=== PATIENT | female | born 1995 | race Caucasian/White ===

== ENCOUNTER 2016-03-21 14:48 | Emergency (ER) | payer BC, MEDICAID ==
[~2016-03-21] VITALS: Ht 177.8 cm; Wt 64.4 kg
[~2016-03-21 14:48] MED LIST: BACT800T5 PO; CLIN1CAP6 PO; DOLU1TAB4 PO; EMTR1TAB5 PO; TRAM50TA PO
[2016-03-21 14:56] VITALS: BP 105/64; PULSE 94; RESP 16; TEMP 99.4; O2SAT 100
--- NOTE | 2016-03-21 16:25 | PD ---
HPI Chief Complaint: Skin Problem Time Seen by Provider: 15:48 Travel History International Travel<30 days: No Contact w/Intl Traveler<30days: No Traveled to known affect area: No History of Present Illness HPI 20-year-old female complains of infected lesions on the lower extremity. Patient has history of IV drug abuse and MRSA. Patient also has history of HIV positive. Patient states that she started having infected lesion on the lower extremity and the groin area for the past few days. Patient denies any fever chills. Patient denies any chest pain or shortness of breath. Reviewing medical records, patient had TD booster 3 years ago. Patient was admitted in August 2015 for endocarditis and polysubstance abuse. Patient was discharged on HIV medication. Patient also was Given 6 weeks of IV antibiotic at that time. PFSH Past Medical History ADHD: Yes Arthritis: No Asthma: No Autoimmune Disease: Yes Bipolar Disorder: Yes Anxiety: Yes Depression: Yes Heart Rhythm Problems: No Cancer: No Cardiovascular Problems: No High Cholesterol: No Chemotherapy: No Chest Pain: No Congestive Heart Failure: No COPD: No Cerebrovascular Accident: No Diabetes: No Diminished Hearing: No Endocrine: No Gastrointestinal Disorders: Yes GERD: No Genitourinary: No Headaches: No Hiatal Hernia: No Immune Disorder: Yes (HIV: DIAGNOSED JANUARY 2014) Implanted Vascular Access Dvce: No Kidney Stones: No Musculoskeletal: No Neurologic: Yes Psychiatric: Yes Reproductive: No Respiratory: No Immunizations Current: Yes (ALL UTD ) Migraines: Yes Pneumonia: Yes (HX) Radiation Therapy: No Renal Failure: No Seizures: No Sickle Cell Disease: No Sleep Apnea: No Thyroid Disease: No Ulcer: No ?: Not : 1 : 1 Past Surgical History Abdominal Surgery: Yes (hernia repair as an ) AICD: No Arteriovenous Shunt: No Cardiac Surgery: No Ear Surgery: No Endocrine Surgery: No Eye Surgery: No Genitourinary Surgery: No Gynecologic Surgery: No Insulin Pump: No Joint Replacement: No Oral Surgery: No Pacemaker: No Thoracic Surgery: No Tonsillectomy: Yes Other Surgery: Yes ("shattered face" with stitches, LEFT ARM) Social History Alcohol Use: Yes (OCC) Tobacco Use: Yes (1PPD) Substance Use: Yes (MARIJUANA, DILAUDID IV) Allergies-Medications (Allergen,Severity, Reaction): Coded Allergies: Buspar (Unverified Adverse Reaction, Severe, Irritability/Anxiety, 03/21/16) *MDRO Multi-Drug Resistant Organism (Verified Adverse Reaction, Unknown, ) MRSA (wrist wound) 11/2014; MRSA (blood & arm-08/2015)&(hand-01/21/16) Reported Meds & Prescriptions Reported Meds & Active Scripts Active Tramadol (Tramadol HCl) 50 Mg Tab 50 Mg PO Q8H PRN Bactrim DS (Sulfamethoxazole-Trimethoprim) 800-160 Mg Tab 1 Tab PO BID Clindamycin (Clindamycin HCl) 300 Mg Cap 300 Mg PO Q6H 10 Days Reported Tivicay (Dolutegravir Sodium) 10 Mg Tab 10 Mg PO DAILY Truvada (Emtricitabine-Tenofovir Disoproxil Fumarate) 100-150 Mg Tab 1 Tab PO DAILY Review of Systems General / Constitutional: No: Fever Eyes: No: Visual changes HENT: No: Headaches Cardiovascular: No: Chest Pain or Discomfort Respiratory: No: Shortness of Breath Gastrointestinal: No: Abdominal Pain Genitourinary: No: Dysuria Musculoskeletal: No: Pain Skin: No Rash Neurologic: No: Weakness Psychiatric: No: Depression Endocrine: No: Polydipsia Hematologic/Lymphatic: No: Easy Bruising Physical Exam Narrative GENERAL: Well-nourished, well-developed patient. SKIN: Warm and dry. Patient has multiple areas of infected lesions on the lower extremity associated with redness swelling. No discharge. No induration. HEAD: Normocephalic. EYES: No scleral icterus. No injection or drainage. NECK: Supple, trachea midline. No JVD or lymphadenopathy. CARDIOVASCULAR: Regular rate and rhythm without murmurs, gallops, or rubs. No heart murmur noted. RESPIRATORY: Breath sounds equal bilaterally. No accessory muscle use. GASTROINTESTINAL: Abdomen soft, non-tender, nondistended. MUSCULOSKELETAL: No cyanosis, or edema. BACK: Nontender without obvious deformity. No CVA tenderness. Data Data Last Documented VS Vital Signs Date Time Temp Pulse Resp B/P Pulse Ox O2 Delivery O2 Flow Rate FiO2 03/21/16 14:56 99.4 94 16 105/64 100 MDM Medical Decision Making Medical Screen Exam Complete: Yes Emergency Medical Condition: Yes Differential Diagnosis Differential diagnosis including folliculitis, cellulitis, abscess, bacterial endocarditis. Narrative Course 20-year-old female with multiple infected lesions lower extremity and groin. History IV drug abuse. History of HIV positive. Patient's afebrile, vital signs stable. Patient does not have any tachycardia or tachypnea. Patient does not have any cardiac murmur. Patient was offered clindamycin IM injection and prescription for clindamycin and Bactrim DS. Patient refused treatment and left AMA. Diagnosis Primary Impression: CELLULITIS OF UNSPECIFIED PART OF LIMB Patient Instructions: General Instructions Additional Instructions: Patient left AMA. Disposition: 07 AGAINST MEDICAL ADVICE Condition: Grayson Quintana MD Mar 21, 2016 16:25
[2016-03-22] MEDS ORDERED: CLIN1CAP5 PO (10:24)
[2016-03-22] MEDS ORDERED: BACT800T5 PO (10:24)
== END 2016-03-21 16:12 | disposition left against medical advice (07) ==
LOC: PHED 14:48
DX: L03.119 Cellulitis of unspecified part of limb (principal); F17.200 Nicotine dependence, unspecified, uncomplicated; Z21 Asymptomatic human immunodeficiency virus [HIV] infection status; Z86.14 Personal history of Methicillin resistant Staphylococcus aureus infection; Z87.19 Personal history of other diseases of the digestive system; Z87.01 Personal history of pneumonia (recurrent); Z86.69 Personal history of other diseases of the nervous system and sense organs; Z53.29 Procedure and treatment not carried out because of patient's decision for other reasons
CPT/HCPCS: 99282

== ENCOUNTER 2016-03-22 08:04 | Emergency (ER) | payer BC, MEDICAID ==
[~2016-03-22] VITALS: Ht 177.8 cm; Wt 63.5 kg
[2016-03-22 08:08] VITALS: BP 102/72; PULSE 88; RESP 16; TEMP 97.4; O2SAT 100
--- NOTE | 2016-03-22 08:28 | PD ---
HPI Chief Complaint: Skin Problem Time Seen by Provider: 08:13 Travel History International Travel<30 days: No Contact w/Intl Traveler<30days: No Traveled to known affect area: No History of Present Illness HPI 20-year-old female complains infected lesions on the lower extremity. Patient states that the symptoms started several days ago. Patient has history of HIV positive and IV drug abuse. Patient does not know her recent CD4 count or viral loads. Patient states that she is on HIV medication. Patient does not know the name of her ID specialist. Patient denies any fever chills. Patient denies any chest pain or shortness of breath. Patient was seen in emergency room yesterday and left AMA. Patient returned today requesting blood work and treatment. Patient's up-to-date with TD booster. PFSH Past Medical History ADHD: Yes Arthritis: No Asthma: No Autoimmune Disease: Yes Bipolar Disorder: Yes Anxiety: Yes Depression: Yes Heart Rhythm Problems: No Cancer: No Cardiovascular Problems: No High Cholesterol: No Chemotherapy: No Chest Pain: No Congestive Heart Failure: No COPD: No Cerebrovascular Accident: No Diabetes: No Diminished Hearing: No Endocrine: No Gastrointestinal Disorders: Yes GERD: No Genitourinary: No Headaches: No Hiatal Hernia: No Heparin Induced Thrombocytopen: No Hypertension: No Immune Disorder: Yes (HIV: DIAGNOSED JANUARY 2014) Implanted Vascular Access Dvce: No Kidney Stones: No Musculoskeletal: No Neurologic: Yes Psychiatric: Yes Reproductive: No Respiratory: No Immunizations Current: Yes (ALL UTD ) Migraines: Yes Pneumonia: Yes (HX) Radiation Therapy: No Renal Failure: No Seizures: No Sickle Cell Disease: No Sleep Apnea: No Thyroid Disease: No Ulcer: No Tetanus Vaccination: < 5 Years ?: Not LMP: UNKNOWN : 1 : 1 Past Surgical History Abdominal Surgery: Yes (hernia repair as an ) AICD: No Arteriovenous Shunt: No Cardiac Surgery: No Ear Surgery: No Endocrine Surgery: No Eye Surgery: No Genitourinary Surgery: No Gynecologic Surgery: No Insulin Pump: No Joint Replacement: No Neurologic Surgery: No Oral Surgery: No Pacemaker: No Thoracic Surgery: No Tonsillectomy: Yes Other Surgery: Yes ("shattered face" with stitches, LEFT ARM) Social History Alcohol Use: Yes (OCC) Tobacco Use: Yes (1PPD) Substance Use: Yes (MARIJUANA, DILAUDID IV) Allergies-Medications (Allergen,Severity, Reaction): Coded Allergies: Buspar (Unverified Adverse Reaction, Severe, Irritability/Anxiety, 03/22/16) *MDRO Multi-Drug Resistant Organism (Verified Adverse Reaction, Unknown, ) MRSA (wrist wound) 11/2014; MRSA (blood & arm-08/2015)&(hand-01/21/16) Reported Meds & Prescriptions Reported Meds & Active Scripts Active Reported Tivicay (Dolutegravir Sodium) 10 Mg Tab 10 Mg PO DAILY Review of Systems General / Constitutional: No: Fever Eyes: No: Visual changes HENT: No: Headaches Cardiovascular: No: Chest Pain or Discomfort Respiratory: No: Shortness of Breath Gastrointestinal: No: Abdominal Pain Genitourinary: No: Dysuria Musculoskeletal: No: Pain Skin: No Rash Neurologic: No: Weakness Psychiatric: No: Depression Endocrine: No: Polydipsia Hematologic/Lymphatic: No: Easy Bruising Physical Exam Narrative GENERAL: Well-nourished, well-developed patient. SKIN: Warm and dry. Patient has multiple infected lesions on the lower extremity associated with redness swelling. No induration. HEAD: Normocephalic. EYES: No scleral icterus. No injection or drainage. NECK: Supple, trachea midline. No JVD or lymphadenopathy. CARDIOVASCULAR: Regular rate and rhythm without murmurs, gallops, or rubs. RESPIRATORY: Breath sounds equal bilaterally. No accessory muscle use. GASTROINTESTINAL: Abdomen soft, non-tender, nondistended. MUSCULOSKELETAL: No cyanosis, or edema. BACK: Nontender without obvious deformity. No CVA tenderness. Neurologic exam normal. Data Data Last Documented VS Vital Signs Date Time Temp Pulse Resp B/P Pulse Ox O2 Delivery O2 Flow Rate FiO2 03/22/16 09:32 95 16 119/69 100 Room Air 03/22/16 08:08 97.4 Orders Complete Blood Count With Diff (03/22/16 08:17) Comprehensive Metabolic Panel (03/22/16 08:17) Blood Culture (03/22/16 08:17) Urinalysis - C+S If Indicated (03/22/16 08:17) Drug Screen, Random Urine (03/22/16 08:17) Chest, Single Ap (03/22/16 08:17) Iv Access Insert/Monitor (03/22/16 08:17) Ecg Monitoring (03/22/16 08:17) Oximetry (03/22/16 08:17) Ed Urine Pregnancytest Poc (03/22/16 08:17) Vancomycin Inj (Vancomycin Inj) (03/22/16 08:30) Consult Vascular Access Team (03/22/16 ) Clindamycin Inj (Cleocin Inj) (03/22/16 09:30) Labs Laboratory Tests Test 03/22/16 09:15 White Blood Count 5.4 TH/MM3 Red Blood Count 3.60 MIL/MM3 Hemoglobin 10.2 GM/DL Hematocrit 30.9 % Mean Corpuscular Volume 85.9 FL Mean Corpuscular Hemoglobin 28.4 PG Mean Corpuscular Hemoglobin 33.1 % Concent Red Cell Distribution Width 12.9 % Platelet Count 140 TH/MM3 Mean Platelet Volume 9.3 FL Neutrophils (%) (Auto) 69.6 % Lymphocytes (%) (Auto) 18.3 % Monocytes (%) (Auto) 11.3 % Eosinophils (%) (Auto) 0.6 % Basophils (%) (Auto) 0.2 % Neutrophils # (Auto) 3.8 TH/MM3 Lymphocytes # (Auto) 1.0 TH/MM3 Monocytes # (Auto) 0.6 TH/MM3 Eosinophils # (Auto) 0.0 TH/MM3 Basophils # (Auto) 0.0 TH/MM3 CBC Comment DIFF FINAL Differential Comment Sodium Level 141 MEQ/L Potassium Level 3.5 MEQ/L Chloride Level 108 MEQ/L Carbon Dioxide Level 23.7 MEQ/L Anion Gap 9 MEQ/L Creatinine 0.68 MG/DL Estimat Glomerular Filtration 110 ML/MIN Rate Random Glucose 116 MG/DL Calcium Level 8.3 MG/DL Aspartate Amino Transf 40 U/L (AST/SGOT) Alkaline Phosphatase 181 U/L Total Protein 7.1 GM/DL Albumin 3.1 GM/DL MDM Medical Decision Making Medical Screen Exam Complete: Yes Emergency Medical Condition: Yes Medical Record Reviewed: Yes Interpretation(s) Last Impressions Chest X-Ray 03/22/1617 Signed Impressions: Service Date/Time: Tuesday, March 22, 2016 08:39 - CONCLUSION: No acute disease. No significant change has occurred. Lazarus Burton MD 10:22 AM. CBC hemoglobin 10.2 hematocrit 30.9. WBC 5.4. Normal differential. CMP incomplete results. Patient requests to leave now. Differential Diagnosis Differential diagnosis including folliculitis, cellulitis, abscess. Patient has history of endocarditis in the past. Narrative Course 20-year-old female with history of HIV positive, IV drug abuse, with infected lesions lower extremity. Patient has history of endocarditis in the past. Vancomycin 1 g IV given. Diagnosis Primary Impression: CELLULITIS OF UNSPECIFIED PART OF LIMB Patient Instructions: General Instructions Additional Instructions: Take medications as directed. Follow-up with local physician. Return if worse. Med/Other Pt SpecificInfo: Prescription(s) given Scripts Clindamycin 150 Mg Cap2 Tab PO Q6H #80 CAP Prov:Grayson Verma MD 03/22/16 Sulfamethoxazole-Trimethoprim (Bactrim DS)800-160 Mg Tab1 Tab PO BID #20 TAB Prov:Grayson Verma MD 03/22/16 Disposition: 01 DISCHARGE HOME Condition: Stable Grayson Verma MD Mar 22, 2016 08:28
[2016-03-22] MEDS ORDERED: VANCOMYCIN INJ 1,000 MG in SODIUM CHLOR 0.9% 250 ML INJ 250 ML IV ONE (08:30)
--- NOTE | 2016-03-22 09:07 | RADHPO ---
EXAM DATE/TIME: 03/22/2016 08:39 [facility] COMPARISON: CHEST SINGLE AP, September 01, 2015, 9:08. INDICATIONS : Short of breath. MEDICAL HISTORY : None. SURGICAL HISTORY : None. ENCOUNTER: Initial ACUITY: 1 day PAIN SCORE: 0/10 LOCATION: Bilateral chest FINDINGS: A single view of the chest demonstrates the lungs to be symmetrically aerated without evidence of mas s, infiltrate or effusion. The cardiomediastinal contours are unremarkable. Osseous structures are intact. CONCLUSION: No acute disease. No significant change has occurred. Lazarus Burton MD on March 22, 2016 at 9:03 Board Certified Radiologist. This report was verified electronically.
[2016-03-22] MEDS ORDERED: CLINDAMYCIN PHOS 600 MG/4 ML VIAL IM ONE (09:30)
[2016-03-22 09:31] VITALS: RESP 16; O2SAT 100
[2016-03-22 09:32] VITALS: BP 119/69; PULSE 95; RESP 16; O2SAT 100
[2016-03-22 09:45] LABS: AUTOMATED NEUTROPHIL # 3.8 TH/MM3 (1.8-7.7); BASOPHIL % 0.2 % (0.0-2.0); EOSINOPHIL % 0.6 % (0.0-4.0); HEMATOCRIT 30.9 % (35.0-46.0); HEMO FLAGS DIFF FINAL; LYMPH % 18.3 % (9.0-44.0); MEAN CELL VOLUME 85.9 FL (80.0-100.0); MEAN CORPUSCULAR HEMOGLOBIN 28.4 PG (27.0-34.0); MEAN CORPUSCULAR HGB CONC 33.1 % (32.0-36.0); MONO % 11.3 % (0.0-8.0); NEUT % 69.6 % (16.0-70.0); PLATELET COUNT 140 TH/MM3 (150-450); RED CELL DISTRIBUTION WIDTH 12.9 % (11.6-17.2); WHITE BLOOD COUNT 5.4 TH/MM3 (4.0-11.0)
[2016-03-22 10:13] LABS: BICARBONATE 23.7 MEQ/L (21.0-32.0)
[2016-03-22 10:15] LABS: ANION GAP 9 MEQ/L (5-15); CHLORIDE 108 MEQ/L (98-107); POTASSIUM 3.5 MEQ/L (3.5-5.1); SODIUM (NA) 141 MEQ/L (136-145)
[2016-03-22 10:16] LABS: AST (GOT) 40 U/L (16-38); GLOMERULAR FILTRATION RATE 110 ML/MIN (>89)
[2016-03-22 10:19] LABS: ALKALINE PHOSPHATASE 181 U/L (45-117)
[2016-03-22] MEDS ORDERED: CLIN1CAP5 PO (10:24)
[2016-03-22] MEDS ORDERED: BACT800T5 PO (10:24)
[2016-03-22 10:31] LABS: ALT (GPT) 60 U/L (9-42)
[2016-03-22 10:32] LABS: BLOOD UREA NITROGEN 10 MG/DL (7-18)
[2016-03-22 10:39] LABS: TOTAL BILIRUBIN ADULT 0.3 MG/DL (0.2-1.0)
== END 2016-03-22 10:29 | disposition home or self-care (01) ==
LOC: PHED 08:04
DX: L03.119 Cellulitis of unspecified part of limb (principal); R06.02 Shortness of breath; B20 Human immunodeficiency virus [HIV] disease; F19.20 Other psychoactive substance dependence, uncomplicated; F17.210 Nicotine dependence, cigarettes, uncomplicated; F90.9 Attention-deficit hyperactivity disorder, unspecified type
CPT/HCPCS: 71010; 80053; 85025; 87040; 96372

== ENCOUNTER 2016-05-03 19:58 | Emergency (ER) | payer BC, OTHER ==
[~2016-05-03] VITALS: Ht 175.3 cm; Wt 61.0 kg
[~2016-05-03 19:58] MED LIST changes: +CLIN1CAP5 PO; -CLIN1CAP6 PO; -TRAM50TA PO
[2016-05-03 19:59] VITALS: BP 121/74; PULSE 99; RESP 18; TEMP 98.3; O2SAT 99
[2016-05-04 00:04] VITALS: BP 119/56; PULSE 97; RESP 20; TEMP 97.7; O2SAT 100
[2016-05-04] MEDS ORDERED: KETOROLAC TROMETHAMINE 30 MG/ML (IVP) VIAL IVP ONE (00:45)
[2016-05-04] MEDS ORDERED: CLINDAMYCIN INJ 600 MG in SODIUM CHLORIDE 0.9% INJ 100 ML IV ONE (00:45)
[2016-05-04] MEDS ORDERED: LIDOCAINE HCL 1% 50 ML VIAL INFIL ONE (00:45)
[2016-05-04] MEDS ORDERED: SODIUM CHLOR 0.9% 1000 ML INJ 1,000 ML IV ONE (00:45)
[2016-05-04] MEDS ORDERED: KETOROLAC TROMETHAMINE 60 MG/2 ML (IM) VIAL IM ONE (00:45)
--- NOTE | 2016-05-04 00:45 | PD ---
HPI Chief Complaint: Skin Problem Time Seen by Provider: 00:02 Travel History International Travel<30 days: No Contact w/Intl Traveler<30days: No Traveled to known affect area: No History of Present Illness HPI 21yo F with PMH of HIV not on medication, IVDA uses IV dilaudid presents to the ED with c/o right buttock abscess for 2 days. States it started to drain today. States fever in the morning. Denies chest pain, vomiting, abdominal pain. PFSH Past Medical History ADHD: Yes Arthritis: No Asthma: No Autoimmune Disease: Yes Bipolar Disorder: Yes Anxiety: Yes Depression: Yes Heart Rhythm Problems: No Cancer: No Cardiovascular Problems: No High Cholesterol: No Chemotherapy: No Chest Pain: No Congestive Heart Failure: No COPD: No Cerebrovascular Accident: No Diabetes: No Diminished Hearing: No Endocrine: No Gastrointestinal Disorders: Yes GERD: No Genitourinary: No Headaches: No Hiatal Hernia: No Heparin Induced Thrombocytopen: No Hypertension: No Immune Disorder: Yes (HIV: DIAGNOSED JANUARY 2014) Implanted Vascular Access Dvce: No Kidney Stones: No Musculoskeletal: No Neurologic: Yes Psychiatric: Yes Reproductive: No Respiratory: No Immunizations Current: Yes (ALL UTD ) Migraines: Yes Pneumonia: Yes (HX) Radiation Therapy: No Renal Failure: No Seizures: No Sickle Cell Disease: No Sleep Apnea: No Thyroid Disease: No Ulcer: No ?: Unknown LMP: IRREGULAR : 1 : 1 Past Surgical History Abdominal Surgery: Yes (hernia repair as an ) AICD: No Arteriovenous Shunt: No Cardiac Surgery: No Ear Surgery: No Endocrine Surgery: No Eye Surgery: No Genitourinary Surgery: No Gynecologic Surgery: No Insulin Pump: No Joint Replacement: No Neurologic Surgery: No Oral Surgery: No Pacemaker: No Thoracic Surgery: No Tonsillectomy: Yes Other Surgery: Yes ("shattered face" with stitches, LEFT ARM) Social History Alcohol Use: Yes (OCC) Tobacco Use: Yes (1PPD) Substance Use: Yes (MARIJUANA, DILAUDID IV/METH) Allergies-Medications (Allergen,Severity, Reaction): Coded Allergies: Buspar (Unverified Adverse Reaction, Severe, Irritability/Anxiety, 05/03/16 ) *MDRO Multi-Drug Resistant Organism (Verified Adverse Reaction, Unknown, ) MRSA (wrist wound) 11/2014; MRSA (blood & arm-08/2015)&(hand-01/21/16) Reported Meds & Prescriptions Reported Meds & Active Scripts Active Clindamycin (Clindamycin HCl) 150 Mg Cap 2 Tab PO Q6H Bactrim DS (Sulfamethoxazole-Trimethoprim) 800-160 Mg Tab 1 Tab PO BID Reported Tivicay (Dolutegravir Sodium) 10 Mg Tab 10 Mg PO DAILY Truvada (Emtricitabine-Tenofovir Disoproxil Fumarate) 100-150 Mg Tab 1 Tab PO DAILY Review of Systems Except as stated in HPI: all other systems reviewed are Neg Physical Exam Narrative GENERAL: 21yo F not in distress. SKIN: Warm and dry. HEAD: Atraumatic. Normocephalic. EYES: Pupils equal and round. No scleral icterus. No injection or drainage. ENT: No nasal bleeding or discharge. Mucous membranes pink and moist. NECK: Trachea midline. No JVD. CARDIOVASCULAR: Regular rate and rhythm. No murmur appreciated. RESPIRATORY: No accessory muscle use. Clear to auscultation. Breath sounds equal bilaterally. GASTROINTESTINAL: Abdomen soft, non-tender, nondistended. No rebound tenderness or guarding. BUTTOCKS: +3cm by 3cm erythema with central small 0.5cm fluctuance in right gluteus. Draining sanguinous fluid with expression. MUSCULOSKELETAL: No obvious deformities. No clubbing. No cyanosis. No edema. NEUROLOGICAL: Awake and alert. No obvious cranial nerve deficits. Motor grossly within normal limits. Normal speech. PSYCHIATRIC: Appropriate mood and affect; insight and judgment normal.2 Data Data Last Documented VS Vital Signs Date Time Temp Pulse Resp B/P Pulse Ox O2 Delivery O2 Flow Rate FiO2 05/04/16 00:04 97.7 97 20 119/56 100 Room Air Orders Lidocaine 1% Inj (50 Ml) (Xylocaine 1% I (05/04/16 00:45) Ketorolac Inj (Toradol Inj) (05/04/16 00:45) Basic Metabolic Panel (Bmp) (05/04/16 00:45) Complete Blood Count With Diff (05/04/16 00:45) Blood Culture (05/04/16 00:45) Iv Access Insert/Monitor (05/04/16 00:45) Ketorolac Inj (Toradol Inj) (05/04/16 00:45) Clindamycin Inj (Cleocin Inj) (05/04/16 00:45) Sodium Chlor 0.9% 1000 Ml Inj (Ns 1000 M (05/04/16 00:45) Labs Laboratory Tests Test 05/04/16 01:12 White Blood Count 7.9 TH/MM3 Red Blood Count 4.32 MIL/MM3 Hemoglobin 12.3 GM/DL Hematocrit 35.4 % Mean Corpuscular Volume 82.1 FL Mean Corpuscular Hemoglobin 28.6 PG Mean Corpuscular Hemoglobin 34.8 % Concent Red Cell Distribution Width 13.4 % Platelet Count 251 TH/MM3 Mean Platelet Volume 8.0 FL Neutrophils (%) (Auto) 67.2 % Lymphocytes (%) (Auto) 19.3 % Monocytes (%) (Auto) 10.6 % Eosinophils (%) (Auto) 2.4 % Basophils (%) (Auto) 0.5 % Neutrophils # (Auto) 5.3 TH/MM3 Lymphocytes # (Auto) 1.5 TH/MM3 Monocytes # (Auto) 0.8 TH/MM3 Eosinophils # (Auto) 0.2 TH/MM3 Basophils # (Auto) 0.0 TH/MM3 CBC Comment DIFF FINAL Differential Comment Sodium Level 138 MEQ/L Potassium Level 4.1 MEQ/L Chloride Level 103 MEQ/L Carbon Dioxide Level 26.2 MEQ/L Anion Gap 9 MEQ/L Blood Urea Nitrogen 16 MG/DL Creatinine 0.68 MG/DL Estimat Glomerular Filtration 109 ML/MIN Rate Random Glucose 104 MG/DL Calcium Level 9.1 MG/DL MDM Medical Decision Making Medical Screen Exam Complete: Yes Emergency Medical Condition: Yes Interpretation(s) Laboratory Tests Test 05/04/16 01:12 White Blood Count 7.9 TH/MM3 (4.0-11.0) Red Blood Count 4.32 MIL/MM3 (4.00-5.30) Hemoglobin 12.3 GM/DL (11.6-15.3) Hematocrit 35.4 % (35.0-46.0) Mean Corpuscular Volume 82.1 FL (80.0-100.0) Mean Corpuscular Hemoglobin 28.6 PG (27.0-34.0) Mean Corpuscular Hemoglobin 34.8 % Concent (32.0-36.0) Red Cell Distribution Width 13.4 % (11.6-17.2) Platelet Count 251 TH/MM3 (150-450) Mean Platelet Volume 8.0 FL (7.0-11.0) Neutrophils (%) (Auto) 67.2 % (16.0-70.0) Lymphocytes (%) (Auto) 19.3 % (9.0-44.0) Monocytes (%) (Auto) 10.6 % (0.0-8.0) Eosinophils (%) (Auto) 2.4 % (0.0-4.0) Basophils (%) (Auto) 0.5 % (0.0-2.0) Neutrophils # (Auto) 5.3 TH/MM3 (1.8-7.7) Lymphocytes # (Auto) 1.5 TH/MM3 (1.0-4.8) Monocytes # (Auto) 0.8 TH/MM3 (0-0.9) Eosinophils # (Auto) 0.2 TH/MM3 (0-0.4) Basophils # (Auto) 0.0 TH/MM3 (0-0.2) CBC Comment DIFF FINAL Differential Comment Sodium Level 138 MEQ/L (136-145) Potassium Level 4.1 MEQ/L (3.5-5.1) Chloride Level 103 MEQ/L (98-107) Carbon Dioxide Level 26.2 MEQ/L (21.0-32.0) Anion Gap 9 MEQ/L (5-15) Blood Urea Nitrogen 16 MG/DL (7-18) Creatinine 0.68 MG/DL (0.50-1.00) Estimat Glomerular Filtration 109 ML/MIN Rate (>89) Random Glucose 104 MG/DL (74-106) Calcium Level 9.1 MG/DL (8.5-10.1) Differential Diagnosis Localized abscess Narrative Course 21yo F with localized right gluteus abscess that is already draining on its own. Pt given clindamycin to cover MRSA and toradol for pain. Labs obtained since pt has HIV. No leukocytosis or neutropenia. BMP unremarkable. Pt is not tolerating I&D but it is already draining and we were able to express more pus out. It is very small and will continue to drain. Pt is nontoxic appearing. Return precautions given. VS stable. Diagnosis Primary Impression: Abscess of buttock, right Patient Instructions: General Instructions Departure Forms: Tests/Procedures Additional Instructions: Please follow up with your PMD in 3-7 days. Return to the ED if symptoms worsen. Med/Other Pt SpecificInfo: Prescription(s) given Scripts Ibuprofen 600 Mg [id number] Mg PO Q8HR PRN (PAIN) #20 TAB Ref 0 Prov:Donna Perez DO 05/04/16 Clindamycin 300 Mg [id number] Mg PO Q6H 7 Days Ref 0 Prov:Donna Perez DO 05/04/16 Disposition: 01 DISCHARGE HOME Condition: Stable Donna Perez DO May 04, 2016 00:44
[2016-05-04 01:28] LABS: AUTOMATED NEUTROPHIL # 5.3 TH/MM3 (1.8-7.7); BASOPHIL % 0.5 % (0.0-2.0); EOSINOPHIL # 0.2 TH/MM3 (0-0.4); EOSINOPHIL % 2.4 % (0.0-4.0); HEMATOCRIT 35.4 % (35.0-46.0); HEMO FLAGS DIFF FINAL; LYMPH % 19.3 % (9.0-44.0); LYMPHOCYTE # 1.5 TH/MM3 (1.0-4.8); MEAN CELL VOLUME 82.1 FL (80.0-100.0); MEAN CORPUSCULAR HEMOGLOBIN 28.6 PG (27.0-34.0); MEAN CORPUSCULAR HGB CONC 34.8 % (32.0-36.0); MONO % 10.6 % (0.0-8.0); NEUT % 67.2 % (16.0-70.0); PLATELET COUNT 251 TH/MM3 (150-450); RED BLOOD COUNT 4.32 MIL/MM3 (4.00-5.30); RED CELL DISTRIBUTION WIDTH 13.4 % (11.6-17.2); WHITE BLOOD COUNT 7.9 TH/MM3 (4.0-11.0)
[2016-05-04 01:37] LABS: BICARBONATE 26.2 MEQ/L (21.0-32.0); POTASSIUM 4.1 MEQ/L (3.5-5.1)
[2016-05-04] MEDS ORDERED: IBUP-232 PO (03:11)
[2016-05-04] MEDS ORDERED: CLIN1CAP6 PO (03:11)
== END 2016-05-04 03:38 | disposition home or self-care (01) ==
LOC: NEPC 19:58
DX: L02.31 Cutaneous abscess of buttock (principal); F17.210 Nicotine dependence, cigarettes, uncomplicated; F12.90 Cannabis use, unspecified, uncomplicated; F11.90 Opioid use, unspecified, uncomplicated
CPT/HCPCS: 80048; 85025; 87040; 96374; 96375; 99283; J1885; J7030

== ENCOUNTER 2016-06-02 17:03 | Emergency (ER) | payer BC, OTHER ==
[~2016-06-02] VITALS: Ht 167.6 cm; Wt 60.0 kg
[~2016-06-02 17:03] MED LIST changes: +CLIN1CAP6 PO; +IBUP-232 PO
[2016-06-02 17:07] VITALS: BP 121/71; PULSE 112; RESP 15; TEMP 98.6; O2SAT 97
[2016-06-02] MEDS ORDERED: SODIUM CHLORIDE 0.9% FLUSH 5 ML FLUSH IVF PRN (17:15)
[2016-06-02 17:18] VITALS: O2SAT 96
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
[2016-06-02] MEDS ORDERED: EMTR1TAB5 PO (18:04)
[2016-06-02] MEDS ORDERED: KLON2TAB PO (18:04)
[2016-06-02 18:12] LABS: ALKALINE PHOSPHATASE 220 U/L (45-117); TOTAL BILIRUBIN ADULT 0.7 MG/DL (0.2-1.0)
[2016-06-02 18:15] LABS: ALT (GPT) 180 U/L (10-53); ANION GAP 9 MEQ/L (5-15); AST (GOT) 79 U/L (15-37); BICARBONATE 27.1 MEQ/L (21.0-32.0); BLOOD UREA NITROGEN 14 MG/DL (7-18); CHLORIDE 103 MEQ/L (98-107); GLOMERULAR FILTRATION RATE 93 ML/MIN (>89); POTASSIUM 5.2 MEQ/L (3.5-5.1); SODIUM (NA) 139 MEQ/L (136-145)
--- NOTE | 2016-06-02 18:25 | RADRPT ---
EXAM DATE/TIME: 06/02/2016 17:47 [facility] COMPARISON: FOREARM LEFT (2VWS), August 20, 2015, 17:45. INDICATIONS : Left forearm pain from fall. MEDICAL HISTORY : None. SURGICAL HISTORY : None. ENCOUNTER: Initial ACUITY: 1 day PAIN SCORE: Non-responsive. LOCATION: distal forearm. FINDINGS: Two view examination of the left forearm demonstrates no evidence of fracture or dislocation. Bony m ineralization is normal. There is soft tissue swelling over the radius. CONCLUSION: Soft tissue swelling with no acute fracture or malalignment. Yang Calderon MD on June 02, 2016 at 18:23 Board Certified Radiologist. This report was verified electronically.
--- NOTE | 2016-06-02 18:26 | RADRPT ---
EXAM DATE/TIME: 06/02/2016 17:50 [facility] COMPARISON: No previous studies available for comparison. INDICATIONS : Left humerus pain from fall. MEDICAL HISTORY : None. SURGICAL HISTORY : None. ENCOUNTER: Initial ACUITY: 1 day PAIN SCORE: Non-responsive. LOCATION: distal homers. FINDINGS: Two view examination of the left humerus demonstrates no evidence of fracture or dislocation. Bony m ineralization is normal. The soft tissue structures are intact. CONCLUSION: Negative trauma study. Yang Calderon MD on June 02, 2016 at 18:24 Board Certified Radiologist. This report was verified electronically.
[2016-06-02 18:36] LABS: AMPHETAMINE, URINE POS (NEG); BARBITURATES, URINE NEG (NEG); COCAINE, URINE NEG (NEG)
[2016-06-02 18:50] LABS: AUTOMATED NEUTROPHIL # 2.5 TH/MM3 (1.8-7.7); BASOPHIL % 0.4 % (0.0-2.0); EOSINOPHIL # 0.1 TH/MM3 (0-0.4); EOSINOPHIL % 1.3 % (0.0-4.0); HEMATOCRIT 35.3 % (35.0-46.0); HEMO FLAGS DIFF FINAL; LYMPH % 32.7 % (9.0-44.0); LYMPHOCYTE # 1.5 TH/MM3 (1.0-4.8); MEAN CELL VOLUME 84.6 FL (80.0-100.0); MEAN CORPUSCULAR HEMOGLOBIN 28.9 PG (27.0-34.0); MEAN CORPUSCULAR HGB CONC 34.1 % (32.0-36.0); MONO % 10.7 % (0.0-8.0); NEUT % 54.9 % (16.0-70.0); PLATELET COUNT 152 TH/MM3 (150-450); RED BLOOD COUNT 4.17 MIL/MM3 (4.00-5.30); RED CELL DISTRIBUTION WIDTH 15.1 % (11.6-17.2); WHITE BLOOD COUNT 4.6 TH/MM3 (4.0-11.0)
[2016-06-02] MEDS ORDERED: NAPR500T PO (18:53)
== END 2016-06-02 19:47 | disposition home or self-care (01) ==
LOC: NEPC 17:03
DX: S50.12XA Contusion of left forearm, initial encounter (principal); F19.10 Other psychoactive substance abuse, uncomplicated; F17.210 Nicotine dependence, cigarettes, uncomplicated; F11.90 Opioid use, unspecified, uncomplicated; F12.90 Cannabis use, unspecified, uncomplicated; F15.90 Other stimulant use, unspecified, uncomplicated; Y29.XXXA Contact with blunt object, undetermined intent, initial encounter; Y92.009 Unspecified place in unspecified non-institutional (private) residence as the place of occurrence of the external cause; Y09 Assault by unspecified means
CPT/HCPCS: 73060; 73090; 80053; 80307; 84703; 85025; 99284

== ENCOUNTER 2016-06-02 21:07 | Emergency (ER) | payer BC ==
[~2016-06-02 21:07] MED LIST changes: +KLON2TAB PO; +NAPR500T PO
[2016-06-02 21:10] VITALS: BP 121/75; PULSE 95; RESP 14; TEMP 97.5; O2SAT 98
[2016-06-02 21:54] VITALS: BP 112/69; PULSE 83; RESP 14; O2SAT 98
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
== END 2016-06-03 07:40 | disposition home or self-care (01) ==
LOC: NEPC 21:07 → NEPA 06-03 07:40
DX: F11.23 Opioid dependence with withdrawal (principal); Y09 Assault by unspecified means; F17.210 Nicotine dependence, cigarettes, uncomplicated; F12.90 Cannabis use, unspecified, uncomplicated; F15.90 Other stimulant use, unspecified, uncomplicated
CPT/HCPCS: 99281

== ENCOUNTER 2016-08-04 07:17 | Inpatient (IN) | payer BC ==
[2016-08-04] VITALS (12 sets, daily range): BP systolic 74–113; BP diastolic 39–56; PULSE 17–132; RESP 16–23; TEMP 98.6–99.2; O2SAT 99–100
[~2016-08-04] VITALS: Ht 177.8 cm; Wt 63.6 kg
[~2016-08-04 07:17] MED LIST changes: -BACT800T5 PO; -CLIN1CAP5 PO; -CLIN1CAP6 PO; -DOLU1TAB4 PO; -IBUP-232 PO
[2016-08-04] MEDS ORDERED: SODIUM CHLOR 0.9% 1000 ML INJ 1,000 ML IV ONE ×4 (07:49→10:00)
[2016-08-04] MEDS ORDERED: SODIUM CHLOR 0.9% 1000 ML INJ 800 ML IV ONE (07:49)
--- NOTE | 2016-08-04 07:57 | PD ---
HPI Chief Complaint: Abdominal Pain Time Seen by Provider: 07:49 Travel History International Travel<30 days: No Contact w/Intl Traveler<30days: No Traveled to known affect area: No History of Present Illness HPI This is a 21-year-old female with history of HIV disease, hepatitis C, who presents today with complaints of generalized "whole body" pain. The patient states that she has been progressively feeling worse over the last 3 days. She denies any fevers. She does report abdominal cramps and diarrhea. She also reports dysuria. She also reports a cough with productive yellow phlegm. The patient is an extremely poor historian. She states she's been off her HIV meds for 5 days. She also reports that she's recently had a viral load that was undetectable as well as a high CD4 count. I told that she could give at this point. PFSH Past Medical History ADHD: Yes Arthritis: No Asthma: No Autoimmune Disease: Yes Bipolar Disorder: Yes Anxiety: Yes Depression: Yes Heart Rhythm Problems: No Cancer: No Cardiovascular Problems: No High Cholesterol: No Chemotherapy: No Chest Pain: No Congestive Heart Failure: No COPD: No Cerebrovascular Accident: No Diabetes: No Diminished Hearing: No Endocrine: No Gastrointestinal Disorders: Yes GERD: No Genitourinary: No Headaches: No Hiatal Hernia: No Heparin Induced Thrombocytopen: No Hypertension: No Immune Disorder: Yes (HIV: DIAGNOSED JANUARY 2014) Implanted Vascular Access Dvce: No Kidney Stones: No Musculoskeletal: No Neurologic: Yes Psychiatric: Yes Reproductive: No Respiratory: No Immunizations Current: Yes (ALL UTD ) Migraines: Yes Pneumonia: Yes (HX) Radiation Therapy: No Renal Failure: No Seizures: No Sickle Cell Disease: No Sleep Apnea: No Thyroid Disease: No Ulcer: No Influenza Vaccination: No ?: Unknown LMP: DENIES HAVING ANYMORE : 1 : 1 Past Surgical History Abdominal Surgery: Yes (hernia repair as an infant) AICD: No Arteriovenous Shunt: No Cardiac Surgery: No Ear Surgery: No Endocrine Surgery: No Eye Surgery: No Genitourinary Surgery: No Gynecologic Surgery: No Insulin Pump: No Joint Replacement: No Neurologic Surgery: No Oral Surgery: No Pacemaker: No Thoracic Surgery: No Tonsillectomy: Yes Other Surgery: Yes ("shattered face" with stitches, LEFT ARM) Social History Alcohol Use: Yes (OCC) Tobacco Use: Yes (1PPD) Substance Use: Yes (MARIJUANA, DILAUDID IV/METH) Allergies-Medications (Allergen,Severity, Reaction): Coded Allergies: Buspar (Verified Adverse Reaction, Severe, Irritability/Anxiety, 08/04/16) *MDRO Multi-Drug Resistant Organism (Verified Adverse Reaction, Unknown, ) MRSA (wrist wound) 11/2014; MRSA (blood & arm-08/2015)&(hand-01/21/16) MRSA PCR screen POSITIVE-08/04/16 Reported Meds & Prescriptions Reported Meds & Active Scripts Active Reported Truvada (Emtricitabine-Tenofovir Disoproxil Fumarate) 100-150 Mg Tab 1 Tab PO DAILY Klonopin (Clonazepam) 2 Mg Tab 2 Mg PO BID Review of Systems ROS Limitations: Uncooperative (somewhat uncooperative), Poor Historian Except as stated in HPI: all other systems reviewed are Neg General / Constitutional: No: Fever, Chills HENT: Positive: Headaches, Lightheadedness, No: Neck Stiffness, Neck Pain Cardiovascular: No: Chest Pain or Discomfort, Palpitations Respiratory: Positive: Cough (productive yellow phlegm), Shortness of Breath Gastrointestinal: Positive: Nausea, Diarrhea, Abdominal Pain (crampy), No: Vomiting Genitourinary: Positive: Dysuria, No: Frequency Skin: No Rash Neurologic: Positive: Weakness, Dizziness, Headache, No: Change in Mentation Physical Exam Narrative GENERAL: Well-developed well-nourished female in no acute respiratory distress. The patient is a poor historian and difficult to get questions answered. SKIN: Focused skin assessment warm/dry. HEAD: Atraumatic. Normocephalic. EYES: No scleral icterus. No injection or drainage. ENT: No nasal bleeding or discharge. Mucous membranes pink and moist. NECK: Trachea midline. Supple. No meningeal signs.. CARDIOVASCULAR: Regular rate and rhythm. No murmur appreciated. RESPIRATORY: No accessory muscle use. Clear to auscultation. Breath sounds equal bilaterally. Decreased respiratory effort GASTROINTESTINAL: Abdomen soft, non-tender, nondistended. The patient complains of crampy abdominal discomfort. MUSCULOSKELETAL: No obvious deformities. No clubbing. No cyanosis. No edema. NEUROLOGICAL: Awake and sleepy but arousable. No obvious cranial nerve deficits. Motor grossly within normal limits. Normal speech. Data Data Last Documented VS Orders Complete Blood Count With Diff (08/04/16 07:49) Comprehensive Metabolic Panel (08/04/16 07:49) Lactic Acid Sepsis Protocol (08/04/16 07:49) Lipase (08/04/16 07:49) Urinalysis - C+S If Indicated (08/04/16 07:49) Blood Culture (08/04/16 07:49) Chest, Single Ap (08/04/16 07:49) Blood Glucose (08/04/16 07:49) Ecg Monitoring (08/04/16 07:49) Iv Access Insert/Monitor (08/04/16 07:49) Oximetry (08/04/16 07:49) Oxygen Administration (08/04/16 07:49) Sodium Chlor 0.9% 1000 Ml Inj (Ns 1000 M (08/04/16 07:49) Sodium Chlor 0.9% 1000 Ml Inj (Ns 1000 M (08/04/16 07:49) Ed Urine Pregnancytest Poc (08/04/16 07:49) Drug Screen, Random Urine (08/04/16 07:49) Naloxone Inj (Narcan Inj) (08/04/16 08:00) Vascular Access Team Consult/P PRN (08/04/16 07:58) Vascular Poc Ultrasound (08/04/16 ) Electrocardiogram (08/04/16 08:22) Norepinephrine-Dextrose Drip (Levophed-D (08/04/16 08:30) Piperacil-Tazo 4.5 Gm Premix (Zosyn 4.5 (08/04/16 08:32) Admit To Inpatient (08/04/16 ) Code Status (08/04/16 08:33) Vital Signs (Adult) LUI.Q1H (08/04/16 08:33) Activity Bed Rest (08/04/16 08:33) ^ Elevate Head Of Bed (08/04/16 08:33) Sodium Chlor 0.9% 1000 Ml Inj (Ns 1000 M (08/04/16 08:33) Sodium Chloride 0.9% Flush (Ns Flush) (08/04/16 08:45) Sodium Chloride 0.9% Flush (Ns Flush) (08/04/16 09:00) Pantoprazole Inj (Protonix Inj) (08/04/16 09:00) Albuterol-Ipratropium Neb (Duoneb Neb) (08/04/16 10:00) Albuterol-Ipratropium Neb (Duoneb Neb) (08/04/16 08:45) Complete Blood Count With Diff (08/05/16 04:00) Comprehensive Metabolic Panel (08/05/16 04:00) Magnesium (Mg) (08/05/16 04:00) Chest, Single Ap (08/05/16 ) Consult Infectious Disease (08/04/16 ) Inside [employer] / Telemetry LUI.Q8H (08/04/16 08:33) Enoxaparin Inj (Lovenox Inj) (08/04/16 08:45) Scd Bilateral/Knee High LUI.BID (08/04/16 08:33) Gary Bilateral/Knee High ULI.QSHIFT (08/04/16 08:33) ^ Initiate Protocol (08/04/16 08:33) ^ Instruction (08/04/16 08:33) [facility] (08/04/16 08:45) Chlorhexidine 2% Cloth (Chlorhexidine 2% (08/05/16 04:00) Chlorhexidine 2% Cloth (Chlorhexidine 2% (08/04/16 08:45) Mrsa Pcr Surveillance (08/04/16 08:33) Inpatient Certification (08/04/16 ) Echo 2d Comp With Doppler (08/04/16 ) Piperacil-Tazo 2.25 Gm Premix (Zosyn 2.2 (08/04/16 14:00) Vancomycin Consult Pharmacy (Vancomycin (08/04/16 08:45) Admit Order (Ed Use Only) (08/04/16 08:52) Labs Laboratory Tests Test 08/04/16 08:00 White Blood Count 31.2 TH/MM3 Red Blood Count 4.13 MIL/MM3 Hemoglobin 12.5 GM/DL Hematocrit 35.1 % Mean Corpuscular Volume 85.0 FL Mean Corpuscular Hemoglobin 30.2 PG Mean Corpuscular Hemoglobin 35.5 % Concent Red Cell Distribution Width 12.9 % Platelet Count 87 TH/MM3 Mean Platelet Volume 10.5 FL Neutrophils (%) (Auto) 83.3 % Lymphocytes (%) (Auto) 8.3 % Monocytes (%) (Auto) 8.2 % Eosinophils (%) (Auto) 0.1 % Basophils (%) (Auto) 0.1 % Neutrophils # (Auto) 26.0 TH/MM3 Lymphocytes # (Auto) 2.6 TH/MM3 Monocytes # (Auto) 2.6 TH/MM3 Eosinophils # (Auto) 0.0 TH/MM3 Basophils # (Auto) 0.0 TH/MM3 CBC Comment AUTO DIFF Differential Total Cells 100 Counted Neutrophils % (Manual) 45 % Band Neutrophils % 36 % Lymphocytes % 10 % Monocytes % 6 % Neutrophils # (Manual) 26.2 TH/MM3 Metamyelocytes 3 % Differential Comment FINAL DIFF MANUAL Toxic Vacuolation PRESENT Dohle Bodies PRESENT Platelet Estimate LOW Platelet Morphology Comment ENLARGED MDM Medical Decision Making Medical Screen Exam Complete: Yes Emergency Medical Condition: Yes Differential Diagnosis Sepsis versus dehydration versus electrolyte abnormalities versus pneumonia versus gastroenteritis Narrative Course 21-year-old female with unfortunate history of HIV, hepatitis C, who presents today with hypotension and pleuritic chest pain. The patient appears lethargic and obtunded. The patient has a white blood cell count of 31,000. Sepsis protocol was initiated on this patient. She does have a history of IVD drug use and could likely have endocarditis. The patient did not respond to IVs fluids for her low blood pressure, and was started on vasopressors. Case is discussed with Dr. Valle, who is gracious enough to admit to his service. Critical Care Narrative Aggregate critical care time was 45 minutes. Time to perform other separately billable procedures was not included in the critical care time. My time did not include minutes spent treating any other patients simultaneously or on activities that did not directly contribute to the patient's treatment. The services I provided to this patient were to treat and/or prevent clinically significant deterioration that could result in: I provided critical care services requiring my management, as noted below: Chart data review, documentation time, medication orders and management, vital sign assessments/reviewing monitor data, ordering and reviewing lab tests, ordering and interpreting/reviewing x-rays and diagnostic studies, care of the patient and discussion of the patient with the admitting physicians. Diagnosis Primary Impression: Sepsis Additional Impressions: Sepsis associated hypotension probable endocarditis history of IVD drug abuse Jhonny Contreras MD August 04, 2016 07:57
[2016-08-04] MEDS ORDERED: NALOXONE HCL 0.4 MG/ML AMP IV PUSH ONE (08:00)
[2016-08-04 08:10] LABS: BASOPHIL % 0.1 % (0.0-2.0); EOSINOPHIL % 0.1 % (0.0-4.0); HEMATOCRIT 35.1 % (35.0-46.0); LYMPH % 8.3 % (9.0-44.0); LYMPHOCYTE # 2.6 TH/MM3 (1.0-4.8); MEAN CORPUSCULAR HEMOGLOBIN 30.2 PG (27.0-34.0); MEAN CORPUSCULAR HGB CONC 35.5 % (32.0-36.0); MONO % 8.2 % (0.0-8.0); NEUT % 83.3 % (16.0-70.0); PLATELET COUNT 87 TH/MM3 (150-450); RED BLOOD COUNT 4.13 MIL/MM3 (4.00-5.30); RED CELL DISTRIBUTION WIDTH 12.9 % (11.6-17.2); WHITE BLOOD COUNT 31.2 TH/MM3 (4.0-11.0)
[2016-08-04 08:13] LABS: HEMO FLAGS AUTO DIFF
--- NOTE | 2016-08-04 08:20 | RADRPT ---
EXAM DATE/TIME: 08/04/2016 07:52 [facility] COMPARISON: CHEST SINGLE AP, March 22, 2016, 8:39. INDICATIONS : Abdomen pain. MEDICAL HISTORY : None. SURGICAL HISTORY : None. ENCOUNTER: Initial ACUITY: 1 day PAIN SCORE: 0/10 LOCATION: Bilateral chest FINDINGS: A single view of the chest demonstrates the lungs to be symmetrically aerated without evidence of mas s, infiltrate or effusion. The cardiomediastinal contours are unremarkable. Osseous structures are intact. CONCLUSION: No acute disease. Truong Holly MD FACR on August 04, 2016 at 8:18 Board Certified Radiologist. This report was verified electronically.
[2016-08-04] MEDS ORDERED: NOREPINEPHRINE-DEXTROSE DRIP 250 ML IV SCH ×2 (08:30→10:00)
[2016-08-04] MEDS ORDERED: VANCOMYCIN INJ 1,000 MG in SODIUM CHLOR 0.9% 250 ML INJ 250 ML IV STA (08:32)
[2016-08-04] MEDS ORDERED: PIPERACIL-TAZO 4.5 GM PREMIX 100 ML IV STA (08:32)
[2016-08-04] MEDS ORDERED: ENOXAPARIN SODIUM 40 MG/0.4 ML SYRINGE SQ SCH (08:45)
[2016-08-04] MEDS ORDERED: Vancomycin Consult Pharmacy 1 EA OTHER SCH (08:45)
[2016-08-04] MEDS ORDERED: SODIUM CHLORIDE 0.9% FLUSH 10 ML FLUSH IV FLUSH PRN (08:45)
[2016-08-04] MEDS ORDERED: CHLORHEXIDINE GLUCONATE 2 % 1 PACK (2 CLOTHS) TOP PRN (08:45)
[2016-08-04] MEDS ORDERED: MISCELLANEOUS NURSING INFORMATION XX SCH (08:45)
[2016-08-04] MEDS ORDERED: RESP: ALBUTEROL 2.5 MG/IPRATROPIUM 0.5 MG NEB (PRN) INH (08:45)
[2016-08-04 08:55] LABS: BICARBONATE 20.7 MEQ/L (21.0-32.0); POTASSIUM 3.6 MEQ/L (3.5-5.1); TOTAL BILIRUBIN ADULT 4.4 MG/DL (0.2-1.0)
[2016-08-04 09:00] LABS: CALCIUM-PROTEIN CORRECTED 7.3 MG/DL (8.5-10.1)
[2016-08-04 09:10] LABS: BANDS 36 % (0-6); METAMYELOCYTES 3 % (0-1); NEUTROPHIL # MANUAL DIFF 26.2 TH/MM3 (1.8-7.7); POLYS (SEG NEUTROPHILS) 45 % (16-70); WBC DIFF SAMPLE 100
[2016-08-04 09:14] LABS: PLATELET ESTIMATE SMEAR LOW (NORMAL); PLATELET MORPHOLOGY ENLARGED (NORMAL); TOXIC VACUOLATION PRESENT (NONE SEEN)
[2016-08-04 09:17] LABS: DOHLE BODIES PRESENT (NONE SEEN); SCAN/DIFF FINAL DIFF MANUAL
[2016-08-04] MEDS ORDERED: HYDROmorphone HCL PF 2 MG/ML VIAL IV PUSH ONE (10:00)
[2016-08-04] MEDS: RESP: ALBUTEROL 2.5 MG/IPRATROPIUM 0.5 MG NEB (SCH) INH ×3 (10:00→21:46)
[2016-08-04] MEDS ORDERED: TERBUTALINE INJ 1 MG/ML AMP SQ PRN (10:00)
--- NOTE | 2016-08-04 10:02 | HHI.HP ---
HPI Service Critical Care Medicine Primary Care Physician No Primary Care Physician Admission Diagnosis Sepsis, hypotension, HIV, Hep C Diagnosis: (1) Septic shock Diagnosis: Principal (2) Acute kidney failure Diagnosis: Principal (3) Acute encephalopathy Diagnosis: Principal (4) Possible endocarditis Diagnosis: Principal (5) Hyponatremia Diagnosis: Principal (6) Thrombocytopenia Diagnosis: Principal (7) Elevated liver enzymes Diagnosis: Principal (8) IVDU (intravenous drug user) Diagnosis: Secondary (9) Polysubstance dependence Diagnosis: Secondary (10) HIV (human immunodeficiency virus infection) Diagnosis: Secondary (11) Hepatitis C Diagnosis: Secondary Chief Complaint: Generalized body ache Chest and abdominal pain Septic shock Travel History International Travel<30 Days: No Contact w/Intl Traveler <30 Da: No Traveled to Known Affected Are: No Sepsis Criteria SIRS Criteria (2 or more): Heart rate over 90, WBC > 40127, < 4000 or > 10% bands Severe Sepsis (+one): Organ Dysfunction, Hypotension, Acute Oliguria/Renal Failure Septic Shock Criteria: Unresponsive to 30ml/kg fluid bolus Criteria Outcome: Meets septic shock criteria History of Present Illness Patient is a 21-year-old female with past medical history significant for 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 She denies any fevers. She also complains about severe left-sided pleuritic chest pain and abdominal pain, and also cough with yellow sputum. Apparently had been off her HIV meds for 5 days. Patient states that recently viral load was undetectable and CD4 count was high even though she does not know how much. Review of records indicate that patient had MRSA endocarditis in the past. I evaluated the patient in the emergency department. Patient is hypotensive tachycardic in moderate to severe distress due to pain. Patient received 2 L normal saline bolus but remained hypotensive, Levophed had been started and now at 5 mcg/m. Patient was emergently moved to the ICU and I placed a right IJ central line. Additional 3 L normal saline bolus been ordered. WBC 31.2 with 36 % bands. Platelet count is 87, sodium is 128 BUN 37 with creatinine 4 (prev creat normal). Bilirubin is 4.4. Renal failure is acute due to severe sepsis and dehydration. She admits to injecting crystal meth IV to the left wrist, patient has tender swelling to the left wrist region. Otherwise she is a very poor historian and difficult to get history. Review of Systems ROS Limitations: Other (as per HPI) Constitutional: COMPLAINS OF: Fatigue Respiratory: COMPLAINS OF: Cough, Shortness of breath Cardiovascular: COMPLAINS OF: Chest pain Gastrointestinal: COMPLAINS OF: Abdominal pain Musculoskeletal: COMPLAINS OF: Joint pain, Muscle aches Integumentary: COMPLAINS OF: Pruritus Neurologic: COMPLAINS OF: Headache Psychiatric: COMPLAINS OF: Anxiety, Mood changes Past Family Social History Allergies: Coded Allergies: Buspar (Verified Adverse Reaction, Severe, Irritability/Anxiety, 08/04/16) *MDRO Multi-Drug Resistant Organism (Verified Adverse Reaction, Unknown, ) MRSA (wrist wound) 11/2014; MRSA (blood & arm-08/2015)&(hand-01/21/16) MRSA PCR screen POSITIVE-08/04/16 Past Medical History ADHD Anxiety and depression Polysubstance abuse History of previous medication overdose HIV Hep C Hx of Pulmonary septic emboli 2016 Left arm abscess s/p I&D on 08/20/2015. Infective endocarditis MRSA (Clinical diagnosis, TTE negative) Past Surgical History Tonsillectomy Umbilical vein repair secondary to hemorrhage as an infant Reported Medications Truvada (Emtricitabine-Tenofovir Disoproxil Fumarate) 100-150 Mg Tab 1 Tab PO DAILY Klonopin (Clonazepam) 2 Mg Tab 2 Mg PO BID Active Ordered Medications Reviewed Family History Unable to obtaine Social History Polysubstance abuse, tobacco use 1PPD, occasional alcohol use, IV amphetamine use, Xanax abuse. (Denies opiate use, but previous H&P notes opiate abuse) Physical Exam Vital Signs Vital Signs Date Time Temp Pulse Resp B/P Pulse Ox O2 Delivery O2 Flow Rate FiO2 08/04/16 09:12 101 19 77/39 100 Nasal Cannula 2 08/04/16 08:40 96 23 85/48 100 Nasal Cannula 2 08/04/16 08:04 98 21 74/39 100 Room Air 08/04/16 07:28 111 16 98/50 99 Room Air 08/04/16 07:20 98.6 128 18 101/56 100 Physical Exam GENERAL: Well-developed well-nourished female in severe distress due to pain. The patient is a poor historian and difficult to get questions answered. SKIN: Warm/dry. HEAD: Atraumatic. Normocephalic. EYES: No scleral icterus. No injection or drainage. ENT: Mucous membranes dry. NECK: Trachea midline. Supple. No meningeal signs.. CARDIOVASCULAR: Regular rate and rhythm. Grade 2 systolic murmur LSB. Tenderness to palpation L upper chest and shoulder, left lateral chest RESPIRATORY: No accessory muscle use. Clear to auscultation. Breath sounds equal bilaterally. GASTROINTESTINAL: Abdomen soft,epigastric and bilateral LQ tenderness. Well healed horizontal surgical scar below umbilicus MUSCULOSKELETAL:No clubbing. No cyanosis. No edema. Tender swelling L wrist anteriorly. Few purple nodule L posterior thigh NEUROLOGICAL: Awake and sleepy but arousable. No obvious cranial nerve deficits. Motor grossly within normal limits. Normal speech. Laboratory Laboratory Tests Test 08/04/16 08/04/16 08:00 08:12 White Blood Count 31.2 Red Blood Count 4.13 Hemoglobin 12.5 Hematocrit 35.1 Mean Corpuscular Volume 85.0 Mean Corpuscular Hemoglobin 30.2 Mean Corpuscular Hemoglobin 35.5 Concent Red Cell Distribution Width 12.9 Platelet Count 87 Mean Platelet Volume 10.5 Neutrophils (%) (Auto) 83.3 Lymphocytes (%) (Auto) 8.3 Monocytes (%) (Auto) 8.2 Eosinophils (%) (Auto) 0.1 Basophils (%) (Auto) 0.1 Neutrophils # (Auto) 26.0 Lymphocytes # (Auto) 2.6 Monocytes # (Auto) 2.6 Eosinophils # (Auto) 0.0 Basophils # (Auto) 0.0 CBC Comment AUTO DIFF Differential Total Cells 100 Counted Neutrophils % (Manual) 45 Band Neutrophils % 36 Lymphocytes % 10 Monocytes % 6 Neutrophils # (Manual) 26.2 Metamyelocytes 3 Differential Comment FINAL DIFF MANUAL Toxic Vacuolation PRESENT Dohle Bodies PRESENT Platelet Estimate LOW Platelet Morphology Comment ENLARGED Sodium Level 128 Potassium Level 3.6 Chloride Level 93 Carbon Dioxide Level 20.7 Anion Gap 14 Blood Urea Nitrogen 37 Creatinine 4.03 Estimat Glomerular Filtration 14 Rate Random Glucose 61 Calcium Level 7.4 Protein Corrected Calcium 7.3 Total Bilirubin 4.4 Aspartate Amino Transf 69 (AST/SGOT) Alanine Aminotransferase 45 (ALT/SGPT) Alkaline Phosphatase 134 Total Protein 7.5 Albumin 3.5 Lipase 141 Lactic Acid Level 1.2 Date/Time Procedure Status Source Growth 08/04/16 08:12 Aerobic Blood Culture Received Blood Peripheral Pending 08/04/16 08:12 Anaerobic Blood Culture Received Blood Peripheral Pending Result Diagram: 08/04/16 0800 08/04/16 0800 Imaging CXR No acute infiltrate Septic Shock Reassessment Heart: Other (tachycardic) Lungs: Clear Skin: Dry Peripheral Pulses: Weak Right Radial Weak Left Radial Assessment and Plan Assessment and Plan NEURO: Acute encephalopathy IV drug use (history of using methamphetamine, Dilaudid) History of drug withdrawal -Ativan 1-2 mg every 4 hours when necessary for anxiety, and withdrawal -Treat acute pain with Dilaudid gradually wean off opiates -Encephalopathy seems to be secondary to severe sepsis -UDS positive for cocaine, opiates, benzos (opiates and benzos could be given in hospital) RESP: History of septic pulmonary emboli in the past -Nasal cannula oxygen -DuoNeb every 4 hours when necessary, aggressive pulmonary toilet -CT chest to evaluate for lung abscess septic emboli CV: Septic shock Probable infective endocarditis -Normal saline IV fluids 5 L bolus and 150 ml per hour -2d echo did not show any vegetation -Levophed to keep map above 65 GI: Elevated bilirubin Hepatitis C -CT abdomen pelvis shows no evidence of infection -Check gallbladder ultrasound due to elevated bilirubin : Acute kidney failure Severe dehydration -Monitor renal function closely. Tyson catheter. -IV fluid is as above ID: Septic shock Probable infective endocarditis Leukocytosis bandemia History of HIV Hep C -Renally dosed IV vancomycin and Zosyn. Consult infectious diseases -Follow-up on, blood urine and sputum cultures -Continue Truvada -Checking CD4, viral load-defer to ID HEME: Mild thrombocytopenia due to sepsis -Monitor CBC, CMP, coags ENDO: -Electrolyte replacement per protocol PROPH: -Bilateral lower extremity SCDs. Avoid chemical DVT prophylaxis due to thrombocytopenia. IV protonix LINES: -RIJ central line CC time 83 min Code Status Full Discussed Condition With Dr. Contreras, patient and bedside RN Saad Valle MD August 04, 2016 10:02
[2016-08-04 10:23] LABS: BACTERIA, URINE MOD /hpf; BLOOD, URINE MOD (NEG); COMMENT (UR) CULTURE INDICATED; CULTURE IF INDICATED CULTURE INDICATED; GLUCOSE,URINE NEG (NEG); KETONE, URINE NEG (NEG); MUCUS URINE FEW /lpf (OCC); SQUAMOUS EPITHELIAL CELL URINE 3 /hpf (0-5); URINE COLOR YELLOW (YELLW/STRAW)
--- NOTE | 2016-08-04 10:25 | EC ---
Study Study Date:08/04/2016 STUDY CONCLUSIONS SUMMARY - Left ventricle: The cavity size was normal. Wall thickness was normal. Systolic function was normal. The estimated ejection fraction was in the range of 55% to 60%. Wall motion was normal; there were no regional wall motion abnormalities. - Aortic valve: Valve area: 1.17cm^2 (Vmax). - Tricuspid valve: Mild regurgitation. - Pulmonary arteries: PA peak pressure: 35mm Hg (S). Impressions: No evidence of endocarditis. If LV function is below 40, please consider prescribing an ACEI or ARB or document rationale for non-use. PROCEDURE DATA STUDY STATUS: Elective. Procedure: Transthoracic echocardiography. Image quality was good. Scanning was performed from the parasternal, apical, and subcostal acoustic windows. Study completion: The patient tolerated the procedure well. Transthoracic echocardiography. M-mode, complete 2D, complete spectral Doppler, and color Doppler. Patient status: Inpatient. CARDIAC ANATOMY LEFT VENTRICLE: The cavity size was normal. Wall thickness was normal. Systolic function was normal. The estimated ejection fraction was in the range of 55% to 60%. Wall motion was normal; there were no regional wall motion abnormalities. AORTIC VALVE: Trileaflet; normal thickness leaflets. Doppler: Transvalvular velocity was within the normal range. There was no stenosis. No regurgitation. Valve area: 1.17cm^2 (Vmax). AORTA: Aortic root: The aortic root was normal in size. MITRAL VALVE: Structurally normal valve. Doppler: Transvalvular velocity was within the normal range. There was no evidence for stenosis. No regurgitation. Peak gradient: 7mm Hg (D). LEFT ATRIUM: The atrium was normal in size. RIGHT VENTRICLE: The cavity size was normal. Wall thickness was normal. PULMONIC VALVE: Doppler: Transvalvular velocity was within the normal range. There was no evidence for stenosis. No regurgitation. TRICUSPID VALVE: Structurally normal valve. Doppler: Transvalvular velocity was within the normal range. Mild regurgitation. PULMONARY ARTERY: The main pulmonary artery was normal-sized. Systolic pressure was within the normal range. RIGHT ATRIUM: The atrium was normal in size. PERICARDIUM: There was no pericardial effusion. SYSTEMIC VEINS: Inferior vena cava: The vessel was normal in size. BASIC MEASUREMENTS ADULT NORMAL Left ventricle LV internal dimension, ED, chordal level, *38.4 mm 43-52 PLAX LV internal dimension, ES, chordal level, 26.6 mm 23-38 PLAX Fractional shortening, chordal level, PLAX 31 % >29 LV posterior wall thickness, ED 8.53 mm IVS/LVPW ratio, ED 1 <1.3 Ventricular septum Septal thickness, ED 8.53 mm Aortic valve Leaflet separation 16 mm 15-26 BASIC MEASUREMENTS ADULT NORMAL Aortic valve Leaflet separation 16 mm 15-26 Aorta Root diameter, ED 25 mm 20-37 Left atrium Anterior-posterior dimension, ES 32 mm 19-40 LA/aortic root ratio 1.28 DOPPLER MEASUREMENTS ADULT NORMAL Main pulmonary artery Pressure, S *35 mm Hg =30 Aortic valve Peak velocity, S 145 cm/s Valve area, Vmax 1.17 cm^2 Mitral valve Peak E-wave velocity 128 cm/s Peak A-wave velocity 112 cm/s Deceleration time *146 ms 150-230 Peak gradient, D 7 mm Hg Peak E/A ratio 1.1 Tricuspid valve Regurgitant peak velocity 209 cm/s Peak RV-RA gradient, S 17 mm Hg Maximal regurgitant velocity 209 cm/s Systemic veins Estimated CVP 10 mm Hg Right ventricle RV pressure, S *39 mm Hg <30 Pulmonic valve Peak velocity, S 105 cm/s LEGEND: Mean values are shown as u=mean value. Asterisk (*) schrader values outside specified normal range. Prepared and signed by Tray Davidson [id number]
[2016-08-04 10:29] LABS: NITRITE,URINE POS (NEG)
[2016-08-04] MEDS: PANTOPRAZOLE SODIUM 40 MG VIAL IV SCH (10:34)
[2016-08-04 10:42] LABS: AMPHETAMINE, URINE NEG (NEG); BARBITURATES, URINE NEG (NEG); COCAINE, URINE POS (NEG)
[2016-08-04] MEDS ORDERED: VANCOMYCIN INJ 1,250 MG in SODIUM CHLOR 0.9% 250 ML INJ 250 ML IV ONE (11:00)
[2016-08-04] MEDS: LORazepam 2 MG/ML VIAL IV PUSH PRN ×4 (11:10→22:12)
--- NOTE | 2016-08-04 11:38 | PD.PROCEDR ---
Central Line Procedure REASON FOR PROCEDURE Central venous access PROCEDURE PERFORMED Central line placement: RIJ US guided central line CONSENT Informed consent for procedure was obtained and time out performed. The risks and benefits of the procedure were discussed to include but limited to bleeding , clot formation, infection, and even . ANESTHESIA Local injection of 1% Lidocaine DESCRIPTION OF THE PROCEDURE The patient was placed in supine, mild Trendelenburg position. The area was exposed and cleansed with ChloraPrep, times two. Large sterile drape was used to cover the patient, with the site exposed, under sterile conditions including cap, face mask, sterile gown, and sterile gloves. On single attempt, the introducer needle was inserted with negative pressure in syringe and venous flash was obtained. The guide wire was then advanced without any restriction and the needle was removed. The dilator was used without any complications. Using Seldinger technique the 20 CM catheter was advanced over the guide wire to a depth of 16 centimeters. The guide wire was removed. All ports were aspirated with dark venous blood return and flushed easily with sterile saline. All ports were capped. Antibiotic disc was placed around central line at puncture site. The central line was secured to the skin with two interrupted 2.0 silk sutures. The area was bandaged with sterile see-through central line bandage. RADIOLOGICAL DATA Ultrasound guidance was used to locate RIJ. Doppler/color flow was used to confirm venous flow. COMPLICATIONS: No apparent complications ESTIMATED BLOOD LOSS: Less than 1 cc. Saad Valle MD August 04, 2016 11:38
[2016-08-04] MEDS: HYDROmorphone HCL PF 2 MG/ML VIAL IV PUSH PRN ×3 (11:39→22:12)
[2016-08-04] MEDS: SODIUM CHLOR 0.9% 1000 ML INJ 1,000 ML IV SCH ×3 (12:09→21:53)
--- NOTE | 2016-08-04 12:48 | RADRPT ---
EXAM DATE/TIME: 08/04/2016 11:43 [facility] COMPARISON: CHEST SINGLE AP, August 04, 2016, 7:52. INDICATIONS : Central line placement MEDICAL HISTORY : None. SURGICAL HISTORY : None. ENCOUNTER: Subsequent ACUITY: 1 day PAIN SCORE: Non-responsive. LOCATION: Bilateral chest FINDINGS: A single view of the chest demonstrates the lungs to be symmetrically aerated without evidence of mas s, infiltrate or effusion. The cardiomediastinal contours are unremarkable. Osseous structures are intact. Interval placement of a right IJ central venous catheter with the tip projecting over the low tral venous system. No pneumothorax. CONCLUSION: 1. Interval placement of a right IJ central venous catheter with tip projecting over the central veno us system. No pneumothorax. 2. Lungs remain clear. Augie Angel MD on August 04, 2016 at 12:45 Board Certified Radiologist. This report was verified electronically.
[2016-08-04] MEDS ORDERED: diphenhydrAMINE HCL 50 MG/ML VIAL ONE (13:24)
[2016-08-04] MEDS ORDERED: diphenhydrAMINE HCL 50 MG/ML VIAL IV PUSH PRN (13:30)
--- NOTE | 2016-08-04 13:32 | RADRPT ---
EXAM DATE/TIME: 08/04/2016 13:01 [facility] COMPARISON: No previous studies available for comparison. INDICATIONS : Productive cough, abdominal pain with diarrhea RADIATION DOSE: 9.99 CTDIvol (mGy) ; Combined studies - Thorax/Abdomen/Pelvis MEDICAL HISTORY : HIV. Hepatitis C. Hernia repair SURGICAL HISTORY : None. ENCOUNTER: Initial ACUITY: 3 days PAIN SCALE: 5/10 LOCATION: Chest TECHNIQUE: Volumetric scanning of the chest was performed. Using automated exposure control and adjustment of t he mA and/or kV according to patient size, radiation dose was kept as low as reasonably achievable to obtain optimal diagnostic quality images. FINDINGS: Minimal bibasilar parenchymal changes are noted worse on the right than the left without significant consolidation. There is no significant pleural effusion. Very minimal nonspecific mediastinal adeno jose is present. Portion of liver and spleen identified are free of focal defects. CONCLUSION: Minimal bibasilar parenchymal changes, predominantly peribronchial thickening without pleural effusio n, pneumothorax or alveolar consolidation. Truong Holly MD FACR on August 04, 2016 at 13:27 Board Certified Radiologist. This report was verified electronically.
--- NOTE | 2016-08-04 13:39 | RADRPT ---
EXAM DATE/TIME: 08/04/2016 13:01 [facility] COMPARISON: No previous studies available for comparison. INDICATIONS : Productive cough with abdoninal pain and diarrhea ORAL CONTRAST: No oral contrast ingested. RADIATION DOSE: 9.99 CTDIvol (mGy) ; Combined studies - Thorax/Abdomen/Pelvis MEDICAL HISTORY : HIV. Hepatitis C. Hernia repair SURGICAL HISTORY : None. ENCOUNTER: Initial ACUITY: 3 days PAIN SCALE: 5/10 LOCATION: Abdominal pain TECHNIQUE: Volumetric scanning of the abdomen and pelvis was performed. Using automated exposure control and ad justment of the mA and/or kV according to patient size, radiation dose was kept as low as reasonably achievable to obtain optimal diagnostic quality images. FINDINGS: Lung bases are clear. The liver is free of focal defects. Spleen is mildly prominent. Pancreas, ad renals and kidneys are unremarkable. There is no free fluid or free air. I did get a reasonable look at the colon. I do not see evidence for colitis. There is scattered air fluid levels in the colon which is mostly decompressed. Bladder is decompressed by a Tyson. Review of bone windows reveals scoliosis otherwise negative. CONCLUSION: I do not see colitis or other etiology for patient's abdominal pain. Truong Holly MD FACR on August 04, 2016 at 13:28 Board Certified Radiologist. This report was verified electronically.
[2016-08-04] MEDS: PIPERACIL-TAZO 2.25 GM PREMIX 50 ML IV SCH ×2 (14:33→22:12)
--- NOTE | 2016-08-04 17:03 | RADRPT ---
EXAM DATE/TIME: 08/04/2016 16:18 [facility] COMPARISON: No previous studies available for comparison. INDICATIONS : Left wrist pain. MEDICAL HISTORY : Smoker. SURGICAL HISTORY : None. ENCOUNTER: Initial ACUITY: 1 day PAIN SCORE: Non-responsive. LOCATION: Left wrist. FINDINGS: Two view examination of the left wrist demonstrates no soft tissue swelling, dislocation, or fracture . The joint spaces are maintained. Bony mineralization is normal. CONCLUSION: 1. Negative examination of the wrist. Jw Alvarez MD on August 04, 2016 at 17:01 Board Certified Radiologist. This report was verified electronically.
--- NOTE | 2016-08-04 18:12 | RADRPT ---
EXAM DATE/TIME: 08/04/2016 15:29 [facility] COMPARISON: CT ABDOMEN & PELVIS W/O CONTRAST, August 04, 2016, 13:01. INDICATIONS : Right upper quadrant pain. MEDICAL HISTORY : Migraines. Pneumonia. UTI. Liver disease. ADHD. PTSD. Bipolar disorder. Substance use. MRSA. SURGICAL HISTORY : Tonsillectomy. Hernia repair. Bilateral knee surgery. Left great toe fracture and repair. Left ar m. ENCOUNTER: Initial ACUITY: 1 day PAIN SCORE: 3/10 LOCATION: Right upper quadrant MEASUREMENTS: LIVER: 18.5 cm length COMMON DUCT: 5 mm RIGHT KIDNEY: 13.3 x 5.7 x 4.5 cm FINDINGS: LIVER: Normal echotexture without focal lesion or ductal dilatation. There is normal flow velocity and direc tion in the main portal vein. COMMON DUCT: No intraluminal mass or stone visualized. GALLBLADDER: Mild wall thickness, measuring about 4 lm are seen. No sludge or stones demonstrated. No pericholecys tic fluid. PANCREAS: The visualized portions are within normal limits. RIGHT KIDNEY: No evidence of hydronephrosis, stone, or mass. CONCLUSION: Mild, nonspecific wall thickening of the gallbladder. Negative sonographic Mullins's sign. Mildly enla rged liver. The rest of the right upper quadrant ultrasound is normal. Leonard Colvin MD on August 04, 2016 at 18:09 Board Certified Radiologist. This report was verified electronically.
--- NOTE | 2016-08-04 20:56 | EKG ---
Date Performed: 08/04/2016 Time Performed: 08:29:03 PTAGE: 21 years EKG: SINUS TACHYCARDIA WITH SHORT MO INTERVAL POSSIBLE RIGHT VENTRICULAR CONDUCTION DELAY NONSPE CIFIC T-WAVE ABNORMALITY ABNORMAL RHYTHM ECG PREVIOUS TRACING : 09/01/2015 09.44 Compared to prior tracing no significant change DOCTOR: Trevor Simmons Interpretating Date/Time 08/04/2016 20:54:31
[2016-08-04] MEDS: SODIUM CHLORIDE 0.9% FLUSH 10 ML FLUSH IV FLUSH SCH (22:13)
--- NOTE | 2016-08-04 22:24 | PD.ID.CON ---
History of Present Illness Service ID Consult Requested By Dr Valle Reason for Consult sepsis Primary Care Physician No Primary Care Physician Diagnoses: History of Present Illness Patient is a 21-year-old female with past medical history significant for previous MRSA endocarditis in 2015 (clinical diagnosis, TTE negative), active IV drug use, HIV disease (apparently not very compliant but is on Truvada/ Tivicay Rx), hepatitis C,presented yday to the emergency department with complaints of generalized pain all over the body, \ over the last 3 days. She is very poor historian, moaning and asking for pain medx and crying . History was obtained from the chart She has no fevers. She presented with leukocytosis of 31 K and bandemia of 36% She co neck pain and t severe left-sided pleuritic chest pain and abdominal pain , and also cough with yellow sputum. Apparently had been off her HIV meds for a weeks. It was mentioned that her most recent viral load was undetectable and CD4 count was high (no details). Pt had MRSA endocarditis in the past. Her howe showed negative CXR, negative CT abd/pel and Minimal bibasilar parenchymal changes on chest CT Blood and urine clx P , UA abnormal with pyuria Review of Systems ROS Limitations: Uncooperative, Poor Historian Past Family Social History Allergies: Coded Allergies: Buspar (Verified Adverse Reaction, Severe, Irritability/Anxiety, 08/04/16) *MDRO Multi-Drug Resistant Organism (Verified Adverse Reaction, Unknown, ) MRSA (wrist wound) 11/2014; MRSA (blood & arm-08/2015)&(hand-01/21/16) MRSA PCR screen POSITIVE-08/04/16 Past Medical History ADHD Anxiety and depression Polysubstance abuse History of previous medication overdose HIV Hep C Hx of Pulmonary septic emboli 2016 Left arm abscess s/p I&D on 08/20/2015. Infective endocarditis MRSA (Clinical diagnosis, TTE negative) Past Surgical History Tonsillectomy Umbilical vein repair secondary to hemorrhage as an Active Ordered Medications Medications where reviewed in EMR Antibiotics Include: zosyn vancomycin Family History unknown Social History Polysubstance abuse, tobacco use 1PPD, occasional alcohol use, IV amphetamine use, Xanax abuse. (Denies opiate use, but previous H&P notes opiate abuse) Physical Exam Vital Signs Vital Signs Date Time Temp Pulse Resp B/P Pulse Ox O2 Delivery O2 Flow Rate FiO2 5/19/17 16:00 99.0 76 21 113/56 99 08/04/16 15:45 20 08/04/16 15:00 104 08/04/16 12:00 99.2 97 18 91/52 99 08/04/16 11:00 102 08/04/16 09:45 99.1 91 20 83/40 99 08/04/16 09:12 101 19 77/39 100 Nasal Cannula 2 08/04/16 08:40 96 23 85/48 100 Nasal Cannula 2 08/04/16 08:04 98 21 74/39 100 Room Air 08/04/16 07:28 111 16 98/50 99 Room Air 08/04/16 07:20 98.6 128 18 101/56 100 Physical Exam CONSTITUTIONAL/GENERAL: This is an adequately nourished patient, in apparent distress. TUBES/LINES/DRAINS: SKIN: No jaundice, rashes, or lesions. \ Skin temperature appropriate. Not diaphoretic. HEAD: Atraumatic. Normocephalic. EYES: Pupils equal and round and reactive. Extraocular motions intact. No scleral icterus. No injection or drainage. Fundi not examined. ENT: Hearing grossly normal. Nose without bleeding or purulent drainage. Throat without visible erythema, exudates, masses, or lesions. NECK: Trachea midline. Supple, nontender. No palpable thyroid enlargement or nodularity. CARDIOVASCULAR: Regular tachycardia without murmurs, gallops, or rubs. No JVD. Peripheral pulses symmetric. RESPIRATORY/CHEST: Symmetric, unlabored respirations. Clear to auscultation. Breath sounds equal bilaterally. No wheezes, rales, or rhonchi. GASTROINTESTINAL: Abdomen soft, non-tender, nondistended. No hepato-splenomegaly , or palpable masses. No guarding. Bowel sounds present. GENITOURINARY: Without palpable bladder distension. Tyson catheter in place with clear yellow urine MUSCULOSKELETAL: Extremities without clubbing, cyanosis, or edema. No joint tenderness or effusion noted. No calf tenderness. No mottling or clubbing. LYMPHATICS: No palpable cervical or supraclavicular adenopathy. NEUROLOGICAL: Awake and alert. Motor and sensory grossly within normal limits. Follows commands. Speech normal. Moves all extremities. PSYCHIATRIC: Tearful, non coopeative yeling for pain medx Laboratory Laboratory Tests Test 08/04/16 08/04/16 08/04/16 08:00 08:12 09:30 White Blood Count 31.2 Red Blood Count 4.13 Hemoglobin 12.5 Hematocrit 35.1 Mean Corpuscular Volume 85.0 Mean Corpuscular Hemoglobin 30.2 Mean Corpuscular Hemoglobin 35.5 Concent Red Cell Distribution Width 12.9 Platelet Count 87 Mean Platelet Volume 10.5 Neutrophils (%) (Auto) 83.3 Lymphocytes (%) (Auto) 8.3 Monocytes (%) (Auto) 8.2 Eosinophils (%) (Auto) 0.1 Basophils (%) (Auto) 0.1 Neutrophils # (Auto) 26.0 Lymphocytes # (Auto) 2.6 Monocytes # (Auto) 2.6 Eosinophils # (Auto) 0.0 Basophils # (Auto) 0.0 CBC Comment AUTO DIFF Differential Total Cells 100 Counted Neutrophils % (Manual) 45 Band Neutrophils % 36 Lymphocytes % 10 Monocytes % 6 Neutrophils # (Manual) 26.2 Metamyelocytes 3 Differential Comment FINAL DIFF MANUAL Toxic Vacuolation PRESENT Dohle Bodies PRESENT Platelet Estimate LOW Platelet Morphology Comment ENLARGED Sodium Level 128 Potassium Level 3.6 Chloride Level 93 Carbon Dioxide Level 20.7 Anion Gap 14 Blood Urea Nitrogen 37 Creatinine 4.03 Estimat Glomerular Filtration 14 Rate Random Glucose 61 Calcium Level 7.4 Protein Corrected Calcium 7.3 Total Bilirubin 4.4 Aspartate Amino Transf 69 (AST/SGOT) Alanine Aminotransferase 45 (ALT/SGPT) Alkaline Phosphatase 134 Total Protein 7.5 Albumin 3.5 Lipase 141 Lactic Acid Level 1.2 Urine Color YELLOW Urine Turbidity HAZY Urine pH 6.0 Urine Specific [place] 1.008 Urine Protein 30 Urine Glucose (UA) NEG Urine Ketones NEG Urine Occult Blood MOD Urine Nitrite POS Urine Bilirubin NEG Urine Urobilinogen LESS THAN 2.0 Urine Leukocyte Esterase MOD Urine RBC 3 Urine WBC 44 Urine Squamous Epithelial 3 Cells Urine Amorphous Sediment FEW Urine Bacteria MOD Urine Mucus FEW Microscopic Urinalysis Comment CULTURE INDICATED Nasal Screen MRSA (PCR) MRSA DETECTED Urine Opiates Screen POS Urine Barbiturates Screen NEG Urine Amphetamines Screen NEG Urine Benzodiazepines Screen POS Urine Cocaine Screen POS Urine Cannabinoids Screen NEG Date/Time Procedure Status Source Growth 08/04/16 09:30 Urine Culture Received Urine Clean Catch Pending 08/04/16 08:12 Aerobic Blood Culture Received Blood Peripheral Pending 08/04/16 08:12 Anaerobic Blood Culture Received Blood Peripheral Pending Result Diagram: 08/04/16 0800 08/04/16 0800 Imaging Last Impressions Chest X-Ray 08/04/16 0749 Signed Impressions: Service Date/Time: Thursday, August 04, 2016 07:52 - CONCLUSION: No acute disease. Truong Holly MD FACR Wrist X-Ray 08/04/16 0000 Signed Impressions: Service Date/Time: Thursday, August 04, 2016 16:18 - CONCLUSION: 1. Negative examination of the wrist. Jw Alvarez MD Gall Bladder Ultrasound 08/04/16 0000 Signed Impressions: Service Date/Time: Thursday, August 04, 2016 15:29 - CONCLUSION: Mild, nonspecific wall thickening of the gallbladder. Negative sonographic Mullins's sign. Mildly enlarged liver. The rest of the right upper quadrant ultrasound is normal. Leonard Colvin MD Chest CT 08/04/16 0000 Signed Impressions: Service Date/Time: Thursday, August 04, 2016 13:01 - CONCLUSION: Minimal bibasilar parenchymal changes, predominantly peribronchial thickening without pleural effusion, pneumothorax or alveolar consolidation. Truong Holly MD FACR Abdomen/Pelvis CT 08/04/16 0000 Signed Impressions: Service Date/Time: Thursday, August 04, 2016 13:01 - CONCLUSION: I do not see colitis or other etiology for patient's abdominal pain. Truong Holly MD FACR Assessment and Plan Assessment and Plan sepsis (leukocytis, hypotesiotn \ IVDU, ro endocarditis - 2 D echo ngative Neck pain x few days - r/o C spine infx ARF - cont current abx - fu bl clx - MRI Cspine non contrasted 2/2 ARF Discussed Condition With RN Cynthia Zuñiga MD August 04, 2016 22:24
[2016-08-05] VITALS (24 sets, daily range): BP systolic 91–118; BP diastolic 45–73; PULSE 103–133; RESP 18–33; TEMP 98.7–99.1; O2SAT 96–100
[2016-08-05] MEDS: PIPERACIL-TAZO 2.25 GM PREMIX 50 ML IV SCH ×3 (02:00→14:21)
[2016-08-05] MEDS: SODIUM CHLOR 0.9% 1000 ML INJ 1,000 ML IV SCH ×4 (02:16→22:57)
[2016-08-05] MEDS: RESP: ALBUTEROL 2.5 MG/IPRATROPIUM 0.5 MG NEB (SCH) INH ×4 (04:00→21:38)
[2016-08-05] MEDS: CHLORHEXIDINE GLUCONATE 2 % 1 PACK (2 CLOTHS) TOP SCH (04:00)
--- NOTE | 2016-08-05 05:54 | RADRPT ---
EXAM DATE/TIME: 08/05/2016 03:57 [facility] COMPARISON: CHEST SINGLE AP, August 04, 2016, 11:43. INDICATIONS : Shortness of breath, possible pulmonary disease. MEDICAL HISTORY : None. SURGICAL HISTORY : None. ENCOUNTER: Subsequent ACUITY: 2 days PAIN SCORE: 0/10 LOCATION: Bilateral chest FINDINGS: A single view of the chest demonstrates right central line in superior vena cava. Minimal basilar ate lectasis. No effusion. CONCLUSION: 1. Right central line in superior vena cava. Minimal basilar atelectasis. Lazarus Burton MD on August 05, 2016 at 5:49 Board Certified Radiologist. This report was verified electronically.
[2016-08-05 05:56] LABS: AUTOMATED NEUTROPHIL # 11.4 TH/MM3 (1.8-7.7); BASOPHIL % 0.2 % (0.0-2.0); EOSINOPHIL % 0.1 % (0.0-4.0); HEMATOCRIT 30.8 % (35.0-46.0); LYMPH % 8.5 % (9.0-44.0); LYMPHOCYTE # 1.2 TH/MM3 (1.0-4.8); MEAN CELL VOLUME 85.5 FL (80.0-100.0); MEAN CORPUSCULAR HEMOGLOBIN 29.9 PG (27.0-34.0); MONO % 8.1 % (0.0-8.0); NEUT % 83.1 % (16.0-70.0); PLATELET COUNT 92 TH/MM3 (150-450); WHITE BLOOD COUNT 13.7 TH/MM3 (4.0-11.0)
[2016-08-05 06:01] LABS: HEMO FLAGS AUTO DIFF
[2016-08-05 06:34] LABS: ALKALINE PHOSPHATASE 173 U/L (45-117); ALT (GPT) 42 U/L (10-53); ANION GAP 11 MEQ/L (5-15); AST (GOT) 71 U/L (15-37); BICARBONATE 21.8 MEQ/L (21.0-32.0); BLOOD UREA NITROGEN 28 MG/DL (7-18); CHLORIDE 104 MEQ/L (98-107); GLOMERULAR FILTRATION RATE 29 ML/MIN (>89); MAGNESIUM 2.1 MG/DL (1.5-2.5); POTASSIUM 3.2 MEQ/L (3.5-5.1); SODIUM (NA) 137 MEQ/L (136-145); TOTAL BILIRUBIN ADULT 3.4 MG/DL (0.2-1.0)
[2016-08-05] MEDS ORDERED: SODIUM CHLOR 0.9% 1000 ML INJ 1,000 ML IV SCH (07:15)
[2016-08-05] MEDS: EMTRICITABINE/TENOFOVIR 200 MG/300 MG TAB PO SCH (07:38)
[2016-08-05] MEDS: HYDROmorphone HCL PF 2 MG/ML VIAL IV PUSH PRN ×4 (07:38→22:49)
[2016-08-05] MEDS: SODIUM CHLORIDE 0.9% FLUSH 10 ML FLUSH IV FLUSH SCH ×2 (07:39→19:49)
[2016-08-05] MEDS: PANTOPRAZOLE SODIUM 40 MG VIAL IV SCH (07:39)
--- NOTE | 2016-08-05 07:47 | HHI.CCPN ---
Subjective Remarks/Hospital Course Patient is a 21-year-old female with past medical history significant for 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 She denies any fevers. She also complains about severe left-sided pleuritic chest pain and abdominal pain, and also cough with yellow sputum. Apparently had been off her HIV meds for 5 days. Patient states that recently viral load was undetectable and CD4 count was high even though she does not know how much. Review of records indicate that patient had MRSA endocarditis in the past. I evaluated the patient in the emergency department. Patient is hypotensive tachycardic in moderate to severe distress due to pain. Patient received 2 L normal saline bolus but remained hypotensive, Levophed had been started and now at 5 mcg/m. Patient was emergently moved to the ICU and I placed a right IJ central line. Additional 3 L normal saline bolus been ordered. WBC 31.2 with 36 % bands. Platelet count is 87, sodium is 128 BUN 37 with creatinine 4 (prev creat normal). Bilirubin is 4.4. Renal failure is acute due to severe sepsis and dehydration. She admits to injecting crystal meth IV to the left wrist, patient has tender swelling to the left wrist region. Otherwise she is a very poor historian and difficult to get history. 08/05: Remains critically ill but improving. Currently on 4 mics per minute of Levophed. Urine output more than 8 L since admission. White count improved to 13.7, creatinine 2.15 Objective Vital Signs Date Time Temp Pulse Resp B/P Pulse Ox O2 Delivery O2 Flow Rate FiO2 08/05/16 04:00 117 23 118/62 08/04/16 20:00 99 08/04/16 16:00 99.0 08/04/16 09:12 Nasal Cannula 2 Intake and Output 08/04/16 08/04/16 08/04/16 07:59 15:59 23:59 Intake Total 5250 ml 1288 ml Output Total 2850 ml 3000 ml Balance 2400 ml -1712 ml Result Diagram: 08/05/16 0430 08/05/16 0430 Imaging CXR No acute infiltrate Objective Remarks GENERAL: Well-developed well-nourished female in moderate distress due to pain. Poor historian SKIN: Warm/dry. HEAD: Atraumatic. Normocephalic. EYES: No scleral icterus. No injection or drainage. ENT: Mucous membranes dry. NECK: Trachea midline. Supple. No meningeal signs.. CARDIOVASCULAR: Tachycardic hypotensive. Grade 2 systolic murmur LSB. Tenderness to palpation L upper chest and shoulder, L neck RESPIRATORY: No accessory muscle use. Clear to auscultation. Breath sounds equal bilaterally. GASTROINTESTINAL: Abdomen soft,epigastric and bilateral LQ tenderness. Well healed horizontal surgical scar below umbilicus MUSCULOSKELETAL:No clubbing. No cyanosis. No edema. Tender swelling L wrist anteriorly. Few purple nodule L posterior thigh NEUROLOGICAL: Awake and sleepy but arousable. No obvious cranial nerve deficits. Motor grossly within normal limits. Normal speech. A/P Assessment and Plan NEURO: Acute encephalopathy IV drug use (history of using methamphetamine, Dilaudid) History of drug withdrawal -Ativan 2 mg every 4 hours when necessary for anxiety, and withdrawal -Treat acute breakthrough pain with Dilaudid gradually wean off opiates. Add [place] -UDS positive for cocaine, opiates, benzos (opiates and benzos could be given in hospital) -Encephalopathy seems to be secondary to severe sepsis RESP: History of septic pulmonary emboli in the past -Nasal cannula oxygen -DuoNeb every 4 hours when necessary, aggressive pulmonary toilet -CT chest no evidence of lung abscess septic emboli CV: Septic shock Probable infective endocarditis -Normal saline IV fluids 5 L bolus on admission and 150 ml per hour. Additional 1L bolus today -2d echo did not show any vegetation -Levophed to keep map above 65, wean to DC GI: Elevated bilirubin Hepatitis C -CT abdomen pelvis shows no evidence of infection-negative -Gallbladder ultrasound due to elevated bilirubin-enlarged liver, negative Mullins sign : Acute kidney failure Severe dehydration -Monitor renal function closely. Tyson catheter. -IV fluid is as above -Creatinine has improved from 4 to 2.15 -UO >8L in 24 hours ID: Septic shock Probable infective endocarditis Leukocytosis bandemia History of HIV Hep C -Renally dosed IV vancomycin and Zosyn. Consulted infectious diseases-Dr. Morfin -Follow-up on, blood urine and sputum cultures -Continue Truvada -Checking CD4, viral load-defer to ID -Check MRI of the C-spine and MRI of the left wrist MSK: L wrist swelling -MRI L wrist and C spine to rule out infection, abscess HEME: Mild thrombocytopenia due to sepsis -Monitor CBC, CMP, coags ENDO: -Electrolyte replacement per protocol PROPH: -Bilateral lower extremity SCDs. Avoid chemical DVT prophylaxis due to thrombocytopenia. IV protonix LINES: -RIJ central line CC time 37 min Patient remains critically ill with severe sepsis probable endocarditis and septic shock. Renal failure improving Saad Valle MD August 05, 2016 07:47
[2016-08-05] MEDS ORDERED: NON-FORMULARY DRUG (Emtricitabine-Tenofovir Disoproxil Fumarate (Truvada) 1 TAB) PO SCH (09:00)
[2016-08-05 09:22] LABS: BANDS 11 % (0-6); NEUTROPHIL # MANUAL DIFF 10.8 TH/MM3 (1.8-7.7); PLATELET ESTIMATE SMEAR LOW (NORMAL); PLATELET MORPHOLOGY NORMAL (NORMAL); POLYS (SEG NEUTROPHILS) 68 % (16-70); SCAN/DIFF FINAL DIFF MANUAL; WBC DIFF SAMPLE 100
[2016-08-05] MEDS: LORazepam 2 MG/ML VIAL IV PUSH PRN (10:39)
--- NOTE | 2016-08-05 12:27 | RADRPT ---
EXAM DATE/TIME: 08/05/2016 10:59 [facility] COMPARISON: No previous studies available for comparison. INDICATIONS : Abscess. MEDICAL HISTORY : Hepatitis C. HIV. Endocartitis. SURGICAL HISTORY : Tonsillectomy. ENCOUNTER: Initial ACUITY: 1 day PAIN SCORE: 6/10 LOCATION: Paraspinal TECHNIQUE: Multiplanar, multisequence MRI examination of the cervical spine was performed. FINDINGS: VERTEBRAE: Central hyperintensity in the C7 vertebral body on the T2-weighted images demonstrates mild hyperinte nsity on T1-weighted images and likely represents an incidental hemangioma. Bone marrow signal otherw ise within normal limits. ALIGNMENT: No evidence of subluxation. CORD: Normal configuration and signal. POST FOSSA: The cerebellar tonsils are normal in position. C2-C3: The thecal sac has a normal configuration. There is no evidence of disc herniation or spinal canal s tenosis. The neural foramina are patent bilaterally. C3-C4: The thecal sac has a normal configuration. There is no evidence of disc herniation or spinal canal s tenosis. The neural foramina are patent bilaterally. C4-C5: The thecal sac has a normal configuration. There is no evidence of disc herniation or spinal canal s tenosis. The neural foramina are patent bilaterally. C5-C6: The thecal sac has a normal configuration. There is no evidence of disc herniation or spinal canal s tenosis. The neural foramina are patent bilaterally. C6-C7: The thecal sac has a normal configuration. There is no evidence of disc herniation or spinal canal s tenosis. The neural foramina are patent bilaterally. C7-T1: The thecal sac has a normal configuration. There is no evidence of disc herniation or spinal canal s tenosis. The neural foramina are patent bilaterally. CONCLUSION: Cervical MRI within normal limits. Sidney Campuzano MD on August 05, 2016 at 12:24 Board Certified Radiologist. This report was verified electronically.
--- NOTE | 2016-08-05 13:31 | RADRPT ---
EXAM DATE/TIME: 08/05/2016 11:25 [place] COMPARISON: No previous studies available for comparison. INDICATIONS : Abscess. MEDICAL HISTORY : HIV. Hepatitis C. Endocarditis. SURGICAL HISTORY : Tonsillectomy. ENCOUNTER: Initial ACUITY: 1 day PAIN SCORE: 6/10 LOCATION: Left wrist TECHNIQUE: Multiplanar multisequence MRI examination of the wrist was performed without contrast. FINDINGS: MRI examination was performed for evaluation of possible abscess. There is moderate superficial soft tissue edema at the dorsal and volar aspects of the wrist. No rounded organized fluid collections guy ntified. No evidence of osteomyelitis. Minimal extensor tenosynovitis. All of the visualized tendons are intact. Triangular fibrocartilage complex and intrinsic ligaments are not rigorously evaluated on this study. Small osteophytes are seen at the scaphoid trapezium trapezoid joint. Median nerve and ulnar nerve u nremarkable. CONCLUSION: Superficial soft tissue edema and minimal extensor tenosynovitis. No evidence of abscess or osteomyel itis. Sidney Campuzano MD on August 05, 2016 at 13:26 Board Certified Radiologist. This report was verified electronically.
[2016-08-05] MEDS ORDERED: VANCOMYCIN 1,000 MG/NS 250 ML IV ONE ×2 (14:00)
--- NOTE | 2016-08-05 15:40 | MB ---
cc: BRUNO TONY MD DATE OF CONSULTATION 08/05/16 REASON FOR CONSULTATION Evaluation for SIENA. HISTORY OF PRESENT ILLNESS Ms. 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 She does continue with active drug use, HIV, Hep C and presented with generalized body pain. The patient subsequently was found to be septic. Her transthoracic echo was negative for endocarditis and cardiology was requested to evaluate her for a SIENA. The patient is essentially a poor historian and is fairly lethargic at this point. The history is per the records. ALLERGIES BUSPAR. PAST MEDICAL HISTORY Significant for anxiety, depression, polysubstance abuse, HIV, Hep C, septic pulmonary emboli, left arm abscess and infective endocarditis. CURRENT MEDICATIONS Per the record. FAMILY HISTORY Unknown. SOCIAL HISTORY Positive for polysubstance abuse. REVIEW OF SYSTEMS The review of systems unable. PHYSICAL EXAMINATION VITAL SIGNS: On physical examination vital signs are 113, 18, 111/60. GENERAL: In general she is a well-appearing female who is lethargic. NECK: Her neck is free from JVD. LUNGS: The lungs are bilaterally clear to auscultation. CARDIOVASCULAR: On examination she has a normal S1-S2. I did not appreciate any murmurs, rubs or gallops. ABDOMEN: The abdomen is soft. EXTREMITIES: The extremities are free from edema. CARDIOLOGY STUDIES Echocardiogram from 08/04/16 does show EF of 55%. It was unremarkable for any endocarditis. EVALUATION FOR SIENA The patient does carry a clinical diagnosed endocarditis from last year. She has had recurrent IV drug use and is now again septic. The patient does seem like an appropriate candidate. I not able to assess her oropharynx at this time secondary to noncompliance. She is also at this point too lethargic to give any consent. On further review of her labs shows that her platelet count is at 92 which would increase her chances of any bleeding complications. Additionally, she is fairly anemic and her electrolytes are off in addition to her renal insufficiency. Once the patient gets medically stabilized and assuming she is alert enough to give consent I would consider SIENA. At this time it is relatively contraindicated given the comorbid conditions. Thai Boykin/GARTH /1:46 PM /3:27 PM
[2016-08-05] MEDS ORDERED: POTASSIUM CHLORIDE 20 MEQ CONTROLLED RELEASE TAB PO ONE (16:30)
[2016-08-05] MEDS: ACETAMINOPHEN/HYDROcodone 325 MG/7.5 MG TAB PO PRN (17:05)
[2016-08-05] MEDS: OXACILLIN INJ 2 GM in SODIUM CHLORIDE 0.9% INJ 100 ML IV SCH ×2 (18:11→19:48)
--- NOTE | 2016-08-05 18:35 | HHI.IDPN ---
Subjective Subjective Remarks still co pain better clinically off pressors afebrile growing MSSA in blood and urine clx Antibiotics vanco zosyn Allergies: Coded Allergies: Buspar (Verified Adverse Reaction, Severe, Irritability/Anxiety, 08/04/16) *MDRO Multi-Drug Resistant Organism (Verified Adverse Reaction, Unknown, ) MRSA (wrist wound) 11/2014; MRSA (blood & arm-08/2015)&(hand-01/21/16) MRSA PCR screen POSITIVE-08/04/16 Objective . Vital Signs Date Time Temp Pulse Resp B/P Pulse Ox O2 Delivery O2 Flow Rate FiO2 08/05/16 17:00 114 25 99/52 100 08/05/16 16:00 98.7 110 29 91/45 98 08/05/16 15:00 112 28 104/52 98 08/05/16 14:00 109 30 114/73 99 08/05/16 13:11 106 27 109/56 100 08/05/16 13:00 117 24 97 08/05/16 12:00 98.8 110 33 100 08/05/16 10:45 111 18 111/60 08/05/16 10:44 112 26 108/59 08/05/16 10:30 117 23 112/65 08/05/16 10:15 115 23 100/51 08/05/16 10:00 109 28 111/58 08/05/16 09:45 111 28 112/58 08/05/16 09:30 109 28 107/56 96 08/05/16 09:15 112 25 104/61 98 08/05/16 09:00 105 24 100/55 100 08/05/16 08:45 103 25 94/53 98 08/05/16 08:30 107 22 95/50 98 08/05/16 08:15 106 28 97/53 97 08/05/16 08:00 99.1 109 25 104/61 08/05/16 04:00 117 23 118/62 08/05/16 00:00 133 28 107/51 08/04/16 23:00 132 08/04/16 20:00 17 17 93/48 99 08/04/16 08/04/16 08/05/16 15:00 23:00 07:00 Intake Total 5250 ml 1288 ml 905 ml Output Total 2850 ml 3000 ml 2500 ml Balance 2400 ml -1712 ml -1595 ml Intake Oral 120 ml IV Total 5130 ml 1288 ml 905 ml Output Urine Total 2850 ml 3000 ml 2500 ml # Bowel Movements 0 0 . Laboratory Tests Test 08/04/16 08/05/16 08:00 04:30 White Blood Count 31.2 TH/MM3 13.7 TH/MM3 Red Blood Count 4.13 MIL/MM3 3.60 MIL/MM3 Hemoglobin 12.5 GM/DL 10.8 GM/DL Hematocrit 35.1 % 30.8 % Mean Corpuscular Volume 85.0 FL 85.5 FL Mean Corpuscular Hemoglobin 30.2 PG 29.9 PG Mean Corpuscular Hemoglobin 35.5 % 35.0 % Concent Red Cell Distribution Width 12.9 % 13.0 % Platelet Count 87 TH/MM3 92 TH/MM3 Mean Platelet Volume 10.5 FL 10.1 FL Neutrophils (%) (Auto) 83.3 % 83.1 % Lymphocytes (%) (Auto) 8.3 % 8.5 % Monocytes (%) (Auto) 8.2 % 8.1 % Eosinophils (%) (Auto) 0.1 % 0.1 % Basophils (%) (Auto) 0.1 % 0.2 % Neutrophils # (Auto) 26.0 TH/MM3 11.4 TH/MM3 Lymphocytes # (Auto) 2.6 TH/MM3 1.2 TH/MM3 Monocytes # (Auto) 2.6 TH/MM3 1.1 TH/MM3 Eosinophils # (Auto) 0.0 TH/MM3 0.0 TH/MM3 Basophils # (Auto) 0.0 TH/MM3 0.0 TH/MM3 CBC Comment AUTO DIFF AUTO DIFF Differential Total Cells 100 100 Counted Neutrophils % (Manual) 45 % 68 % Band Neutrophils % 36 % 11 % Lymphocytes % 10 % 10 % Monocytes % 6 % 11 % Neutrophils # (Manual) 26.2 TH/MM3 10.8 TH/MM3 Metamyelocytes 3 % Differential Comment FINAL DIFF FINAL DIFF MANUAL MANUAL Toxic Vacuolation PRESENT Dohle Bodies PRESENT Platelet Estimate LOW LOW Platelet Morphology Comment ENLARGED NORMAL Laboratory Tests Test 08/04/16 08/04/16 08/05/16 08:00 08:12 04:30 Sodium Level 128 MEQ/L 137 MEQ/L Potassium Level 3.6 MEQ/L 3.2 MEQ/L Chloride Level 93 MEQ/L 104 MEQ/L Carbon Dioxide Level 20.7 MEQ/L 21.8 MEQ/L Anion Gap 14 MEQ/L 11 MEQ/L Blood Urea Nitrogen 37 MG/DL 28 MG/DL Creatinine 4.03 MG/DL 2.15 MG/DL Estimat Glomerular Filtration 14 ML/MIN 29 ML/MIN Rate Random Glucose 61 MG/DL 65 MG/DL Calcium Level 7.4 MG/DL 8.3 MG/DL Protein Corrected Calcium 7.3 MG/DL Total Bilirubin 4.4 MG/DL 3.4 MG/DL Aspartate Amino Transf 69 U/L 71 U/L (AST/SGOT) Alanine Aminotransferase 45 U/L 42 U/L (ALT/SGPT) Alkaline Phosphatase 134 U/L 173 U/L Total Protein 7.5 GM/DL 6.7 GM/DL Albumin 3.5 GM/DL 3.2 GM/DL Lipase 141 U/L Lactic Acid Level 1.2 mmol/L Magnesium Level 2.1 MG/DL Microbiology Date/Time Procedure Status Source Growth 08/04/16 07:58 Aerobic Blood Culture - Preliminary Resulted Blood Peripheral Staphylococcus Aureus 08/04/16 07:58 Anaerobic Blood Culture - Preliminary Resulted Gram Positive Cocci 08/04/16 08:12 Aerobic Blood Culture - Preliminary Resulted Blood Peripheral Gram Positive Cocci 08/04/16 08:12 Anaerobic Blood Culture - Preliminary Resulted Gram Positive Cocci 08/04/16 09:30 Urine Culture - Preliminary Resulted Urine Clean Catch Staphylococcus Aureus 08/05/16 14:17 Aerobic Blood Culture Received Blood Peripheral Pending 08/05/16 14:17 Anaerobic Blood Culture Received Blood Peripheral Pending 08/05/16 14:21 Aerobic Blood Culture Received Blood Peripheral Pending 08/05/16 14:21 Anaerobic Blood Culture Received Blood Peripheral Pending Imaging Last Impressions Wrist MRI 08/05/16 0000 Signed Impressions: Service Date/Time: Friday, August 05, 2016 11:25 - CONCLUSION: Superficial soft tissue edema and minimal extensor tenosynovitis. No evidence of abscess or osteomyelitis. Sidney Campuzano MD Chest X-Ray 08/05/16 0000 Signed Impressions: Service Date/Time: Friday, August 05, 2016 03:57 - CONCLUSION: 1. Right central line in superior vena cava. Minimal basilar atelectasis. Lazarus Burton MD Cervical Spine MRI 08/05/16 0000 Signed Impressions: Service Date/Time: Friday, August 05, 2016 10:59 - CONCLUSION: Cervical MRI within normal limits. Sidney Campuzano MD Wrist X-Ray 08/04/16 0000 Signed Impressions: Service Date/Time: Thursday, August 04, 2016 16:18 - CONCLUSION: 1. Negative examination of the wrist. Jw Alvarez MD Gall Bladder Ultrasound 08/04/16 0000 Signed Impressions: Service Date/Time: Thursday, August 04, 2016 15:29 - CONCLUSION: Mild, nonspecific wall thickening of the gallbladder. Negative sonographic Mullins's sign. Mildly enlarged liver. The rest of the right upper quadrant ultrasound is normal. Leonard Colvin MD Chest CT 08/04/16 0000 Signed Impressions: Service Date/Time: Thursday, August 04, 2016 13:01 - CONCLUSION: Minimal bibasilar parenchymal changes, predominantly peribronchial thickening without pleural effusion, pneumothorax or alveolar consolidation. Truong Holly MD FACR Abdomen/Pelvis CT 08/04/16 0000 Signed Impressions: Service Date/Time: Thursday, August 04, 2016 13:01 - CONCLUSION: I do not see colitis or other etiology for patient's abdominal pain. Truong Holly MD FACR Physical Exam CONSTITUTIONAL/GENERAL: This is an adequately nourished patient, in apparent distress. TUBES/LINES/DRAINS: SKIN: No jaundice, rashes, hemorragic lesions b/l between toes . \ Skin temperature appropriate. Not diaphoretic. HEAD: Atraumatic. Normocephalic. EYES: Pupils equal and round and reactive. Extraocular motions intact. No scleral icterus. No injection or drainage. Fundi not examined. ENT: Hearing grossly normal. Nose without bleeding or purulent drainage. Throat without visible erythema, exudates, masses, or lesions. NECK: Trachea midline. Supple, nontender CARDIOVASCULAR: Regular tachycardia without murmurs, gallops, or rubs. No JVD. Peripheral pulses symmetric. RESPIRATORY/CHEST: Symmetric, unlabored respirations. Clear to auscultation. Breath sounds equal bilaterally. No wheezes, rales, or rhonchi. GASTROINTESTINAL: Abdomen soft, non-tender, nondistended. No hepato-splenomegaly , or palpable masses. No guarding. Bowel sounds present. GENITOURINARY: Without palpable bladder distension. Tyson catheter in place with clear yellow urine MUSCULOSKELETAL: Extremities without clubbing, cyanosis, or edema. No joint tenderness or effusion noted. No calf tenderness. No mottling or clubbing. LYMPHATICS: No palpable cervical or supraclavicular adenopathy. NEUROLOGICAL: Awake and alert. Motor and sensory grossly within normal limits. Follows commands. Speech normal. Moves all extremities. PSYCHIATRIC: calmer, cooperative Assessment & Plan Remarks sepsis (leukocytis, hypotesiotn \ IVDU, ro endocarditis - 2 D echo ngative SIENA planned Neck pain x few days - - non contrasted MRI wo e/o osteo/diskitis ARF, improving GFR - dc fredis viramontes - start oxacillin - Cynthia Jordan RN, MD August 05, 2016 18:35
[2016-08-06] VITALS (11 sets, daily range): BP systolic 108–136; BP diastolic 51–92; PULSE 66–112; RESP 17–20; TEMP 97–99.2; O2SAT 95–100
[2016-08-06] MEDS: ACETAMINOPHEN/HYDROcodone 325 MG/7.5 MG TAB PO PRN ×3 (00:28→21:38)
[2016-08-06] MEDS: OXACILLIN INJ 2 GM in SODIUM CHLORIDE 0.9% INJ 100 ML IV SCH ×6 (02:46→21:39)
[2016-08-06] MEDS: HYDROmorphone HCL PF 2 MG/ML VIAL IV PUSH PRN ×3 (02:46→12:08)
[2016-08-06] MEDS: CHLORHEXIDINE GLUCONATE 2 % 1 PACK (2 CLOTHS) TOP SCH (02:49)
[2016-08-06] MEDS: SODIUM CHLOR 0.9% 1000 ML INJ 1,000 ML IV SCH ×2 (06:41→13:48)
--- NOTE | 2016-08-06 08:05 | HHI.CCPN ---
Subjective Remarks/Hospital Course DUPLICATE NOTE Objective Vital Signs Date Time Temp Pulse Resp B/P Pulse Ox O2 Delivery O2 Flow Rate FiO2 08/06/16 07:12 18 08/06/16 06:00 101 08/06/16 04:00 99.2 110/54 96 08/04/16 09:12 Nasal Cannula 2 Intake and Output 08/05/16 08/05/16 08/06/16 08:00 16:00 00:00 Intake Total 905 ml 2125 ml 886 ml Output Total 2500 ml 1300 ml 1550 ml Balance -1595 ml 825 ml -664 ml Result Diagram: 08/05/16 0430 08/05/16 0430 Imaging CXR No acute infiltrate Saad Valle MD August 06, 2016 08:05 08/04/16 09:12 Nasal Cannula 2 Intake and Output 08/05/16 08/05/16 08/06/16 08:00 16:00 00:00 Intake Total 905 ml 2125 ml 886 ml Output Total 2500 ml 1300 ml 1550 ml Balance -1595 ml 825 ml -664 ml Result Diagram: 08/05/16 0430 08/05/16 0430 Imaging CXR No acute infiltrate Objective Remarks GENERAL: Well-developed well-nourished female in moderate distress due to pain. Poor historian SKIN: Warm/dry. HEAD: Atraumatic. Normocephalic. EYES: No scleral icterus. No injection or drainage. ENT: Mucous membranes dry. NECK: Trachea midline. Supple. No meningeal signs. Mild posterior neck tenderness CARDIOVASCULAR: Tachycardic. Grade 2 systolic murmur LSB. Tenderness to palpation L upper chest and shoulder, L neck RESPIRATORY: No accessory muscle use. Clear to auscultation. Breath sounds equal bilaterally. GASTROINTESTINAL: Abdomen soft,epigastric and bilateral LQ tenderness. Well healed horizontal surgical scar below umbilicus MUSCULOSKELETAL:No clubbing. No cyanosis. No edema. Tender swelling L wrist anteriorly. Few purple nodule L posterior thigh NEUROLOGICAL: Awake and sleepy but arousable. No cranial nerve deficits. Motor grossly within normal limits. Normal speech. Urinary Catheter: Yes Assessment to: Continue Vascular Central Line Catheter: Yes Assessment to: Continue A/P Assessment and Plan NEURO: Acute encephalopathy IV drug use (history of using methamphetamine, Dilaudid) History of drug withdrawal -Ativan 2 mg every 4 hours when necessary for anxiety, and withdrawal, reduce to 1 mg -Treat acute breakthrough pain with Dilaudid gradually wean off opiates. Added [place] 08/06/16 -UDS positive for cocaine, opiates, benzos (opiates and benzos could be given in hospital) -Encephalopathy seems to be secondary to severe sepsis RESP: History of septic pulmonary emboli in the past -Nasal cannula oxygen -DuoNeb every 4 hours when necessary, aggressive pulmonary toilet -CT chest no evidence of lung abscess septic emboli CV: Septic shock Probable infective endocarditis -Normal saline 150 ml per hour. -2d echo did not show any vegetation. SIENA possibly tomorrow -Off Levophed. GI: Elevated bilirubin Hepatitis C -CT abdomen pelvis shows no evidence of infection-negative -Gallbladder ultrasound due to elevated bilirubin-enlarged liver, negative Mullins sign : Acute kidney failure Severe dehydration -Monitor renal function closely. Tyson catheter. -IV fluid is as above -Creatinine has improved from 4 to 2.15. Today labs pending -UO >4L in 24 hours ID: Septic shock Probable infective endocarditis/MSSA Leukocytosis bandemia History of HIV Hep C -IV vancomycin and Zosyn DC d by Dr. Morfin. Oxacillin started 08/05/16 -Follow-up on, blood urine and sputum cultures -Continue Truvada -CD4, viral load testing-defer to ID -MRI of the C-spine and MRI of the left wrist negative for abscess, osteo MSK: L wrist swelling -MRI L wrist neg infection, abscess HEME: Mild thrombocytopenia due to sepsis -Monitor CBC, CMP, coags ENDO: -Electrolyte replacement per protocol PROPH: -Bilateral lower extremity SCDs. Avoid chemical DVT prophylaxis due to thrombocytopenia, until plt count >90. IV protonix LINES: -RIJ central line Level 3 Patient remains critically ill but improving. [facility] consult to assume care in am. Transfer to Med surg with Tele if remains stable Saad Valle MD August 06, 2016 08:05
[2016-08-06 08:08] LABS: AUTOMATED NEUTROPHIL # 3.8 TH/MM3 (1.8-7.7); BASOPHIL % 0.1 % (0.0-2.0); EOSINOPHIL # 0.1 TH/MM3 (0-0.4); EOSINOPHIL % 2.4 % (0.0-4.0); HEMATOCRIT 26.6 % (35.0-46.0); HEMO FLAGS AUTO DIFF; LYMPH % 18.4 % (9.0-44.0); MEAN CELL VOLUME 85.9 FL (80.0-100.0); MEAN CORPUSCULAR HEMOGLOBIN 30.2 PG (27.0-34.0); MEAN CORPUSCULAR HGB CONC 35.2 % (32.0-36.0); MONO % 7.3 % (0.0-8.0); NEUT % 71.8 % (16.0-70.0); PLATELET COUNT 85 TH/MM3 (150-450); RED CELL DISTRIBUTION WIDTH 12.9 % (11.6-17.2); WHITE BLOOD COUNT 5.3 TH/MM3 (4.0-11.0)
[2016-08-06 08:31] LABS: ALKALINE PHOSPHATASE 250 U/L (45-117); ALT (GPT) 41 U/L (10-53); ANION GAP 7 MEQ/L (5-15); AST (GOT) 57 U/L (15-37); BICARBONATE 25.9 MEQ/L (21.0-32.0); BLOOD UREA NITROGEN 14 MG/DL (7-18); CHLORIDE 110 MEQ/L (98-107); GLOMERULAR FILTRATION RATE 58 ML/MIN (>89); MAGNESIUM 1.8 MG/DL (1.5-2.5); POTASSIUM 3.4 MEQ/L (3.5-5.1); SODIUM (NA) 143 MEQ/L (136-145); TOTAL BILIRUBIN ADULT 1.4 MG/DL (0.2-1.0)
[2016-08-06 08:50] LABS: PLATELET ESTIMATE SMEAR LOW (NORMAL); PLATELET MORPHOLOGY NORMAL (NORMAL); SCAN/DIFF AUTO DIFF CONFIRMED
[2016-08-06] MEDS: SODIUM CHLORIDE 0.9% FLUSH 10 ML FLUSH IV FLUSH SCH ×2 (09:00→21:00)
[2016-08-06] MEDS: RESP: ALBUTEROL 2.5 MG/IPRATROPIUM 0.5 MG NEB (SCH) INH (09:43)
[2016-08-06] MEDS: LORazepam 2 MG/ML VIAL IV PUSH PRN (10:06)
[2016-08-06] MEDS: PANTOPRAZOLE SODIUM 40 MG VIAL IV SCH (10:06)
[2016-08-06] MEDS: EMTRICITABINE/TENOFOVIR 200 MG/300 MG TAB PO SCH (10:07)
--- NOTE | 2016-08-06 11:00 | PD.TRANSFR ---
Transfer Summary Admission Date August 04, 2016 at 08:54 Admitting Diagnosis Sepsis, hypotension, HIV, Hep C Diagnoses: (1) Septic shock Diagnosis: Principal (2) Acute kidney failure Diagnosis: Principal (3) Acute encephalopathy Diagnosis: Principal (4) Probable infective endocarditis Diagnosis: Principal (5) Hyponatremia Diagnosis: Principal (6) MSSA bacteremia Diagnosis: Principal (7) Thrombocytopenia Diagnosis: Principal (8) Elevated liver enzymes Diagnosis: Principal (9) Hepatitis C Diagnosis: Secondary (10) HIV (human immunodeficiency virus infection) Diagnosis: Secondary (11) Polysubstance dependence Diagnosis: Secondary (12) IVDU (intravenous drug user) Diagnosis: Secondary Transfer Summary/Subjective Patient is a 21-year-old female with past medical history significant for 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 She denies any fevers. She also complains about severe left-sided pleuritic chest pain and abdominal pain, and also cough with yellow sputum. Apparently had been off her HIV meds for 5 days. Patient states that recently viral load was undetectable and CD4 count was high even though she does not know how much. Review of records indicate that patient had MRSA endocarditis in the past. I evaluated the patient in the emergency department. Patient is hypotensive tachycardic in moderate to severe distress due to pain. Patient received 2 L normal saline bolus but remained hypotensive, Levophed had been started and now at 5 mcg/m. Patient was emergently moved to the ICU and I placed a right IJ central line. Additional 3 L normal saline bolus been ordered. WBC 31.2 with 36 % bands. Platelet count is 87, sodium is 128 BUN 37 with creatinine 4 (prev creat normal). Bilirubin is 4.4. Renal failure is acute due to severe sepsis and dehydration. She admits to injecting crystal meth IV to the left wrist, patient has tender swelling to the left wrist region. Otherwise she is a very poor historian and difficult to get history. 08/05: Remains critically ill but improving. Currently on 4 mics per minute of Levophed. Urine output more than 8 L since admission. White count improved to 13.7, creatinine 2.15 08/06: Clinically improving, UO >4 L. labs pending. ABX narrowed to Oxacillin by ID due to MSSA in blood. SIENA possible tomorrow Objective Vital Signs Date Time Temp Pulse Resp B/P Pulse Ox O2 Delivery O2 Flow Rate FiO2 08/06/16 07:12 18 08/06/16 06:00 101 08/06/16 04:00 99.2 110/54 96 08/04/16 09:12 Nasal Cannula 2 Intake and Output 08/05/16 08/05/16 08/06/16 08:00 16:00 00:00 Intake Total 905 ml 2125 ml 886 ml Output Total 2500 ml 1300 ml 1550 ml Balance -1595 ml 825 ml -664 ml Result Diagram: 08/06/16 0756 08/06/16 0756 Imaging CXR No acute infiltrate Objective Remarks GENERAL: Well-developed well-nourished female in moderate distress due to pain. Poor historian SKIN: Warm/dry. HEAD: Atraumatic. Normocephalic. EYES: No scleral icterus. No injection or drainage. ENT: Mucous membranes dry. NECK: Trachea midline. Supple. No meningeal signs. Mild posterior neck tenderness CARDIOVASCULAR: Tachycardic. Grade 2 systolic murmur LSB. Tenderness to palpation L upper chest and shoulder, L neck RESPIRATORY: No accessory muscle use. Clear to auscultation. Breath sounds equal bilaterally. GASTROINTESTINAL: Abdomen soft,epigastric and bilateral LQ tenderness. Well healed horizontal surgical scar below umbilicus MUSCULOSKELETAL:No clubbing. No cyanosis. No edema. Tender swelling L wrist anteriorly. Few purple nodule L posterior thigh NEUROLOGICAL: Awake and sleepy but arousable. No cranial nerve deficits. Motor grossly within normal limits. Normal speech. A/P Assessment and Plan NEURO: Acute encephalopathy IV drug use (history of using methamphetamine, Dilaudid) History of drug withdrawal -Ativan 2 mg every 4 hours when necessary for anxiety, and withdrawal, DC today -Treat acute breakthrough pain with Dilaudid gradually wean off opiates. Added [place] 08/06/16 -UDS positive for cocaine, opiates, benzos (opiates and benzos could be given in hospital) -Encephalopathy seems to be secondary to severe sepsis RESP: History of septic pulmonary emboli in the past -Nasal cannula oxygen -DuoNeb every 4 hours when necessary, aggressive pulmonary toilet -CT chest no evidence of lung abscess septic emboli CV: Septic shock Probable infective endocarditis -Normal saline 150 ml per hour. -2d echo did not show any vegetation. SIENA possibly tomorrow -Off Levophed. GI: Elevated bilirubin Hepatitis C -CT abdomen pelvis shows no evidence of infection-negative -Gallbladder ultrasound due to elevated bilirubin-enlarged liver, negative Mullins sign : Acute kidney failure Severe dehydration -Monitor renal function closely. Tyson catheter. -IV fluid is as above -Creatinine has improved from 4 to 2.15. Today labs pending -UO >4L in 24 hours ID: Septic shock Probable infective endocarditis/MSSA Leukocytosis bandemia History of HIV Hep C -IV vancomycin and Zosyn DC d by Dr. Morfin. Oxacillin started 08/05/16 -Follow-up on, blood urine and sputum cultures -Continue Truvada -CD4, viral load testing-defer to ID -MRI of the C-spine and MRI of the left wrist negative for abscess, osteo MSK: L wrist swelling -MRI L wrist neg for infection, abscess HEME: Mild thrombocytopenia due to sepsis -Monitor CBC, CMP, coags ENDO: -Electrolyte replacement per protocol PROPH: -Bilateral lower extremity SCDs. Avoid chemical DVT prophylaxis due to thrombocytopenia, until plt count >90. IV protonix LINES: -RIJ central line Level 3 Patient remains critically ill but improving. [facility] consult to assume care in am. Transfer to Med surg with Tele if remains stable Saad Valle MD August 06, 2016 11:00 Saad Valle MD August 06, 2016 11:00
[2016-08-06] MEDS ORDERED: POTASSIUM CHLORIDE 25 MEQ EFFERVESCENT TAB PO ONE (13:00)
[2016-08-07] VITALS (9 sets, daily range): BP systolic 112–153; BP diastolic 69–101; PULSE 81–110; RESP 16–20; TEMP 96.5–98.9; O2SAT 97–100
[2016-08-07] MEDS: OXACILLIN INJ 2 GM in SODIUM CHLORIDE 0.9% INJ 100 ML IV SCH ×6 (03:15→23:25)
[2016-08-07] MEDS: ACETAMINOPHEN/HYDROcodone 325 MG/7.5 MG TAB PO PRN ×4 (03:16→16:12)
[2016-08-07] MEDS: CHLORHEXIDINE GLUCONATE 2 % 1 PACK (2 CLOTHS) TOP SCH (03:39)
[2016-08-07] MEDS: SODIUM CHLOR 0.9% 1000 ML INJ 1,000 ML IV SCH ×2 (04:48→19:06)
--- NOTE | 2016-08-07 08:16 | HHI.PR ---
Subjective Remarks in no acute distress. complaining of left sided pleuritic chest pain. no fever. Objective Vitals Vital Signs Date Time Temp Pulse Resp B/P Pulse Ox O2 Delivery O2 Flow Rate FiO2 08/07/16 06:11 82 08/07/16 05:08 98.2 81 18 131/78 99 08/07/16 04:22 19 08/07/16 00:58 98.4 101 20 115/78 97 08/06/16 21:29 97.0 102 20 136/91 100 08/06/16 18:40 97.9 97 18 130/92 100 08/06/16 16:00 99.0 112 17 110/78 97 08/06/16 16:00 85 08/06/16 14:00 66 08/06/16 12:00 100 08/06/16 12:00 98.9 104 17 109/83 99 08/06/16 10:00 94 I/O 08/06/16 08/06/16 08/06/16 08/07/16 08/07/16 08/07/16 07:00 15:00 23:00 07:00 15:00 23:00 Intake Total 2026 ml 1148 ml Output Total 1280 ml 3500 ml 1250 ml 1000 ml Balance 746 ml -2352 ml -1250 ml -1000 ml Intake Oral 750 ml IV Total 1276 ml 1148 ml Output Urine Total 1280 ml 3500 ml 1250 ml 1000 ml # Voids 1 # Bowel Movements 0 Result Diagram: 08/06/16 0756 08/06/16 0756 Imaging Last Impressions Wrist MRI 08/05/16 0000 Signed Impressions: Service Date/Time: Friday, August 05, 2016 11:25 - CONCLUSION: Superficial soft tissue edema and minimal extensor tenosynovitis. No evidence of abscess or osteomyelitis. Sidney Campuzano MD Chest X-Ray 08/05/16 0000 Signed Impressions: Service Date/Time: Friday, August 05, 2016 03:57 - CONCLUSION: 1. Right central line in superior vena cava. Minimal basilar atelectasis. Lazarus Burton MD Cervical Spine MRI 08/05/16 0000 Signed Impressions: Service Date/Time: Friday, August 05, 2016 10:59 - CONCLUSION: Cervical MRI within normal limits. Sidney Campuzano MD Wrist X-Ray 08/04/16 0000 Signed Impressions: Service Date/Time: Thursday, August 04, 2016 16:18 - CONCLUSION: 1. Negative examination of the wrist. Jw Alvarez MD Gall Bladder Ultrasound 08/04/16 0000 Signed Impressions: Service Date/Time: Thursday, August 04, 2016 15:29 - CONCLUSION: Mild, nonspecific wall thickening of the gallbladder. Negative sonographic Mullins's sign. Mildly enlarged liver. The rest of the right upper quadrant ultrasound is normal. Leonard Colvin MD Chest CT 08/04/16 Signed Impressions: Service Date/Time: Thursday, August 04, 2016 13:01 - CONCLUSION: Minimal bibasilar parenchymal changes, predominantly peribronchial thickening without pleural effusion, pneumothorax or alveolar consolidation. Truong Holly MD FACR Abdomen/Pelvis CT 08/04/16 0000 Signed Impressions: Service Date/Time: Thursday, August 04, 2016 13:01 - CONCLUSION: I do not see colitis or other etiology for patient's abdominal pain. Truong Holly MD FACR Objective Remarks GENERAL: This is a well-nourished, well-developed patient, in no apparent distress. CARDIOVASCULAR: Regular rate and regular rhythm without murmurs, gallops, or rubs. RESPIRATORY: Clear to auscultation. Breath sounds equal bilaterally. No wheezes , rales, or rhonchi. GASTROINTESTINAL: Abdomen soft, non-tender, nondistended. Normal, active bowel sounds MUSCULOSKELETAL: Extremities without clubbing, cyanosis, or edema. NEURO: Alert & Oriented x4 to person, place, time, situation. Moves all ext x4 Procedures central line placement Medications and IVs Current Medications Sodium Chloride 1,000 ml @ 1,000 mls/hr Q1H ONCE IV Last administered on 08:15; Start 08/04/16 at 07:49; Stop 08/04/16 at 08:48; Status DC Sodium Chloride (NS 1000 ml Inj) 800 ml @ 1,000 mls/hr Q48M ONCE IV Last administered on 08/04/16 08:15; Start 08/04/16 at 07:49; Stop 08/04/16 at 08:36 ; Status DC Naloxone HCl 0.4 mg 0.4 mg ONCE ONCE IV PUSH Last administered on 08/04/16 08 :16; Start 08/04/16 at 08:00; Stop 08/04/16 at 08:01; Status DC Norepinephrine Bitartrate 250 ml @ 0 mls/hr TITRATE IV Last administered on 08:56; Start 08/04/16 at 08:30; Stop 08/04/16 at 09:55; Status DC Vancomycin HCl 1000 mg/Sodium Chloride 250 ml @ 250 mls/hr ONCE STAT IV ; Start 08/04/16 at 08:32; Stop 08/04/16 at 09:31; Status Cancel Piperacillin Sod/ Tazobactam Sod 100 ml @ 200 mls/hr ONCE STAT IV Last administered on 08/04/16 08:39; Start 08/04/16 at 08:32; Stop 08/04/16 at 09:01 ; Status DC Sodium Chloride (NS 1000 ml Inj) 1,000 ml @ 70 mls/hr [id number] IV Last administered on 08/06/16 13:48; Start 08/04/16 at 08:33 Sodium Chloride (NS Flush) 2 ml UNSCH PRN IV FLUSH FLUSH AFTER USING IV ACCESS Last administered on 08/04/16 15:07; Start 08/04/16 at 08:45 Sodium Chloride (NS Flush) 2 ml BID IV FLUSH Last administered on 08/06/16 21: 00; Start 08/04/16 at 09:00 Pantoprazole Sodium (Protonix Inj) 40 mg DAILY IV Last administered on 10:06; Start 08/04/16 at 09:00; Stop 08/06/16 at 11:02; Status DC Albuterol/ Ipratropium (Duoneb Neb) 1 ampule Q6HR NEB INH Last administered on 08/06/16 09:43; Start 08/04/16 at 10:00; Stop 08/06/16 at 11:02; Status DC Albuterol/ Ipratropium (Duoneb Neb) 1 ampule Q2HR NEB PRN INH WHEEZING; Start 08/04/16 at 08:45 Enoxaparin Sodium (Lovenox Inj) 40 mg Q24H SQ ; Start 08/04/16 at 08:45; Stop at 08:45; Status DC Miscellaneous Information 1 Q361D XX ; Start 08/04/16 at 08:45 Chlorhexidine Gluconate (Chlorhexidine 2% Cloth) 3 pack Taper DAILY@04 TOP Last administered on 08/06/16 02:49; Start 08/05/16 at 04:00; Stop 08/01/17 at 03:59 Chlorhexidine Gluconate 3 pack 3 pack UNSCH PRN TOP HYGIENIC CARE; Start at 08:45 Piperacillin Sod/ Tazobactam Sod 50 ml @ 100 mls/hr Q6H IV Last administered on 08/05/16 14:21; Start 08/04/16 at 14:00; Stop 08/05/16 at 17:53; Status DC Pharmacy Profile Note (Vancomycin Consult Pharmacy) 0 ml @ 0 mls/hr UNSCH OTHER ; Start 08/04/16 at 08:45; Stop 08/05/16 at 17:53; Status DC Hydromorphone HCl (Dilaudid Pf Inj) 2 mg ONCE ONCE IV PUSH Last administered on 08/04/16 10:05; Start 08/04/16 at 10:00; Stop 08/04/16 at 10:01; Status DC Hydromorphone HCl 2 mg 2 mg Q3H PRN IV PUSH pain 6-10 Last administered on 08/05 07:38; Start 08/04/16 at 10:00; Stop 08/05/16 at 07:42; Status DC Norepinephrine Bitartrate (Levophed-Dextrose Drip) 250 ml @ 0 mls/hr TITRATE IV Last administered on 08/04/16 16:52; Start 08/04/16 at 10:00; Stop 08/06/16 at 11:02; Status DC Terbutaline Sulfate 1 mg 1 mg UNSCH PRN SQ For Extravasation; Start 08/04/16 at 10:00 Sodium Chloride 1,000 ml @ 999 mls/hr BOLUS ONCE IV Last administered on 08/04 10:34; Start 08/04/16 at 10:00; Stop 08/04/16 at 11:00; Status DC Sodium Chloride 1,000 ml @ 999 mls/hr BOLUS ONCE IV Last administered on 08/04 10:00; Start 08/04/16 at 10:00; Stop 08/04/16 at 11:00; Status DC Sodium Chloride 1,000 ml @ 999 mls/hr BOLUS ONCE IV Last administered on 08/04 12:08; Start 08/04/16 at 10:00; Stop 08/04/16 at 11:00; Status DC Vancomycin HCl/ Sodium Chloride (Vancomycin Inj/ NS 250 ml Inj) 262.5 ml @ 250 mls/hr ONCE ONCE IV Last administered on 08/04/16 12:02; Start 08/04/16 at 11 :00; Stop 08/04/16 at 12:02; Status DC Lorazepam (Ativan Inj) 2 mg Q4H PRN IV PUSH for anxiety Last administered on 10:06; Start 08/04/16 at 11:00; Stop 08/06/16 at 11:02; Status DC Diphenhydramine HCl (Benadryl Inj) 50 mg STK-MED ONCE .ROUTE ; Start 08/04/16 at 13:24; Stop 08/04/16 at 13:25; Status DC Diphenhydramine HCl (Benadryl Inj) 50 mg Q6H PRN IV PUSH itching Last administered on 08/04/16 14:33; Start 08/04/16 at 13:30; Stop 08/07/16 at 13:29 Non-Formulary Medication 1 tab DAILY PO ; Start 08/05/16 at 09:00; Stop at 09:00; Status DC Emtricitabine/ Tenofovir 1 tab 1 tab DAILY PO Last administered on 08/06/16 10 :07; Start 08/05/16 at 09:00 Sodium Chloride (NS 1000 ml Inj) 1,000 ml @ 0 mls/hr BOLUS IV ; Start 08/05/16 at 07:15 Hydromorphone HCl (Dilaudid Pf Inj) 2 mg Q4H PRN IV PUSH pain 6-10 Last administered on 08/06/16 12:08; Start 08/05/16 at 11:00; Stop 08/06/16 at 13:03 ; Status DC Acetaminophen/ Hydrocodone Bitart 1 tab 1 tab Q4H PRN PO pain3-5 Last administered on 08/07/16 03:16; Start 08/05/16 at 08:00 Vancomycin HCl/ Sodium Chloride (Vancomycin Inj/ NS 250 ml Inj) 250 ml @ 250 mls/hr ONCE ONCE IV Last administered on 08/05/16 14:21; Start 08/05/16 at 14 :00; Stop 08/05/16 at 17:53; Status DC Potassium Chloride 40 meq 40 meq ONCE ONCE PO Last administered on 08/05/16 17:02; Start 08/05/16 at 16:30; Stop 08/05/16 at 16:31; Status DC Oxacillin Sodium/ Sodium Chloride (Prostaphlin Inj/ NS Inj) 100 ml @ 200 mls/ hr Q4H IV Last administered on 08/07/16 06:26; Start 08/05/16 at 18:00 Potassium Bicarb/ Potassium Chloride (K-Lyte Cl Eff) 50 meq ONCE ONCE PO Last administered on 08/06/16 13:48; Start 08/06/16 at 13:00; Stop 08/06/16 at 13:01; Status DC Hydromorphone HCl (Dilaudid Pf Inj) 1 mg Q4H PRN IV PUSH pain 6-10; Start 08/06 at 15:00; Stop 08/08/16 at 10:59 A/P Assessment and Plan A/P Acute encephalopathy- improved IV drug use (history of using methamphetamine, Dilaudid) History of drug withdrawal -Treat acute breakthrough pain with Dilaudid gradually wean off opiates. Added Bronte 08/06/16 -UDS positive for cocaine, opiates, benzos (opiates and benzos could be given in hospital) -Encephalopathy seems to be secondary to severe sepsis History of septic pulmonary emboli in the past -Nasal cannula oxygen -DuoNeb every 4 hours when necessary, aggressive pulmonary toilet -CT chest no evidence of lung abscess septic emboli Septic shock -resolved Probable infective endocarditis MSSA bacteremia -2d echo did not show any vegetation. SIENA planned for today. -continue Oxacillin -ID following Elevated bilirubin Hepatitis C -CT abdomen pelvis shows no evidence of infection-negative -Gallbladder ultrasound due to elevated bilirubin-enlarged liver, negative Mullins sign Acute kidney failure Severe dehydration -Monitor renal function closely. Dias catheter. -continue IV fluid -will dc dias cath soon. Septic shock Probable infective endocarditis/MSSA Leukocytosis bandemia History of HIV Hep C - Oxacillin started 08/05/16 -Continue Truvada -CD4, viral load testing-defer to ID -MRI of the C-spine and MRI of the left wrist negative for abscess, osteo L wrist swelling -MRI L wrist neg for infection, abscess Mild thrombocytopenia due to sepsis -Monitor CBC, CMP, coags periodically PROPH: -Bilateral lower extremity SCDs. Avoid chemical DVT prophylaxis due to thrombocytopenia. LINES: -RIJ central line Mert Mejía MD August 07, 2016 08:16
[2016-08-07] MEDS: SODIUM CHLORIDE 0.9% FLUSH 10 ML FLUSH IV FLUSH SCH ×2 (09:00→21:00)
--- NOTE | 2016-08-07 09:17 | PD.CARD.PN ---
Subjective Subjective Remarks Pt wants SIENA, crying for pain meds Objective Medications Current Medications Medications (Trade) Dose Ordered Sig/Brianne Route Start Time Stop Time Status Last Admin (NS 1000 ml Inj) 1,000 ml @ 70 mls/hr [id number] IV 08/04/16 08:33 08/06/16 13:48 (NS Flush) 2 ml UNSCH PRN IV FLUSH 08/04/16 08:45 08/04/16 15:07 (NS Flush) 2 ml BID IV FLUSH 08/04/16 09:00 08/06/16 21:00 Miscellaneous Information 1 Q361D XX 08/04/16 08:45 (Chlorhexidine 2% Cloth) 3 pack Taper DAILY@04 TOP 08/05/16 04:00 08/01/17 03:59 08/06/16 02:49 (Chlorhexidine 2% Cloth) 3 pack UNSCH PRN TOP 08/04/16 08:45 (Brethine Inj) 1 mg UNSCH PRN SQ 08/04/16 10:00 (Benadryl Inj) 50 mg Q6H PRN IV PUSH 08/04/16 13:30 08/07/16 13:29 08/04/16 14:33 Emtricitabine/ Tenofovir 1 tab 1 tab DAILY PO 08/05/16 09:00 08/06/16 10:07 (NS 1000 ml Inj) 1,000 ml @ 0 mls/hr BOLUS IV 08/05/16 07:15 Acetaminophen/ Hydrocodone Bitart 1 tab 1 tab Q4H PRN PO 08/05/16 08:00 08/07/16 03:16 (Prostaphlin Inj/ NS Inj) 100 ml @ 200 mls/hr Q4H IV 08/05/16 18:00 08/07/16 06:26 (Dilaudid Pf Inj) 1 mg Q4H PRN IV PUSH 08/06/16 15:00 08/08/16 10:59 Vital Signs / I&O Vital Signs Date Time Temp Pulse Resp B/P Pulse Ox O2 Delivery O2 Flow Rate FiO2 08/07/16 08:32 96.5 110 17 112/69 97 08/07/16 06:11 82 08/07/16 05:08 98.2 81 18 131/78 99 08/07/16 04:22 19 08/07/16 00:58 98.4 101 20 115/78 97 08/06/16 21:29 97.0 102 20 136/91 100 08/06/16 18:40 97.9 97 18 130/92 100 08/06/16 16:00 99.0 112 17 110/78 97 08/06/16 16:00 85 08/06/16 14:00 66 08/06/16 12:00 100 08/06/16 12:00 98.9 104 17 109/83 99 08/06/16 10:00 94 I/O 08/06/16 08/06/16 08/06/16 08/07/16 08/07/16 08/07/16 07:00 15:00 23:00 07:00 15:00 23:00 Intake Total 2026 ml 1148 ml Output Total 1280 ml 3500 ml 1250 ml 1000 ml Balance 746 ml -2352 ml -1250 ml -1000 ml Intake Oral 750 ml IV Total 1276 ml 1148 ml Output Urine Total 1280 ml 3500 ml 1250 ml 1000 ml # Voids 1 # Bowel Movements 0 Physical Exam GENERAL: Well developed, well nourished. No acute distress. HEENT: Jugular venous pressure is normal. CHEST: Lungs clear to auscultation bilaterally. Unlabored respiratory effort. CARDIAC: Regular rate and rhythm without S3, S4, or murmur. ABDOMEN: Soft, nontender, no hepatosplenomegaly. Bowel sounds present. EXTREMITIES: No clubbing, cyanosis, or edema. Assessment and Plan Assessment and Plan hx MRSA endocarditis- risk/ bene for SIENA discussed -pt hamzahable Aaliyah Samuel MD August 07, 2016 09:17
[2016-08-07] MEDS: EMTRICITABINE/TENOFOVIR 200 MG/300 MG TAB PO SCH (11:33)
--- NOTE | 2016-08-07 13:03 | HHI.IDPN ---
Subjective Subjective Remarks no feveer On e of blood clx bottle is positive Antibiotics oxacillin Allergies: Coded Allergies: Buspar (Verified Adverse Reaction, Severe, Irritability/Anxiety, 08/04/16) *MDRO Multi-Drug Resistant Organism (Verified Adverse Reaction, Unknown, ) MRSA (wrist wound) 11/2014; MRSA (blood & arm-08/2015)&(hand-01/21/16) MRSA PCR screen POSITIVE-08/04/16 Objective . Vital Signs Date Time Temp Pulse Resp B/P Pulse Ox O2 Delivery O2 Flow Rate FiO2 08/07/16 12:22 98.9 88 16 153/101 99 08/07/16 08:32 96.5 110 17 112/69 97 08/07/16 06:11 82 08/07/16 05:08 98.2 81 18 131/78 99 08/07/16 04:22 19 08/07/16 00:58 98.4 101 20 115/78 97 08/06/16 21:29 97.0 102 20 136/91 100 08/06/16 18:40 97.9 97 18 130/92 100 08/06/16 16:00 99.0 112 17 110/78 97 08/06/16 16:00 85 08/06/16 14:00 66 08/06/16 08/06/16 08/07/16 15:00 23:00 07:00 Intake Total 1148 ml Output Total 3500 ml 1250 ml 1000 ml Balance -2352 ml -1250 ml -1000 ml IV Total 1148 ml Output Urine Total 3500 ml 1250 ml 1000 ml # Voids 1 # Bowel Movements 0 . Laboratory Tests Test 08/06/16 07:56 White Blood Count 5.3 TH/MM3 Red Blood Count 3.10 MIL/MM3 Hemoglobin 9.4 GM/DL Hematocrit 26.6 % Mean Corpuscular Volume 85.9 FL Mean Corpuscular Hemoglobin 30.2 PG Mean Corpuscular Hemoglobin 35.2 % Concent Red Cell Distribution Width 12.9 % Platelet Count 85 TH/MM3 Mean Platelet Volume 8.7 FL Neutrophils (%) (Auto) 71.8 % Lymphocytes (%) (Auto) 18.4 % Monocytes (%) (Auto) 7.3 % Eosinophils (%) (Auto) 2.4 % Basophils (%) (Auto) 0.1 % Neutrophils # (Auto) 3.8 TH/MM3 Lymphocytes # (Auto) 1.0 TH/MM3 Monocytes # (Auto) 0.4 TH/MM3 Eosinophils # (Auto) 0.1 TH/MM3 Basophils # (Auto) 0.0 TH/MM3 CBC Comment AUTO DIFF Differential Comment AUTO DIFF CONFIRMED Platelet Estimate LOW Platelet Morphology Comment NORMAL Laboratory Tests Test 08/06/16 07:56 Sodium Level 143 MEQ/L Potassium Level 3.4 MEQ/L Chloride Level 110 MEQ/L Carbon Dioxide Level 25.9 MEQ/L Anion Gap 7 MEQ/L Blood Urea Nitrogen 14 MG/DL Creatinine 1.17 MG/DL Estimat Glomerular Filtration 58 ML/MIN Rate Random Glucose 90 MG/DL Calcium Level 8.4 MG/DL Magnesium Level 1.8 MG/DL Total Bilirubin 1.4 MG/DL Aspartate Amino Transf 57 U/L (AST/SGOT) Alanine Aminotransferase 41 U/L (ALT/SGPT) Alkaline Phosphatase 250 U/L Total Protein 6.2 GM/DL Albumin 2.7 GM/DL Microbiology Date/Time Procedure Status Source Growth 08/05/16 14:17 Aerobic Blood Culture - Preliminary Resulted Blood Peripheral Gram Positive Cocci 08/05/16 14:17 Anaerobic Blood Culture - Preliminary Resulted Blood Peripheral NO GROWTH IN 2 DAYS 08/05/16 14:21 Aerobic Blood Culture - Preliminary Resulted Blood Peripheral NO GROWTH IN 2 DAYS 08/05/16 14:21 Anaerobic Blood Culture - Preliminary Resulted Blood Peripheral NO GROWTH IN 2 DAYS Physical Exam CONSTITUTIONAL/GENERAL: This is an adequately nourished patient, in apparent distress. TUBES/LINES/DRAINS: SKIN: No jaundice, rashes, hemorragic lesions b/l between toes . \ Skin temperature appropriate. Not diaphoretic. EYES: Pupils equal and round and reactive. Extraocular motions intact. No scleral icterus. No injection or drainage. Fundi not examined. ENT: Hearing grossly normal. Nose without bleeding or purulent drainage. Throat without visible erythema, exudates, masses, or lesions. CARDIOVASCULAR: Regular tachycardia without murmurs, gallops, or rubs. No JVD. Peripheral pulses symmetric. RESPIRATORY/CHEST: Symmetric, unlabored respirations. Clear to auscultation. Breath sounds equal bilaterally. No wheezes, rales, or rhonchi. GASTROINTESTINAL: Abdomen soft, non-tender, nondistended. No hepato-splenomegaly , or palpable masses. No guarding. Bowel sounds present. GENITOURINARY: Without palpable bladder distension. Tyson catheter in place with clear yellow urine MUSCULOSKELETAL: Extremities without clubbing, cyanosis, or edema. No joint tenderness or effusion noted. No calf tenderness. No mottling or clubbing. NEUROLOGICAL: Awake and alert. Motor and sensory grossly within normal limits. Follows commands. Speech normal. Moves all extremities. PSYCHIATRIC: tearful, demands pain medx Assessment & Plan Remarks sepsis (leukocytis, hypotesiotn \ IVDU, ro endocarditis - 2 D echo ngative SIENA planned - persistent bacteremia Neck pain x few days - - non contrasted MRI wo e/o osteo/diskitis ARF, resolving - cont oxacillin - if GPC in the most recent blood confirmed as MSSA will add gent for 3-5 days Cynthia Jordan RN, MD August 07, 2016 13:03
[2016-08-07] MEDS: HYDROmorphone HCL PF 2 MG/ML VIAL IV PUSH PRN ×2 (18:37→23:25)
[2016-08-08] VITALS (8 sets, daily range): BP systolic 111–137; BP diastolic 62–90; PULSE 68–97; RESP 17–22; TEMP 96–98.7; O2SAT 96–100
[2016-08-08] MEDS: OXACILLIN INJ 2 GM in SODIUM CHLORIDE 0.9% INJ 100 ML IV SCH ×6 (03:29→22:58)
[2016-08-08] MEDS: CHLORHEXIDINE GLUCONATE 2 % 1 PACK (2 CLOTHS) TOP SCH (04:00)
[2016-08-08] MEDS: HYDROmorphone HCL PF 2 MG/ML VIAL IV PUSH PRN ×2 (06:15→10:24)
[2016-08-08] MEDS: SODIUM CHLORIDE 0.9% FLUSH 10 ML FLUSH IV FLUSH SCH ×2 (09:00→21:00)
[2016-08-08] MEDS: SODIUM CHLOR 0.9% 1000 ML INJ 1,000 ML IV SCH ×2 (09:24→23:06)
[2016-08-08] MEDS: EMTRICITABINE/TENOFOVIR 200 MG/300 MG TAB PO SCH (09:29)
--- NOTE | 2016-08-08 13:32 | HHI.PR ---
Subjective Remarks Patient seen for follow up encephalopathy/sepsis. 08/08/16-patient seen this afternoon. No acute events overnight. Vitals essentially WNL. Continues to c/o pleuritic CP, present since before this admission. Responds well to [place]. No other complaints today. Denies any SOB or F/C. Objective Vitals Vital Signs Date Time Temp Pulse Resp B/P Pulse Ox O2 Delivery O2 Flow Rate FiO2 08/08/16 12:30 96.7 75 20 136/90 100 08/08/16 08:44 97 08/08/16 08:35 97.5 81 17 123/72 96 08/08/16 06:55 18 08/08/16 06:00 96.0 88 20 120/74 98 08/08/16 00:38 97.8 79 20 131/77 100 08/07/16 21:59 97.7 103 20 125/90 100 08/07/16 21:00 84 08/07/16 16:05 97.0 82 16 122/77 100 I/O 08/07/16 08/07/16 08/07/16 08/08/16 08/08/16 08/08/16 06:59 14:59 22:59 06:59 14:59 22:59 Intake Total 600 ml 1220 ml Output Total 1000 ml 1800 ml Balance -1000 ml 600 ml -580 ml Intake Oral 600 ml 720 ml IV Total 500 ml Output Urine Total 1000 ml 1800 ml # Bowel Movements 0 0 Result Diagram: 08/06/16 0756 08/06/16 0756 Objective Remarks GENERAL: This is a well-nourished, well-developed patient, in no apparent distress. CARDIOVASCULAR: Regular rate and regular rhythm without murmurs, gallops, or rubs. RESPIRATORY: Clear to auscultation. Breath sounds equal bilaterally. No wheezes , rales, or rhonchi. GASTROINTESTINAL: Abdomen soft, non-tender, nondistended. Normal, active bowel sounds MUSCULOSKELETAL: Extremities without clubbing, cyanosis, or edema. NEURO: Alert & Oriented x4 to person, place, time, situation. Moves all ext x4 Procedures central line placement A/P Problem List: (1) Septic shock ICD Code: A41.9 Status: Acute (2) Acute kidney failure ICD Code: N17.9 Status: Acute (3) Acute encephalopathy ICD Code: G93.40 Status: Acute (4) Probable infective endocarditis Status: Acute (5) Hyponatremia ICD Code: E87.1 Status: Resolved (6) MSSA bacteremia Status: Acute (7) Thrombocytopenia ICD Code: D69.6 Status: Chronic (8) Elevated liver enzymes ICD Code: R74.8 Status: Acute (9) Hepatitis C ICD Code: B19.20 Status: Acute (10) HIV (human immunodeficiency virus infection) ICD Code: Z21 Status: Chronic (11) Polysubstance dependence ICD Code: F19.20 Status: Acute (12) IVDU (intravenous drug user) ICD Code: F19.90 Status: Acute Assessment and Plan Acute encephalopathy- improved IV drug use (history of using methamphetamine, Dilaudid) History of drug withdrawal -Breakthrough dilaudid DCed. Cont PRN norco. Cont to wean opiates. -UDS positive for cocaine, opiates, benzos (opiates and benzos could be given in hospital) -Encephalopathy seems to be secondary to severe sepsis History of septic pulmonary emboli in the past -Nasal cannula oxygen, as needed -DuoNeb every 4 hours when necessary, aggressive pulmonary toilet -CT chest no evidence of lung abscess or septic emboli Septic shock -resolved Probable infective endocarditis MSSA bacteremia -2d echo did not show any vegetation. SIENA planned. -MRI of the C-spine and MRI of the left wrist negative for abscess, osteo -continue Oxacillin -ID following Elevated bilirubin Hepatitis C -CT abdomen pelvis shows no evidence of infection-negative -Gallbladder ultrasound due to elevated bilirubin-enlarged liver, negative Mullins sign Acute kidney failure Severe dehydration -Monitor renal function closely. Dias catheter. -continue IV fluid -will dc dias cath soon. History of HIV - Oxacillin started 08/05/16 -Continue Truvada -CD4, viral load testing-defer to ID Mild thrombocytopenia -due to sepsis -Monitor CBC, CMP, coags periodically PPX -Bilateral lower extremity SCDs. Avoid chemical DVT prophylaxis due to thrombocytopenia. LINES -RIJ central line Domingo Perez MD R3 August 08, 2016 13:32
[2016-08-08] MEDS ORDERED: ACETAMINOPHEN/HYDROcodone 325 MG/5 MG TAB PO PRN (14:00)
--- NOTE | 2016-08-08 14:19 | HHI.PR ---
Addendum to Inpatient Note Additional Information repeat BC 03/22 MSSA - will hold off geent 2/2 recent ARF and low level recurrent bacteremia, will rechk another set of BC; if those + will add gent ; ow anticipate IV abx 4-6 wks P SIENA results Cynthia Morfin MD August 08, 2016 14:19
[2016-08-08] MEDS: ACETAMINOPHEN/HYDROcodone 325 MG/5 MG TAB PO PRN ×3 (14:27→22:57)
--- NOTE | 2016-08-08 16:44 | CF ---
cc: BRUNO TONY MD INDICATIONS FOR PROCEDURE: Endocarditis. DETAILS OF PROCEDURE: The patient gave informed consent. She was kept NPO prior to the procedure. Anesthesia was utilized to assist with sedation. The patient was sedated by anesthesia and the transesophageal echocardiogram probe passed easily into the esophagus. Images were obtained. An agitated saline contrast injection was utilized. The patient tolerated the procedure well and the probe was removed. FINDINGS: LEFT VENTRICLE: There is normal structure and function of the left ventricle. PERICARDIUM: No effusion is present. CHAMBERS: All four cardiac chambers are within normal limits. VALVULAR EVALUATION: The aortic valve appears structurally and functionally normal. Some images did appear to show what I believe is a shadow as in the long axis view of the aorta/aortic valve. The short axis view did not reveal any vegetations. The mitral valve appeared to structurally have some thickened leaflets but was otherwise normal with trace amount of regurgitation. The tricuspid valve also appeared structurally and functionally normal. No evidence for endocarditis was appreciated. CONCLUSIONS: 1. Normal valvular evaluation. 2. Normal left ventricular function. 3. Normal bubble study. Thai Boykin/aura /10:04 AM /4:40 PM
[2016-08-08 17:30] LABS: BASOPHIL % 0.3 % (0.0-2.0); EOSINOPHIL # 0.4 TH/MM3 (0-0.4); EOSINOPHIL % 6.9 % (0.0-4.0); HEMATOCRIT 31.8 % (35.0-46.0); HEMO FLAGS DIFF FINAL; LYMPH % 26.2 % (9.0-44.0); LYMPHOCYTE # 1.5 TH/MM3 (1.0-4.8); MEAN CORPUSCULAR HEMOGLOBIN 28.9 PG (27.0-34.0); MONO % 12.1 % (0.0-8.0); NEUT % 54.5 % (16.0-70.0); PLATELET COUNT 166 TH/MM3 (150-450); RED BLOOD COUNT 3.74 MIL/MM3 (4.00-5.30); RED CELL DISTRIBUTION WIDTH 12.8 % (11.6-17.2); WHITE BLOOD COUNT 5.6 TH/MM3 (4.0-11.0)
[2016-08-08 17:45] LABS: BICARBONATE 28.1 MEQ/L (21.0-32.0)
[2016-08-09] VITALS (7 sets, daily range): BP systolic 110–139; BP diastolic 71–89; PULSE 67–81; RESP 16–20; TEMP 96.6–98.3; O2SAT 97–100
[2016-08-09] MEDS: OXACILLIN INJ 2 GM in SODIUM CHLORIDE 0.9% INJ 100 ML IV SCH ×6 (01:50→21:00)
[2016-08-09] MEDS: ACETAMINOPHEN/HYDROcodone 325 MG/5 MG TAB PO PRN ×4 (03:26→22:57)
[2016-08-09] MEDS: CHLORHEXIDINE GLUCONATE 2 % 1 PACK (2 CLOTHS) TOP SCH (03:27)
[2016-08-09] MEDS: EMTRICITABINE/TENOFOVIR 200 MG/300 MG TAB PO SCH (10:01)
[2016-08-09] MEDS: SODIUM CHLORIDE 0.9% FLUSH 10 ML FLUSH IV FLUSH SCH ×2 (10:02→20:59)
--- NOTE | 2016-08-09 11:59 | HHI.IDPN ---
Subjective Subjective Remarks afebrile SIENA negative co pleuritic L sided chest pain also now co R hip pain Antibiotics oxacillin Allergies: Coded Allergies: Buspar (Verified Adverse Reaction, Severe, Irritability/Anxiety, 08/04/16) *MDRO Multi-Drug Resistant Organism (Verified Adverse Reaction, Unknown, ) MRSA (wrist wound) 11/2014; MRSA (blood & arm-08/2015)&(hand-01/21/16) MRSA PCR screen POSITIVE-08/04/16 Objective . Vital Signs Date Time Temp Pulse Resp B/P Pulse Ox O2 Delivery O2 Flow Rate FiO2 08/09/16 10:53 67 08/09/16 08:00 97.0 78 16 119/80 99 08/09/16 04:42 18 08/09/16 04:00 97.8 69 16 110/72 98 08/09/16 00:00 98.2 72 18 115/71 100 08/08/16 22:01 84 08/08/16 20:00 98.7 68 18 111/62 96 08/08/16 16:48 98.5 78 22 137/81 100 08/08/16 12:30 96.7 75 20 136/90 100 08/08/16 08/08/16 08/09/16 15:00 23:00 07:00 Intake Total 640 ml 360 ml 2520 ml Output Total 3000 ml Balance 640 ml 360 ml -480 ml Intake Oral 300 ml 360 ml 1000 ml IV Total 340 ml 1520 ml Output Urine Total 3000 ml # Voids 2 2 3 . Laboratory Tests Test 08/08/16 17:04 White Blood Count 5.6 TH/MM3 Red Blood Count 3.74 MIL/MM3 Hemoglobin 10.8 GM/DL Hematocrit 31.8 % Mean Corpuscular Volume 85.0 FL Mean Corpuscular Hemoglobin 28.9 PG Mean Corpuscular Hemoglobin 34.0 % Concent Red Cell Distribution Width 12.8 % Platelet Count 166 TH/MM3 Mean Platelet Volume 8.9 FL Neutrophils (%) (Auto) 54.5 % Lymphocytes (%) (Auto) 26.2 % Monocytes (%) (Auto) 12.1 % Eosinophils (%) (Auto) 6.9 % Basophils (%) (Auto) 0.3 % Neutrophils # (Auto) 3.0 TH/MM3 Lymphocytes # (Auto) 1.5 TH/MM3 Monocytes # (Auto) 0.7 TH/MM3 Eosinophils # (Auto) 0.4 TH/MM3 Basophils # (Auto) 0.0 TH/MM3 CBC Comment DIFF FINAL Differential Comment Laboratory Tests Test 08/08/16 17:04 Sodium Level 141 MEQ/L Potassium Level 3.0 MEQ/L Chloride Level 104 MEQ/L Carbon Dioxide Level 28.1 MEQ/L Anion Gap 9 MEQ/L Blood Urea Nitrogen 8 MG/DL Creatinine 0.74 MG/DL Estimat Glomerular Filtration 99 ML/MIN Rate Random Glucose 109 MG/DL Calcium Level 8.2 MG/DL Microbiology Date/Time Procedure Status Source Growth 08/08/16 17:04 Aerobic Blood Culture - Preliminary Resulted Blood Peripheral NO GROWTH IN 1 DAY 08/08/16 17:04 Anaerobic Blood Culture - Preliminary Resulted Blood Peripheral NO GROWTH IN 1 DAY 08/08/16 17:04 Aerobic Blood Culture - Preliminary Resulted Blood Peripheral NO GROWTH IN 1 DAY 08/08/16 17:04 Anaerobic Blood Culture - Preliminary Resulted Blood Peripheral NO GROWTH IN 1 DAY Imaging Last Impressions Wrist MRI 08/05/16 0000 Signed Impressions: Service Date/Time: Friday, August 05, 2016 11:25 - CONCLUSION: Superficial soft tissue edema and minimal extensor tenosynovitis. No evidence of abscess or osteomyelitis. Sidney Campuzano MD Chest X-Ray 08/05/16 0000 Signed Impressions: Service Date/Time: Friday, August 05, 2016 03:57 - CONCLUSION: 1. Right central line in superior vena cava. Minimal basilar atelectasis. Lazarus Burton MD Cervical Spine MRI 08/05/16 Signed Impressions: Service Date/Time: Friday, August 05, 2016 10:59 - CONCLUSION: Cervical MRI within normal limits. Sidney Campuzano MD Wrist X-Ray 08/04/16 Signed Impressions: Service Date/Time: Thursday, August 04, 2016 16:18 - CONCLUSION: 1. Negative examination of the wrist. Jw Alvarez MD Gall Bladder Ultrasound 08/04/16 Signed Impressions: Service Date/Time: Thursday, August 04, 2016 15:29 - CONCLUSION: Mild, nonspecific wall thickening of the gallbladder. Negative sonographic Mullins's sign. Mildly enlarged liver. The rest of the right upper quadrant ultrasound is normal. Leonard Colvin MD Chest CT 5/19/17 0000 Signed Impressions: Service Date/Time: Thursday, August 04, 2016 13:01 - CONCLUSION: Minimal bibasilar parenchymal changes, predominantly peribronchial thickening without pleural effusion, pneumothorax or alveolar consolidation. Truong Holly MD FACR Abdomen/Pelvis CT 08/04/16 0000 Signed Impressions: Service Date/Time: Thursday, August 04, 2016 13:01 - CONCLUSION: I do not see colitis or other etiology for patient's abdominal pain. Truong Holly MD FACR Physical Exam CONSTITUTIONAL/GENERAL: This is an adequately nourished patient, in apparent distress. TUBES/LINES/DRAINS: SKIN: No jaundice, rashes, hemorragic lesions b/l between toes . \ Skin temperature appropriate. Not diaphoretic. EYES: Pupils equal and round and reactive. Extraocular motions intact. No scleral icterus. No injection or drainage. Fundi not examined. ENT: Hearing grossly normal. Nose without bleeding or purulent drainage. Throat without visible erythema, exudates, masses, or lesions. CARDIOVASCULAR: Regular tachycardia without murmurs, gallops, or rubs. No JVD. Peripheral pulses symmetric. RESPIRATORY/CHEST: Symmetric, unlabored respirations. Clear to auscultation. Breath sounds equal bilaterally. No wheezes, rales, or rhonchi. GASTROINTESTINAL: Abdomen soft, non-tender, nondistended. No hepato-splenomegaly , or palpable masses. No guarding. Bowel sounds present. GENITOURINARY: Without palpable bladder distension. Tyson catheter in place with clear yellow urine MUSCULOSKELETAL: Extremities without clubbing, cyanosis, or edema. R hip with limited ROM aspecially adduction 2/2 pain NEUROLOGICAL: Awake and alert. Motor and sensory grossly within normal limits. Follows commands. Speech normal. Moves all extremities. PSYCHIATRIC: tearful, demands pain medx again Assessment & Plan Remarks sepsis (leukocytis, hypotesiotn ), - MSSA IVDU, ro endocarditis - 2 D echo ngative SIENA negative - persistent bacteremia Neck pain x few days - - non contrasted MRI wo e/o osteo/diskitis ARF, resolved New R side hip pain Pleuritic CP - cont oxacillin -fu P clx R hip MRI - repeat CXR dw Cynthia Seals RN, MD August 09, 2016 11:59
[2016-08-09] MEDS ORDERED: HYDROmorphone HCL PF 1 MG/ML VIAL IV PUSH ONE (12:00)
--- NOTE | 2016-08-09 12:03 | HHI.PR ---
Subjective Remarks in no acute distress. complaining of pleuritic chest pain. no fever. d/w the RN and . Objective Vitals Vital Signs Date Time Temp Pulse Resp B/P Pulse Ox O2 Delivery O2 Flow Rate FiO2 08/09/16 10:53 67 08/09/16 08:00 97.0 78 16 119/80 99 08/09/16 04:42 18 08/09/16 04:00 97.8 69 16 110/72 98 08/09/16 00:00 98.2 72 18 115/71 100 08/08/16 22:01 84 08/08/16 20:00 98.7 68 18 111/62 96 08/08/16 16:48 98.5 78 22 137/81 100 08/08/16 12:30 96.7 75 20 136/90 100 I/O 08/08/16 08/08/16 08/08/16 08/09/16 08/09/16 08/09/16 07:00 15:00 23:00 07:00 15:00 23:00 Intake Total 1220 ml 640 ml 360 ml 2520 ml 669 ml Output Total 1800 ml 3000 ml Balance -580 ml 640 ml 360 ml -480 ml 669 ml Intake Oral 720 ml 300 ml 360 ml 1000 ml IV Total 500 ml 340 ml 1520 ml 669 ml Output Urine Total 1800 ml 3000 ml # Voids 2 2 3 # Bowel Movements 0 Result Diagram: 08/08/16 1704 08/08/16 1704 Imaging Last Impressions Wrist MRI 08/05/16 0000 Signed Impressions: Service Date/Time: Friday, August 05, 2016 11:25 - CONCLUSION: Superficial soft tissue edema and minimal extensor tenosynovitis. No evidence of abscess or osteomyelitis. Sidney Campuzano MD Chest X-Ray 08/05/16 0000 Signed Impressions: Service Date/Time: Friday, August 05, 2016 03:57 - CONCLUSION: 1. Right central line in superior vena cava. Minimal basilar atelectasis. Lazarus Burton MD Cervical Spine MRI 08/05/16 0000 Signed Impressions: Service Date/Time: Friday, August 05, 2016 10:59 - CONCLUSION: Cervical MRI within normal limits. Sidney Campuzano MD Wrist X-Ray 08/04/16 0000 Signed Impressions: Service Date/Time: Thursday, August 04, 2016 16:18 - CONCLUSION: 1. Negative examination of the wrist. Jw Alvarez MD Gall Bladder Ultrasound 08/04/16 0000 Signed Impressions: Service Date/Time: Thursday, August 04, 2016 15:29 - CONCLUSION: Mild, nonspecific wall thickening of the gallbladder. Negative sonographic Mullins's sign. Mildly enlarged liver. The rest of the right upper quadrant ultrasound is normal. Leonard Colvin MD Chest CT 08/04/16 0000 Signed Impressions: Service Date/Time: Thursday, August 04, 2016 13:01 - CONCLUSION: Minimal bibasilar parenchymal changes, predominantly peribronchial thickening without pleural effusion, pneumothorax or alveolar consolidation. Truong Holly MD FACR Abdomen/Pelvis CT 08/04/16 0000 Signed Impressions: Service Date/Time: Thursday, August 04, 2016 13:01 - CONCLUSION: I do not see colitis or other etiology for patient's abdominal pain. Truong Holly MD FACR Objective Remarks GENERAL: This is a well-nourished, well-developed patient, in no apparent distress. CARDIOVASCULAR: Regular rate and regular rhythm without murmurs, gallops, or rubs. RESPIRATORY: Clear to auscultation. Breath sounds equal bilaterally. No wheezes , rales, or rhonchi. GASTROINTESTINAL: Abdomen soft, non-tender, nondistended. Normal, active bowel sounds MUSCULOSKELETAL: Extremities without clubbing, cyanosis, or edema. NEURO: Alert & Oriented x4 to person, place, time, situation. Moves all ext x4 Procedures central line placement Medications and IVs Current Medications Sodium Chloride 1,000 ml @ 1,000 mls/hr Q1H ONCE IV Last administered on 08:15; Start 08/04/16 at 07:49; Stop 08/04/16 at 08:48; Status DC Sodium Chloride (NS 1000 ml Inj) 800 ml @ 1,000 mls/hr Q48M ONCE IV Last administered on 08/04/16 08:15; Start 08/04/16 at 07:49; Stop 08/04/16 at 08:36 ; Status DC Naloxone HCl 0.4 mg 0.4 mg ONCE ONCE IV PUSH Last administered on 08/04/16 08 :16; Start 08/04/16 at 08:00; Stop 08/04/16 at 08:01; Status DC Norepinephrine Bitartrate 250 ml @ 0 mls/hr TITRATE IV Last administered on 08:56; Start 08/04/16 at 08:30; Stop 08/04/16 at 09:55; Status DC Vancomycin HCl 1000 mg/Sodium Chloride 250 ml @ 250 mls/hr ONCE STAT IV ; Start 08/04/16 at 08:32; Stop 08/04/16 at 09:31; Status Cancel Piperacillin Sod/ Tazobactam Sod 100 ml @ 200 mls/hr ONCE STAT IV Last administered on 08/04/16 08:39; Start 08/04/16 at 08:32; Stop 08/04/16 at 09:01 ; Status DC Sodium Chloride (NS 1000 ml Inj) 1,000 ml @ 70 mls/hr [id number] IV Last administered on 08/07/16 19:06; Start 08/04/16 at 08:33 Sodium Chloride (NS Flush) 2 ml UNSCH PRN IV FLUSH FLUSH AFTER USING IV ACCESS Last administered on 08/04/16 15:07; Start 08/04/16 at 08:45 Sodium Chloride (NS Flush) 2 ml BID IV FLUSH Last administered on 08/08/16 21: 00; Start 08/04/16 at 09:00 Pantoprazole Sodium (Protonix Inj) 40 mg DAILY IV Last administered on 10:06; Start 08/04/16 at 09:00; Stop 08/06/16 at 11:02; Status DC Albuterol/ Ipratropium (Duoneb Neb) 1 ampule Q6HR NEB INH Last administered on 08/06/16 09:43; Start 08/04/16 at 10:00; Stop 08/06/16 at 11:02; Status DC Albuterol/ Ipratropium (Duoneb Neb) 1 ampule Q2HR NEB PRN INH WHEEZING; Start 08/04/16 at 08:45 Enoxaparin Sodium (Lovenox Inj) 40 mg Q24H SQ ; Start 08/04/16 at 08:45; Stop at 08:45; Status DC Miscellaneous Information 1 [id number] ; Start 08/04/16 at 08:45 Chlorhexidine Gluconate (Chlorhexidine 2% Cloth) 3 pack Taper DAILY@04 TOP Last administered on 08/06/16 02:49; Start 08/05/16 at 04:00; Stop 08/01/17 at 03:59 Chlorhexidine Gluconate 3 pack 3 pack UNSCH PRN TOP HYGIENIC CARE; Start at 08:45 Piperacillin Sod/ Tazobactam Sod 50 ml @ 100 mls/hr Q6H IV Last administered on 08/05/16 14:21; Start 08/04/16 at 14:00; Stop 08/05/16 at 17:53; Status DC Pharmacy Profile Note (Vancomycin Consult Pharmacy) 0 ml @ 0 mls/hr UNSCH OTHER ; Start 08/04/16 at 08:45; Stop 08/05/16 at 17:53; Status DC Hydromorphone HCl (Dilaudid Pf Inj) 2 mg ONCE ONCE IV PUSH Last administered on 08/04/16 10:05; Start 08/04/16 at 10:00; Stop 08/04/16 at 10:01; Status DC Hydromorphone HCl 2 mg 2 mg Q3H PRN IV PUSH pain 6-10 Last administered on 08/05 07:38; Start 08/04/16 at 10:00; Stop 08/05/16 at 07:42; Status DC Norepinephrine Bitartrate (Levophed-Dextrose Drip) 250 ml @ 0 mls/hr TITRATE IV Last administered on 08/04/16 16:52; Start 08/04/16 at 10:00; Stop 08/06/16 at 11:02; Status DC Terbutaline Sulfate 1 mg 1 mg UNSCH PRN SQ For Extravasation; Start 08/04/16 at 10:00 Sodium Chloride 1,000 ml @ 999 mls/hr BOLUS ONCE IV Last administered on 08/04 10:34; Start 08/04/16 at 10:00; Stop 08/04/16 at 11:00; Status DC Sodium Chloride 1,000 ml @ 999 mls/hr BOLUS ONCE IV Last administered on 08/04 10:00; Start 08/04/16 at 10:00; Stop 08/04/16 at 11:00; Status DC Sodium Chloride 1,000 ml @ 999 mls/hr BOLUS ONCE IV Last administered on 08/04 12:08; Start 08/04/16 at 10:00; Stop 08/04/16 at 11:00; Status DC Vancomycin HCl/ Sodium Chloride (Vancomycin Inj/ NS 250 ml Inj) 262.5 ml @ 250 mls/hr ONCE ONCE IV Last administered on 08/04/16 12:02; Start 08/04/16 at 11 :00; Stop 08/04/16 at 12:02; Status DC Lorazepam (Ativan Inj) 2 mg Q4H PRN IV PUSH for anxiety Last administered on 10:06; Start 08/04/16 at 11:00; Stop 08/06/16 at 11:02; Status DC Diphenhydramine HCl (Benadryl Inj) 50 mg STK-MED ONCE .ROUTE ; Start 08/04/16 at 13:24; Stop 08/04/16 at 13:25; Status DC Diphenhydramine HCl (Benadryl Inj) 50 mg Q6H PRN IV PUSH itching Last administered on 08/04/16 14:33; Start 08/04/16 at 13:30; Stop 08/07/16 at 13:29 ; Status DC Non-Formulary Medication 1 tab DAILY PO ; Start 08/05/16 at 09:00; Stop at 09:00; Status DC Emtricitabine/ Tenofovir 1 tab 1 tab DAILY PO Last administered on 08/09/16 10 :01; Start 08/05/16 at 09:00 Sodium Chloride (NS 1000 ml Inj) 1,000 ml @ 0 mls/hr BOLUS IV ; Start 08/05/16 at 07:15 Hydromorphone HCl (Dilaudid Pf Inj) 2 mg Q4H PRN IV PUSH pain 6-10 Last administered on 08/06/16 12:08; Start 08/05/16 at 11:00; Stop 08/06/16 at 13:03 ; Status DC Acetaminophen/ Hydrocodone Bitart 1 tab 1 tab Q4H PRN PO pain3-5 Last administered on 08/07/16 16:12; Start 08/05/16 at 08:00; Stop 08/08/16 at 13:28 ; Status DC Vancomycin HCl/ Sodium Chloride (Vancomycin Inj/ NS 250 ml Inj) 250 ml @ 250 mls/hr ONCE ONCE IV Last administered on 08/05/16 14:21; Start 08/05/16 at 14 :00; Stop 08/05/16 at 17:53; Status DC Potassium Chloride 40 meq 40 meq ONCE ONCE PO Last administered on 08/05/16 17:02; Start 08/05/16 at 16:30; Stop 08/05/16 at 16:31; Status DC Oxacillin Sodium/ Sodium Chloride (Prostaphlin Inj/ NS Inj) 100 ml @ 200 mls/ hr Q4H IV Last administered on 08/09/16 10:03; Start 08/05/16 at 18:00 Potassium Bicarb/ Potassium Chloride (K-Lyte Cl Eff) 50 meq ONCE ONCE PO Last administered on 08/06/16 13:48; Start 08/06/16 at 13:00; Stop 08/06/16 at 13:01; Status DC Hydromorphone HCl (Dilaudid Pf Inj) 1 mg Q4H PRN IV PUSH pain 6-10 Last administered on 08/08/16 10:24; Start 08/06/16 at 15:00; Stop 08/08/16 at 10:59 ; Status DC Acetaminophen/ Hydrocodone Bitart ([place] 5-325 Mg) 1 tab Q4H PRN PO PAIN SCALE 5 TO 7; Start 08/08/16 at 14:00 Acetaminophen/ Hydrocodone Bitart ([place] 5-325 Mg) 2 tab Q4H PRN PO PAIN SCALE 8 TO 10 Last administered on 08/09/16 10:01; Start 08/08/16 at 14:00 A/P Assessment and Plan A/P Acute encephalopathy- improved IV drug use (history of using methamphetamine, Dilaudid) History of drug withdrawal -continue with narco. -UDS positive for cocaine, opiates, benzos (opiates and benzos could be given in hospital) -Encephalopathy seems to be secondary to severe sepsis History of septic pulmonary emboli in the past -Nasal cannula oxygen -DuoNeb every 4 hours when necessary, aggressive pulmonary toilet -CT chest no evidence of lung abscess septic emboli Septic shock -resolved Probable infective endocarditis MSSA bacteremia -2d echo and SIENA did not show any vegetation. -continue Oxacillin -follow the repeated blood cultures. -ID following Elevated bilirubin Hepatitis C -CT abdomen pelvis shows no evidence of infection-negative -Gallbladder ultrasound due to elevated bilirubin-enlarged liver, negative Mullins sign Acute kidney failure - resolved. Severe dehydration -Monitor renal function. Septic shock Probable infective endocarditis/MSSA Leukocytosis bandemia History of HIV Hep C - Oxacillin started 08/05/16 -Continue Truvada -CD4, viral load testing-defer to ID -MRI of the C-spine and MRI of the left wrist negative for abscess, osteo L wrist swelling -MRI L wrist neg for infection, abscess Mild thrombocytopenia due to sepsis -resolved. -Monitor CBC periodically Mert Mejía MD August 09, 2016 12:03
[2016-08-09] MEDS: SODIUM CHLOR 0.9% 1000 ML INJ 1,000 ML IV SCH (12:25)
--- NOTE | 2016-08-09 12:45 | RADRPT ---
EXAM DATE/TIME: 08/09/2016 12:08 [facility] COMPARISON: CHEST SINGLE AP, August 05, 2016, 3:57. INDICATIONS : Chest pain. MEDICAL HISTORY : HIV. Hepatitis C. Hernia repair. SURGICAL HISTORY : None. ENCOUNTER: Subsequent ACUITY: 3 days PAIN SCORE: 4/10 LOCATION: chest FINDINGS: There is mild bilateral perihilar and medial basilar atelectasis or parenchymal scarring. There is no evidence of effusion. Heart size and mediastinal contours are satisfactory. CONCLUSION: Mild perihilar and basilar parenchymal opacities. Leonard Mckinney MD on August 09, 2016 at 12:43 Board Certified Radiologist. This report was verified electronically.
[2016-08-09 13:27] LABS: AUTOMATED NEUTROPHIL # 2.7 TH/MM3 (1.8-7.7); BASOPHIL % 0.3 % (0.0-2.0); EOSINOPHIL # 0.3 TH/MM3 (0-0.4); EOSINOPHIL % 6.4 % (0.0-4.0); HEMATOCRIT 31.2 % (35.0-46.0); HEMO FLAGS DIFF FINAL; LYMPH % 23.9 % (9.0-44.0); LYMPHOCYTE # 1.1 TH/MM3 (1.0-4.8); MEAN CELL VOLUME 85.1 FL (80.0-100.0); MEAN CORPUSCULAR HEMOGLOBIN 29.9 PG (27.0-34.0); MEAN CORPUSCULAR HGB CONC 35.1 % (32.0-36.0); MONO % 9.7 % (0.0-8.0); NEUT % 59.7 % (16.0-70.0); PLATELET COUNT 213 TH/MM3 (150-450); RED BLOOD COUNT 3.67 MIL/MM3 (4.00-5.30); RED CELL DISTRIBUTION WIDTH 12.6 % (11.6-17.2); WHITE BLOOD COUNT 4.6 TH/MM3 (4.0-11.0)
[2016-08-09 13:44] LABS: BICARBONATE 28.4 MEQ/L (21.0-32.0); POTASSIUM 3.4 MEQ/L (3.5-5.1)
[2016-08-09 13:54] LABS: BETA HCG QUANT LESS THAN 1 MIU/ML (0-5)
[2016-08-09] MEDS ORDERED: POTASSIUM CHLORIDE 10 MEQ CONTROLLED RELEASE TAB PO ONE (14:00)
[2016-08-09] MEDS: ONDANSETRON HCL 4 MG/2 ML VIAL IV PUSH PRN (20:56)
[2016-08-10] VITALS (8 sets, daily range): BP systolic 103–136; BP diastolic 58–80; PULSE 61–86; RESP 18–20; TEMP 96.8–98.3; O2SAT 96–100
[2016-08-10] MEDS: OXACILLIN INJ 2 GM in SODIUM CHLORIDE 0.9% INJ 100 ML IV SCH ×6 (01:14→21:25)
[2016-08-10] MEDS: CHLORHEXIDINE GLUCONATE 2 % 1 PACK (2 CLOTHS) TOP SCH (04:00)
[2016-08-10] MEDS: SODIUM CHLOR 0.9% 1000 ML INJ 1,000 ML IV SCH ×2 (04:18→21:26)
[2016-08-10] MEDS: ONDANSETRON HCL 4 MG/2 ML VIAL IV PUSH PRN ×2 (06:17→13:40)
[2016-08-10] MEDS: ACETAMINOPHEN/HYDROcodone 325 MG/5 MG TAB PO PRN ×3 (06:18→18:15)
[2016-08-10] MEDS: EMTRICITABINE/TENOFOVIR 200 MG/300 MG TAB PO SCH (10:05)
[2016-08-10] MEDS: SODIUM CHLORIDE 0.9% FLUSH 10 ML FLUSH IV FLUSH SCH ×2 (10:11→21:00)
--- NOTE | 2016-08-10 13:23 | HHI.IDPN ---
Subjective Subjective Remarks afebrile SIENA negative co pleuritic L sided chest pain - unchanged much improved R hip pain Antibiotics oxacillin Allergies: Coded Allergies: Buspar (Verified Adverse Reaction, Severe, Irritability/Anxiety, 08/04/16) *MDRO Multi-Drug Resistant Organism (Verified Adverse Reaction, Unknown, ) MRSA (wrist wound) 11/2014; MRSA (blood & arm-08/2015)&(hand-01/21/16) MRSA PCR screen POSITIVE-08/04/16 Objective . Vital Signs Date Time Temp Pulse Resp B/P Pulse Ox O2 Delivery O2 Flow Rate FiO2 08/10/16 12:18 61 08/10/16 12:00 98.3 75 18 120/72 100 08/10/16 08:00 97.3 71 18 122/80 100 08/10/16 04:00 97.1 75 20 103/58 98 08/10/16 00:00 97.0 81 20 115/63 100 08/09/16 20:00 96.6 76 20 124/81 98 08/09/16 20:00 70 08/09/16 16:00 97.7 75 16 130/88 97 08/09/16 08/09/16 08/10/16 15:00 23:00 07:00 Intake Total 909 ml 1425 ml 1140 ml Balance 909 ml 1425 ml 1140 ml Intake Oral 240 ml 480 ml 120 ml IV Total 669 ml 945 ml 1020 ml # Voids 3 2 2 # Bowel Movements 0 1 0 . Laboratory Tests Test 08/08/16 08/09/16 17:04 13:18 White Blood Count 5.6 TH/MM3 4.6 TH/MM3 Red Blood Count 3.74 MIL/MM3 3.67 MIL/MM3 Hemoglobin 10.8 GM/DL 11.0 GM/DL Hematocrit 31.8 % 31.2 % Mean Corpuscular Volume 85.0 FL 85.1 FL Mean Corpuscular Hemoglobin 28.9 PG 29.9 PG Mean Corpuscular Hemoglobin 34.0 % 35.1 % Concent Red Cell Distribution Width 12.8 % 12.6 % Platelet Count 166 TH/MM3 213 TH/MM3 Mean Platelet Volume 8.9 FL 8.4 FL Neutrophils (%) (Auto) 54.5 % 59.7 % Lymphocytes (%) (Auto) 26.2 % 23.9 % Monocytes (%) (Auto) 12.1 % 9.7 % Eosinophils (%) (Auto) 6.9 % 6.4 % Basophils (%) (Auto) 0.3 % 0.3 % Neutrophils # (Auto) 3.0 TH/MM3 2.7 TH/MM3 Lymphocytes # (Auto) 1.5 TH/MM3 1.1 TH/MM3 Monocytes # (Auto) 0.7 TH/MM3 0.4 TH/MM3 Eosinophils # (Auto) 0.4 TH/MM3 0.3 TH/MM3 Basophils # (Auto) 0.0 TH/MM3 0.0 TH/MM3 CBC Comment DIFF FINAL DIFF FINAL Differential Comment Laboratory Tests Test 08/08/16 08/09/16 17:04 13:18 Sodium Level 141 MEQ/L 142 MEQ/L Potassium Level 3.0 MEQ/L 3.4 MEQ/L Chloride Level 104 MEQ/L 106 MEQ/L Carbon Dioxide Level 28.1 MEQ/L 28.4 MEQ/L Anion Gap 9 MEQ/L 8 MEQ/L Blood Urea Nitrogen 8 MG/DL 10 MG/DL Creatinine 0.74 MG/DL 0.65 MG/DL Estimat Glomerular Filtration 99 ML/MIN 115 ML/MIN Rate Random Glucose 109 MG/DL 79 MG/DL Calcium Level 8.2 MG/DL 8.7 MG/DL Human Chorionic Gonadotropin, LESS THAN 1 Quant MIU/ML Microbiology Date/Time Procedure Status Source Growth 08/08/16 17:04 Aerobic Blood Culture - Preliminary Resulted Blood Peripheral NO GROWTH IN 2 DAYS 08/08/16 17:04 Anaerobic Blood Culture - Preliminary Resulted Blood Peripheral NO GROWTH IN 2 DAYS 08/08/16 17:04 Aerobic Blood Culture - Preliminary Resulted Blood Peripheral NO GROWTH IN 2 DAYS 08/08/16 17:04 Anaerobic Blood Culture - Preliminary Resulted Blood Peripheral NO GROWTH IN 2 DAYS Imaging Last Impressions Chest X-Ray 08/09/16 0000 Signed Impressions: Service Date/Time: Tuesday, August 09, 2016 12:08 - CONCLUSION: Mild perihilar and basilar parenchymal opacities. Leonard Mckinney MD Wrist MRI 08/05/16 0000 Signed Impressions: Service Date/Time: Friday, August 05, 2016 11:25 - CONCLUSION: Superficial soft tissue edema and minimal extensor tenosynovitis. No evidence of abscess or osteomyelitis. Sidney Campuzano MD Cervical Spine MRI 08/05/16 Signed Impressions: Service Date/Time: Friday, August 05, 2016 10:59 - CONCLUSION: Cervical MRI within normal limits. Sidney Campuzano MD Wrist X-Ray 08/04/16 Signed Impressions: Service Date/Time: Thursday, August 04, 2016 16:18 - CONCLUSION: 1. Negative examination of the wrist. Jw Alvarez MD Gall Bladder Ultrasound 08/04/16 Signed Impressions: Service Date/Time: Thursday, August 04, 2016 15:29 - CONCLUSION: Mild, nonspecific wall thickening of the gallbladder. Negative sonographic Mullins's sign. Mildly enlarged liver. The rest of the right upper quadrant ultrasound is normal. Leonard Colvin MD Chest CT 08/04/16 Signed Impressions: Service Date/Time: Thursday, August 04, 2016 13:01 - CONCLUSION: Minimal bibasilar parenchymal changes, predominantly peribronchial thickening without pleural effusion, pneumothorax or alveolar consolidation. Truong Holly MD FACR Abdomen/Pelvis CT 08/04/16 Signed Impressions: Service Date/Time: Thursday, August 04, 2016 13:01 - CONCLUSION: I do not see colitis or other etiology for patient's abdominal pain. Truong Holly MD FACR Physical Exam CONSTITUTIONAL/GENERAL: This is an adequately nourished patient, in no apparent distress. TUBES/LINES/DRAINS: SKIN: No jaundice, rashes, EYES: Pupils equal and round and reactive. Extraocular motions intact. No scleral icterus. No injection or drainage. Fundi not examined. ENT: Hearing grossly normal. Nose without bleeding or purulent drainage. Throat without visible erythema, exudates, masses, or lesions. CARDIOVASCULAR: Regular tachycardia without murmurs, gallops, or rubs. No JVD. Peripheral pulses symmetric. RESPIRATORY/CHEST: Symmetric, unlabored respirations. Clear to auscultation. Breath sounds equal bilaterally. No wheezes, rales, or rhonchi. GASTROINTESTINAL: Abdomen soft, non-tender, nondistended. No hepato-splenomegaly , or palpable masses. No guarding. Bowel sounds present. GENITOURINARY: Without palpable bladder distension. Tyson catheter in place with clear yellow urine MUSCULOSKELETAL: Extremities without clubbing, cyanosis, or edema. NEUROLOGICAL: Awake and alert. Motor and sensory grossly within normal limits. Follows commands. Speech normal. Moves all extremities. PSYCHIATRIC: calm and coopertive Assessment & Plan Remarks sepsis (leukocytis, hypotesiotn ) - MSSA IVDU, ro endocarditis - 2 D echo ngative SIENA negative - persistent bacteremia Neck pain x few days - - non contrasted MRI wo e/o osteo/diskitis ARF, resolved New R side hip pain: resolved Pleuritic CP, new infiltates on the CXR - likley septic emboli from her TV endocarditis HIV dz - non comliant - cont oxacillin x 4- 6 wks from her first neg blood clx - can be sunstitute with cefazoline -fu P clx; if remain negative can get PICC tomorrow will cancell R hip MRI for now resume HIV care/HAART upon dc chk CD4 Cynthia Morfin MD August 10, 2016 13:23
--- NOTE | 2016-08-10 14:30 | HHI.PR ---
Subjective Remarks Follow up sepsis, bacteremia. The patient states that she is painful all over. States that she cannot hear out of her right ear. Objective Vitals Vital Signs Date Time Temp Pulse Resp B/P Pulse Ox O2 Delivery O2 Flow Rate FiO2 08/10/16 12:18 61 08/10/16 12:00 98.3 75 18 120/72 100 08/10/16 08:00 97.3 71 18 122/80 100 08/10/16 04:00 97.1 75 20 103/58 98 08/10/16 00:00 97.0 81 20 115/63 100 08/09/16 20:00 96.6 76 20 124/81 98 08/09/16 20:00 70 08/09/16 16:00 97.7 75 16 130/88 97 I/O 08/09/16 08/09/16 08/09/16 08/10/16 08/10/16 08/10/16 06:59 14:59 22:59 06:59 14:59 22:59 Intake Total 2520 ml 909 ml 1425 ml 1140 ml Output Total 3000 ml Balance -480 ml 909 ml 1425 ml 1140 ml Intake Oral 1000 ml 240 ml 480 ml 120 ml IV Total 1520 ml 669 ml 945 ml 1020 ml Output Urine Total 3000 ml # Voids 3 3 2 2 # Bowel Movements 0 1 0 Result Diagram: 08/09/16 1318 08/09/16 1318 Imaging Last Impressions Chest X-Ray 08/09/16 0000 Signed Impressions: Service Date/Time: Tuesday, August 09, 2016 12:08 - CONCLUSION: Mild perihilar and basilar parenchymal opacities. Leonard Mckinney MD Wrist MRI 08/05/16 0000 Signed Impressions: Service Date/Time: Friday, August 05, 2016 11:25 - CONCLUSION: Superficial soft tissue edema and minimal extensor tenosynovitis. No evidence of abscess or osteomyelitis. Sidney Campuzano MD Cervical Spine MRI 08/05/16 0000 Signed Impressions: Service Date/Time: Friday, August 05, 2016 10:59 - CONCLUSION: Cervical MRI within normal limits. Sidney Campuzano MD Wrist X-Ray 08/04/16 0000 Signed Impressions: Service Date/Time: Thursday, August 04, 2016 16:18 - CONCLUSION: 1. Negative examination of the wrist. Jw Alvarez MD Gall Bladder Ultrasound 08/04/16 0000 Signed Impressions: Service Date/Time: Thursday, August 04, 2016 15:29 - CONCLUSION: Mild, nonspecific wall thickening of the gallbladder. Negative sonographic Mullins's sign. Mildly enlarged liver. The rest of the right upper quadrant ultrasound is normal. Leonard Colvin MD Chest CT 08/04/16 0000 Signed Impressions: Service Date/Time: Thursday, August 04, 2016 13:01 - CONCLUSION: Minimal bibasilar parenchymal changes, predominantly peribronchial thickening without pleural effusion, pneumothorax or alveolar consolidation. Truong Holly MD FACR Abdomen/Pelvis CT 08/04/16 0000 Signed Impressions: Service Date/Time: Thursday, August 04, 2016 13:01 - CONCLUSION: I do not see colitis or other etiology for patient's abdominal pain. Truong Holly MD FACR Objective Remarks General: No acute distress. HEENT: Right ear tympanic membrane not erythematous or bulging; possible effusion. Heart: Regular rate and rhythm. No murmur. Lungs: Clear to auscultation bilaterally. No wheezes, rales, or rhonchi. Breathing is nonlabored. Abdomen: Soft, nontender, nondistended. Extremities: No lower extremity edema. Psych: Alert and oriented. Procedures central line placement Urinary Catheter: No Vascular Central Line Catheter: No A/P Problem List: (1) Septic shock ICD Code: A41.9 Status: Acute (2) Acute kidney failure ICD Code: N17.9 Status: Acute (3) Acute encephalopathy ICD Code: G93.40 Status: Acute (4) Probable infective endocarditis Status: Acute (5) Hyponatremia ICD Code: E87.1 Status: Resolved (6) MSSA bacteremia Status: Acute (7) Thrombocytopenia ICD Code: D69.6 Status: Chronic (8) Elevated liver enzymes ICD Code: R74.8 Status: Acute (9) Hepatitis C ICD Code: B19.20 Status: Acute (10) HIV (human immunodeficiency virus infection) ICD Code: Z21 Status: Chronic (11) Polysubstance dependence ICD Code: F19.20 Status: Acute (12) IVDU (intravenous drug user) ICD Code: F19.90 Status: Acute Assessment and Plan 1. Sepsis, bacteremia: Appreciate infectious disease recommendations. Continue oxacillin. Follow blood cultures. 2-D echocardiogram and SIENA did not show vegetation. 2. Acute encephalopathy: Improved. 3. History of IV drug abuse (methamphetamine, Dilaudid): Urine drug screen positive for cocaine, opiates, benzodiazepines. 4. Hepatitis C: Ultrasound shows enlarged liver, negative Mullins sign. 5. Acute kidney failure: Resolved. Secondary to dehydration. 6. HIV: Continue HAART medications per infectious disease. 7. Left wrist swelling: MRI negative for infection. 8. Pancytopenia: Secondary to sepsis. Monitor labs. 9. DVT prophylaxis: JULISSA Holliday. Sami Burns MD August 10, 2016 14:29
[2016-08-10] MEDS: hydrOXYzine HCL 25 MG TAB PO PRN (18:15)
[2016-08-11] VITALS (7 sets, daily range): BP systolic 109–132; BP diastolic 68–74; PULSE 71–81; RESP 18–20; TEMP 97.2–99; O2SAT 96–99
[2016-08-11] MEDS: OXACILLIN INJ 2 GM in SODIUM CHLORIDE 0.9% INJ 100 ML IV SCH ×6 (02:08→21:35)
[2016-08-11] MEDS: ONDANSETRON HCL 4 MG/2 ML VIAL IV PUSH PRN ×2 (02:14→11:11)
[2016-08-11] MEDS: ACETAMINOPHEN/HYDROcodone 325 MG/5 MG TAB PO PRN ×5 (02:15→21:36)
[2016-08-11] MEDS: CHLORHEXIDINE GLUCONATE 2 % 1 PACK (2 CLOTHS) TOP SCH (03:01)
[2016-08-11] MEDS: SODIUM CHLORIDE 0.9% FLUSH 10 ML FLUSH IV FLUSH SCH ×2 (07:39→21:33)
[2016-08-11] MEDS: EMTRICITABINE/TENOFOVIR 200 MG/300 MG TAB PO SCH (08:38)
[2016-08-11] MEDS: SODIUM CHLOR 0.9% 1000 ML INJ 1,000 ML IV SCH ×2 (08:54→22:45)
--- NOTE | 2016-08-11 13:18 | HHI.IDPN ---
Subjective Subjective Remarks afebrile SIENA negative no co Antibiotics oxacillin Allergies: Coded Allergies: Buspar (Verified Adverse Reaction, Severe, Irritability/Anxiety, 08/04/16) *MDRO Multi-Drug Resistant Organism (Verified Adverse Reaction, Unknown, ) MRSA (wrist wound) 11/2014; MRSA (blood & arm-08/2015)&(hand-01/21/16) MRSA PCR screen POSITIVE-08/04/16 Objective . Vital Signs Date Time Temp Pulse Resp B/P Pulse Ox O2 Delivery O2 Flow Rate FiO2 08/11/16 12:00 97.2 81 20 109/69 97 08/11/16 08:30 78 08/11/16 08:24 97.4 73 20 118/73 98 08/11/16 04:00 97.2 71 20 117/73 97 08/11/16 00:00 98.1 76 20 125/74 99 08/10/16 22:09 82 08/10/16 20:00 98.3 86 20 136/77 99 08/10/16 17:38 96.8 74 18 128/67 96 08/10/16 08/10/16 08/11/16 14:59 22:59 06:59 Intake Total 720 ml 1080 ml Balance 720 ml 1080 ml Intake Oral 720 ml 240 ml IV Total 840 ml # Voids 3 3 # Bowel Movements 0 0 . Laboratory Tests Test 08/09/16 13:18 White Blood Count 4.6 TH/MM3 Red Blood Count 3.67 MIL/MM3 Hemoglobin 11.0 GM/DL Hematocrit 31.2 % Mean Corpuscular Volume 85.1 FL Mean Corpuscular Hemoglobin 29.9 PG Mean Corpuscular Hemoglobin 35.1 % Concent Red Cell Distribution Width 12.6 % Platelet Count 213 TH/MM3 Mean Platelet Volume 8.4 FL Neutrophils (%) (Auto) 59.7 % Lymphocytes (%) (Auto) 23.9 % Monocytes (%) (Auto) 9.7 % Eosinophils (%) (Auto) 6.4 % Basophils (%) (Auto) 0.3 % Neutrophils # (Auto) 2.7 TH/MM3 Lymphocytes # (Auto) 1.1 TH/MM3 Monocytes # (Auto) 0.4 TH/MM3 Eosinophils # (Auto) 0.3 TH/MM3 Basophils # (Auto) 0.0 TH/MM3 CBC Comment DIFF FINAL Differential Comment Laboratory Tests Test 08/09/16 13:18 Sodium Level 142 MEQ/L Potassium Level 3.4 MEQ/L Chloride Level 106 MEQ/L Carbon Dioxide Level 28.4 MEQ/L Anion Gap 8 MEQ/L Blood Urea Nitrogen 10 MG/DL Creatinine 0.65 MG/DL Estimat Glomerular Filtration 115 ML/MIN Rate Random Glucose 79 MG/DL Calcium Level 8.7 MG/DL Human Chorionic Gonadotropin, LESS THAN 1 Quant MIU/ML Microbiology Date/Time Procedure Status Source Growth 08/08/16 17:04 Aerobic Blood Culture - Preliminary Resulted Blood Peripheral NO GROWTH IN 3 DAYS 08/08/16 17:04 Anaerobic Blood Culture - Preliminary Resulted Blood Peripheral NO GROWTH IN 3 DAYS 08/08/16 17:04 Aerobic Blood Culture - Preliminary Resulted Blood Peripheral NO GROWTH IN 3 DAYS 08/08/16 17:04 Anaerobic Blood Culture - Preliminary Resulted Blood Peripheral NO GROWTH IN 3 DAYS Imaging Last Impressions Chest X-Ray 08/09/16 0000 Signed Impressions: Service Date/Time: Tuesday, August 09, 2016 12:08 - CONCLUSION: Mild perihilar and basilar parenchymal opacities. Leonard Mckinney MD Wrist MRI 08/05/16 0000 Signed Impressions: Service Date/Time: Friday, August 05, 2016 11:25 - CONCLUSION: Superficial soft tissue edema and minimal extensor tenosynovitis. No evidence of abscess or osteomyelitis. Sidney Campuzano MD Cervical Spine MRI 08/05/16 0000 Signed Impressions: Service Date/Time: Friday, August 05, 2016 10:59 - CONCLUSION: Cervical MRI within normal limits. Sidney Campuzano MD Wrist X-Ray 08/04/16 0000 Signed Impressions: Service Date/Time: Thursday, August 04, 2016 16:18 - CONCLUSION: 1. Negative examination of the wrist. Jw Alvarez MD Gall Bladder Ultrasound 08/04/16 0000 Signed Impressions: Service Date/Time: Thursday, August 04, 2016 15:29 - CONCLUSION: Mild, nonspecific wall thickening of the gallbladder. Negative sonographic Mullins's sign. Mildly enlarged liver. The rest of the right upper quadrant ultrasound is normal. Leonard Colvin MD Chest CT 08/04/16 0000 Signed Impressions: Service Date/Time: Thursday, August 04, 2016 13:01 - CONCLUSION: Minimal bibasilar parenchymal changes, predominantly peribronchial thickening without pleural effusion, pneumothorax or alveolar consolidation. Truong Holly MD FACR Abdomen/Pelvis CT 08/04/16 0000 Signed Impressions: Service Date/Time: Thursday, August 04, 2016 13:01 - CONCLUSION: I do not see colitis or other etiology for patient's abdominal pain. Truong Holly MD FACR Physical Exam CONSTITUTIONAL/GENERAL: This is an adequately nourished patient, in no apparent distress. TUBES/LINES/DRAINS: SKIN: No jaundice, rashes, EYES: Pupils equal and round and reactive. No scleral icterus. ENT: Hearing grossly normal. Nose without bleeding or purulent drainage. Throat without visible erythema, exudates, masses, or lesions. CARDIOVASCULAR: Regular tachycardia without murmurs, gallops, or rubs. No JVD. Peripheral pulses symmetric. RESPIRATORY/CHEST: Symmetric, unlabored respirations. Clear to auscultation. Breath sounds equal bilaterally. No wheezes, rales, or rhonchi. GASTROINTESTINAL: Abdomen soft, non-tender, nondistended. MUSCULOSKELETAL: Extremities without clubbing, cyanosis, or edema. NEUROLOGICAL: Awake and alert.non focal PSYCHIATRIC: calm and coopertive Assessment & Plan Remarks sepsis (leukocytis, hypotesiotn \ - MSSA IVDU, probably endocarditis based onhigh grade bacteremia, secondary bacteriuria and pulmonary smx/findings cw septic emboli - 2 D echo ngative SIENA negative - bacteremia resolved Neck pain x few days - - non contrasted MRI wo e/o osteo/diskitis ARF, resolved New R side hip pain: resolved Pleuritic CP, new infiltates on the CXR - likley septic emboli from her TV endocarditis HIV dz - non comliant - cont oxacillin x 4- 6 wks from her first neg blood clx - will switch to cefazoline to complete abx -we'll get can get PICC resume HIV care/HAART upon dc: tivicay + Truvada fu CD4 Pt can be d/c to complete the Rx as o/p She needs to sign agreement about PICC use only for IV abx Cynthia Morfin MD August 11, 2016 13:18
--- NOTE | 2016-08-11 13:20 | HHI.FF ---
Infusion Therapy Location of Infusion Therapy: [facility] IV Infusion Order Patient Information Patient Weight 62 kg Diagnosis: Diagnosis MSSA bacteremia, endocarditis Coded Allergies: Buspar (Verified Adverse Reaction, Severe, Irritability/Anxiety, 08/04/16) *MDRO Multi-Drug Resistant Organism (Verified Adverse Reaction, Unknown, ) MRSA (wrist wound) 11/2014; MRSA (blood & arm-08/2015)&(hand-01/21/16) MRSA PCR screen POSITIVE-08/04/16 Administer Medication Cefazolin 2 grams IV q 8 hours Start Treatment: August 11, 2016 Stop Treatment: Sep 11, 2016 Additional Information Venous access: PICC Line Additional Instructions [x] Peripheral flush and dressing changes per protocol [x] Implanted port and central meter and service line inspector: * Implanted port: 10 ml Normal Saline followed by 5 ml Heparin 100 units/ml Heparin flush after each use and monthly to maintain. [] May leave port accessed during therapy. [] May leave peripheral site accessed for duration of therapy. [x] If patient has SOB or respiratory distress, check oxygen saturation. If less than 90% or clinical signs of respiratory distress, administer oxygen at 2 L/min. via nasal cannula and notify physician. [x] Anaphylaxis/Reaction orders: * Stop infusion. * Keep IV line open with saline flush. * Notify physician. * Monitor vital signs every 15 minutes until symptoms resolve. * Check Oxygen saturation; Oxygen at 2 L/min. via nasal cannula if less than 90% or clinical signs of respiratory distress. * Administer diphenhydramine (Benadryl) 25 mg IV STAT, (unless patient has received as pre-med). May repeat once, if necessary. * Solu-Cortef 250 mg IVP over 30-60 seconds, use 100 mg vials for each dissolution. * Epinephrine (1mg/1 ml) 0.3 mg subcutaneously or IVP now with any signs of respiratory distress. * Check with physician for new additional pre-med orders if patient is re- challenged or re-treated. [x] May remove PICC line when treatment complete, after confirming with Physician. [x] If the patient is admitted to the hospital, the ED, or transferred via [facility] , complete transfer form including medication reconciliation order sheet. Laboratory Tests Weekly Labs: CBC w/diff, Creatinine, LFT's (Hepatic function test) Cynthia Morfin MD August 11, 2016 13:20
[2016-08-11] MEDS ORDERED: CEFA2SOL IV (13:26)
[2016-08-11] MEDS ORDERED: EPIN1INJ21 SQ (13:26)
[2016-08-11] MEDS ORDERED: EPIN1INJ21 IV PUSH (13:26)
[2016-08-11] MEDS ORDERED: SOLU250I IV PUSH (13:26)
[2016-08-11] MEDS: DOLUTEGRAVIR SODIUM 50 MG TAB PO SCH (14:00)
[2016-08-11] MEDS ORDERED: ALPRAZolam 1 MG TAB PO ONE (14:30)
[2016-08-11 23:52] LABS: CD4/CD8 RATIO 0.9 (0.86-5.00)
--- NOTE | 2016-08-11 23:56 | HHI.PR ---
Subjective Remarks Patient seen the morning of 08/11. Patient initially agreed to PICC line, however subsequently refused. Later informed by nursing that her mother is moving, and the patient no longer has a place to stay. We'll need to reassess tomorrow. Objective Vital Signs Date Time Temp Pulse Resp B/P Pulse Ox O2 Delivery O2 Flow Rate FiO2 08/11/16 20:30 98.2 80 18 132/71 96 08/11/16 16:16 99.0 78 20 117/68 99 08/11/16 12:00 97.2 81 20 109/69 97 08/11/16 08:30 78 08/11/16 08:24 97.4 73 20 118/73 98 08/11/16 04:00 97.2 71 20 117/73 97 08/11/16 00:00 98.1 76 20 125/74 99 I/O 08/10/16 08/10/16 08/10/16 08/11/16 08/11/16 08/11/16 07:00 15:00 23:00 07:00 15:00 23:00 Intake Total 1140 ml 720 ml 1080 ml 1070 ml 1200 ml Balance 1140 ml 720 ml 1080 ml 1070 ml 1200 ml Intake Oral 120 ml 720 ml 240 ml 480 ml 1200 ml IV Total 1020 ml 840 ml 590 ml # Voids 2 3 3 3 1 # Bowel Movements 0 0 0 2 0 Result Diagram: 08/09/16 1318 08/09/16 1318 Objective Remarks GENERAL: patient sitting up in bed. Appears comfortable. Alert and oriented 3. SKIN: Warm and dry. HEAD: Normocephalic. EYES: No scleral icterus. No injection or drainage. NECK: Supple, trachea midline. No JVD. CARDIOVASCULAR: Regular rate and rhythm without murmurs, gallops, or rubs. RESPIRATORY: Breath sounds equal bilaterally. No accessory muscle use. GASTROINTESTINAL: Abdomen soft, non-tender, nondistended. MUSCULOSKELETAL: No cyanosis, or edema. BACK: Nontender without obvious deformity. No CVA tenderness. A/P Assessment and Plan ==== 08/11/16 PICC line placed. Long discussion with infectious disease. Later informed that patient is now homeless and does not have a place to stay. //Sepsis, staph bacteremia: -Positive blood and urine cultures from admission. Repeat blood culture 08/08 negative to date. -2-D echocardiogram and SIENA did not show vegetation. -Continue oxacillin as per infectious disease. PICC line ordered. //Acute encephalopathy: Appears resolved. // History of IV drug abuse (methamphetamine, Dilaudid): Urine drug screen positive for cocaine, opiates, benzodiazepines. -Counseling provided. Risks of continued IV drug use, which include and disability discussed. // Hepatitis C: Ultrasound shows enlarged liver, negative Mullins sign. We'll need to follow-up with primary care as outpatient. Appreciate infectious disease assistance. // Acute kidney failure: Resolved. Secondary to dehydration. // HIV: Continue HAART medications per infectious disease. // Left wrist swelling: MRI negative for infection. Appears resolved. // Pancytopenia: Secondary to sepsis. Monitor labs 08/12 ordered. // DVT prophylaxis: MAZINsJULISSA. Discharge Planning patient will need IV antibiotics to complete treatment course for bacteremia. PICC line has been placed. -Patient reports she is homeless. Difficult discharge. Appreciate case management assistance. Francis Jane MD August 11, 2016 23:56
[2016-08-12 01:00] VITALS: BP 125/65; PULSE 88; RESP 20; TEMP 97.7; O2SAT 98
[2016-08-12] MEDS: ACETAMINOPHEN/HYDROcodone 325 MG/5 MG TAB PO PRN ×3 (02:37→11:46)
[2016-08-12] MEDS: OXACILLIN INJ 2 GM in SODIUM CHLORIDE 0.9% INJ 100 ML IV SCH ×6 (02:38→23:11)
[2016-08-12] MEDS: CHLORHEXIDINE GLUCONATE 2 % 1 PACK (2 CLOTHS) TOP SCH (04:00)
[2016-08-12 05:50] VITALS: BP 115/64; PULSE 84; RESP 21; TEMP 98; O2SAT 99
[2016-08-12 08:46] VITALS: BP 115/67; PULSE 69; RESP 18; TEMP 96.4; O2SAT 100
[2016-08-12] MEDS: SODIUM CHLORIDE 0.9% FLUSH 10 ML FLUSH IV FLUSH SCH ×2 (08:59→19:39)
[2016-08-12] MEDS: ONDANSETRON HCL 4 MG/2 ML VIAL IV PUSH PRN (08:59)
[2016-08-12] MEDS: EMTRICITABINE/TENOFOVIR 200 MG/300 MG TAB PO SCH (09:03)
[2016-08-12] MEDS: DOLUTEGRAVIR SODIUM 50 MG TAB PO SCH (09:03)
[2016-08-12] MEDS ORDERED: SODIUM CHLORIDE 0.9% FLUSH 10 ML FLUSH IV FLUSH PRN (11:45)
--- NOTE | 2016-08-12 11:51 | RADRPT ---
EXAM DATE/TIME: 08/12/2016 11:07 [facility] COMPARISON: CHEST SINGLE AP, August 09, 2016, 12:08. INDICATIONS : Evaluate for PICC line placement. MEDICAL HISTORY : HIV. Hepatitis C. SURGICAL HISTORY : Tonsillectomy. Hernia repair. ENCOUNTER: Subsequent ACUITY: 1 day PAIN SCORE: 0/10 LOCATION: Bilateral chest FINDINGS: Portable AP view of the chest demonstrates right upper extremity PICC distal tip in the SVC. No other acute finding is seen. CONCLUSION: PICC distal tip in appropriate position in the SVC. Leonard Canas MD on August 12, 2016 at 11:49 Board Certified Radiologist. This report was verified electronically.
[2016-08-12 12:08] VITALS: BP 116/68; PULSE 82; RESP 19; TEMP 98.3; O2SAT 100
[2016-08-12] MEDS: SODIUM CHLOR 0.9% 1000 ML INJ 1,000 ML IV SCH (13:04)
[2016-08-12 16:23] VITALS: BP 134/82; PULSE 71; RESP 16; TEMP 97.8; O2SAT 99
[2016-08-12] MEDS: ALPRAZolam 0.5 MG TAB PO PRN (19:29)
[2016-08-12 19:47] LABS: AUTOMATED NEUTROPHIL # 4.8 TH/MM3 (1.8-7.7); BASOPHIL % 0.3 % (0.0-2.0); EOSINOPHIL # 0.3 TH/MM3 (0-0.4); EOSINOPHIL % 3.6 % (0.0-4.0); HEMATOCRIT 33.3 % (35.0-46.0); HEMO FLAGS DIFF FINAL; LYMPH % 20.9 % (9.0-44.0); LYMPHOCYTE # 1.5 TH/MM3 (1.0-4.8); MEAN CELL VOLUME 86.3 FL (80.0-100.0); MEAN CORPUSCULAR HEMOGLOBIN 29.4 PG (27.0-34.0); MEAN CORPUSCULAR HGB CONC 34.1 % (32.0-36.0); NEUT % 67.2 % (16.0-70.0); PLATELET COUNT 448 TH/MM3 (150-450); RED BLOOD COUNT 3.86 MIL/MM3 (4.00-5.30); RED CELL DISTRIBUTION WIDTH 13.2 % (11.6-17.2); WHITE BLOOD COUNT 7.1 TH/MM3 (4.0-11.0)
[2016-08-12] MEDS: oxyCODONE/ACETAMINOPHEN 7.5 MG/325 MG TAB PO PRN (19:47)
[2016-08-12 20:00] VITALS: BP 130/78; PULSE 84; RESP 20; TEMP 99.7; O2SAT 100
[2016-08-12 20:30] LABS: BICARBONATE 27.2 MEQ/L (21.0-32.0); POTASSIUM 3.8 MEQ/L (3.5-5.1)
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
[2016-08-13] VITALS: BP 107/59; PULSE 72; RESP 20; TEMP 97.1; O2SAT 99
[2016-08-13] MEDS: SODIUM CHLOR 0.9% 1000 ML INJ 1,000 ML IV SCH ×2 (02:46→18:06)
[2016-08-13] MEDS: CHLORHEXIDINE GLUCONATE 2 % 1 PACK (2 CLOTHS) TOP SCH (02:48)
[2016-08-13] MEDS: OXACILLIN INJ 2 GM in SODIUM CHLORIDE 0.9% INJ 100 ML IV SCH ×5 (02:48→22:00)
[2016-08-13 04:00] VITALS: BP 122/66; PULSE 76; RESP 20; TEMP 97.7; O2SAT 100
[2016-08-13 08:00] VITALS: BP 120/79; PULSE 89; RESP 20; TEMP 98.7; O2SAT 95
[2016-08-13] MEDS: SODIUM CHLORIDE 0.9% FLUSH 10 ML FLUSH IV FLUSH SCH ×3 (08:07→20:10)
[2016-08-13] MEDS: EMTRICITABINE/TENOFOVIR 200 MG/300 MG TAB PO SCH (08:08)
[2016-08-13] MEDS: DOLUTEGRAVIR SODIUM 50 MG TAB PO SCH (08:08)
[2016-08-13] MEDS: oxyCODONE/ACETAMINOPHEN 7.5 MG/325 MG TAB PO PRN ×3 (08:48→22:26)
[2016-08-13 09:08] LABS: AMPHETAMINE, URINE NEG (NEG); BARBITURATES, URINE NEG (NEG); COCAINE, URINE NEG (NEG)
[2016-08-13 12:19] VITALS: BP 120/62; PULSE 83; RESP 18; TEMP 99.2; O2SAT 100
[2016-08-13 16:13] VITALS: BP 121/72; PULSE 77; RESP 16; TEMP 98.4; O2SAT 100
[2016-08-13 20:17] VITALS: BP 108/66; PULSE 94; RESP 20; TEMP 98.5; O2SAT 99
[2016-08-13] MEDS: ALPRAZolam 0.5 MG TAB PO PRN (20:55)
[2016-08-13] MEDS: hydrOXYzine HCL 25 MG TAB PO PRN (20:55)
[2016-08-13] MEDS: ONDANSETRON HCL 4 MG/2 ML VIAL IV PUSH PRN (22:50)
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
[2016-08-14 00:22] VITALS: BP 115/71; PULSE 76; RESP 18; TEMP 96.7; O2SAT 100
[2016-08-14] MEDS: OXACILLIN INJ 2 GM in SODIUM CHLORIDE 0.9% INJ 100 ML IV SCH ×3 (02:11→09:30)
[2016-08-14] MEDS: CHLORHEXIDINE GLUCONATE 2 % 1 PACK (2 CLOTHS) TOP SCH (03:24)
[2016-08-14 04:06] VITALS: BP 101/58; PULSE 64; RESP 18; TEMP 97.2; O2SAT 99
[2016-08-14] MEDS: SODIUM CHLOR 0.9% 1000 ML INJ 1,000 ML IV SCH (08:24)
[2016-08-14 08:45] VITALS: BP 100/51; PULSE 85; RESP 20; TEMP 97.1; O2SAT 99
[2016-08-14] MEDS: SODIUM CHLORIDE 0.9% FLUSH 10 ML FLUSH IV FLUSH SCH ×2 (09:00→09:29)
[2016-08-14] MEDS: DOLUTEGRAVIR SODIUM 50 MG TAB PO SCH (09:28)
[2016-08-14] MEDS: EMTRICITABINE/TENOFOVIR 200 MG/300 MG TAB PO SCH (09:28)
[2016-08-14 11:30] VITALS: BP 137/81; PULSE 94; RESP 22; TEMP 98.7; O2SAT 100
--- NOTE | 2016-08-14 23:37 | HHI.PR ---
Subjective Remarks Patient seen this morning around 10:30 AM. Sleeping, wakes up for exam. She reports that pain is controlled... Nursing reports she does not receive any pain medications since yesterday. Nursing reports drugs/paraphernalia found in room last night. Patient reports that this was not her paraphernalia, from visitors. Visitors restricted. Later informed after the fact the patient has left AGAINST MEDICAL ADVICE, and that PICC line was removed prior to discharge. Objective Vital Signs Date Time Temp Pulse Resp B/P Pulse Ox O2 Delivery O2 Flow Rate FiO2 08/14/16 11:30 98.7 94 22 137/81 100 08/14/16 08:45 97.1 85 20 100/51 99 08/14/16 04:06 97.2 64 18 101/58 99 08/14/16 00:22 96.7 76 18 115/71 100 08/13/16 23:26 18 I/O 08/13/16 08/13/16 08/13/16 08/14/16 08/14/16 08/14/16 07:00 15:00 23:00 07:00 15:00 23:00 Intake Total 240 ml 1720 ml Balance 240 ml 1720 ml Intake Oral 240 ml 720 ml IV Total 1000 ml # Voids 2 2 2 # Bowel Movements 0 0 0 Result Diagram: 08/12/16192908/12/161929 Imaging Last Impressions Chest X-Ray 08/12/16 0000 Signed Impressions: Service Date/Time: Friday, August 12, 2016 11:07 - CONCLUSION: PICC distal tip in appropriate position in the SVC. Leonard Canas MD Wrist MRI 08/05/16 0000 Signed Impressions: Service Date/Time: Friday, August 05, 2016 11:25 - CONCLUSION: Superficial soft tissue edema and minimal extensor tenosynovitis. No evidence of abscess or osteomyelitis. Sidney Campuzano MD Cervical Spine MRI 08/05/16 0000 Signed Impressions: Service Date/Time: Friday, August 05, 2016 10:59 - CONCLUSION: Cervical MRI within normal limits. Sidney Campuzano MD Wrist X-Ray 08/04/16 0000 Signed Impressions: Service Date/Time: Thursday, August 04, 2016 16:18 - CONCLUSION: 1. Negative examination of the wrist. Jw Alvarez MD Gall Bladder Ultrasound 08/04/16 0000 Signed Impressions: Service Date/Time: Thursday, August 04, 2016 15:29 - CONCLUSION: Mild, nonspecific wall thickening of the gallbladder. Negative sonographic Mullins's sign. Mildly enlarged liver. The rest of the right upper quadrant ultrasound is normal. Leonard Colvin MD Chest CT 08/04/16 0000 Signed Impressions: Service Date/Time: Thursday, August 04, 2016 13:01 - CONCLUSION: Minimal bibasilar parenchymal changes, predominantly peribronchial thickening without pleural effusion, pneumothorax or alveolar consolidation. Truong Holly MD FACR Abdomen/Pelvis CT 08/04/16 0000 Signed Impressions: Service Date/Time: Thursday, August 04, 2016 13:01 - CONCLUSION: I do not see colitis or other etiology for patient's abdominal pain. Truong Holly MD FACR Objective Remarks GENERAL: patient sleeping, wakes up for exam. Appears comfortable. Alert and oriented 3. Patient examined with nurse present. SKIN: Warm and dry.PICC line in place right upper extremity at the time of exam. No surrounding erythema. HEAD: Normocephalic. EYES: No scleral icterus. No injection or drainage. NECK: Supple, trachea midline. No JVD. CARDIOVASCULAR: Regular rate and rhythm without murmurs, gallops, or rubs. RESPIRATORY: Breath sounds equal bilaterally. No accessory muscle use. GASTROINTESTINAL: Abdomen soft, non-tender, nondistended. MUSCULOSKELETAL: No cyanosis, or edema. BACK: Nontender without obvious deformity. No CVA tenderness. A/P Assessment and Plan ==== 08/14/16 High suspicion for patient using outside drugs. Drugs and paraphernalia found in room. Outside visitation limited. Patient unfortunately left AGAINST MEDICAL ADVICE. //Sepsis, staph bacteremia: -Positive blood and urine cultures from admission. Repeat blood culture 08/08 negative to date. -2-D echocardiogram and SIENA did not show vegetation. -Continue oxacillin as per infectious disease. PICC line removed prior to AMA discharge. Recommend patient seek treatment at any hospital for continuation of IV antibiotics to complete treatment course. //Acute encephalopathy: Appears resolved. // History of IV drug abuse (methamphetamine, Dilaudid): Urine drug screen positive for cocaine, opiates, benzodiazepines. -Counseling provided. Risks of continued IV drug use, which include and disability discussed. -Throughout hospitalization patient has conveyed understanding of risks associated with continued use, as well as importance of continued antibiotic treatment. //Pain management. Patient offered urinalysis which was negative for opioids suspected being on opioids. No clinical evidence for pain or opioid withdrawal. // Hepatitis C: Ultrasound shows enlarged liver, negative Mullins sign. We'll need to follow-up with primary care as outpatient. Appreciate infectious disease assistance. // Acute kidney failure: Resolved. Secondary to dehydration. // HIV: Continue HAART medications per infectious disease. // Left wrist swelling: MRI negative for infection. Appears resolved. // Pancytopenia: Secondary to sepsis. Hemoglobin appears stable at 11.3. // DVT prophylaxis: SCDs, JULISSA bourgeois. Discharge Planning patient will need IV antibiotics to complete treatment course for bacteremia. PICC line was removed prior to AGAINST MEDICAL ADVICE discharge. Francis Jane MD August 14, 2016 23:37
--- NOTE | 2016-08-14 23:43 | HHI.DS ---
Discharge Summary Admission Date August 04, 2016 at 08:54 Discharge Date: August 14, 2016 Admitting Diagnosis Sepsis, hypotension, HIV, Hep C (1) Septic shock ICD Code: A41.9 Diagnosis: Principal (2) Acute kidney failure ICD Code: N17.9 Diagnosis: Principal (3) Acute encephalopathy ICD Code: G93.40 Diagnosis: Principal (4) Probable infective endocarditis Diagnosis: Principal (5) Hyponatremia ICD Code: E87.1 Diagnosis: Principal (6) MSSA bacteremia Diagnosis: Principal (7) Thrombocytopenia ICD Code: D69.6 Diagnosis: Principal (8) Elevated liver enzymes ICD Code: R74.8 Diagnosis: Principal (9) Hepatitis C ICD Code: B19.20 Diagnosis: Secondary (10) HIV (human immunodeficiency virus infection) ICD Code: Z21 Diagnosis: Secondary (11) Polysubstance dependence ICD Code: F19.20 Diagnosis: Secondary (12) IVDU (intravenous drug user) ICD Code: F19.90 Diagnosis: Secondary Procedures central line placement Brief History - From Admission Patient is a 21-year-old female with past medical history significant for 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 She denies any fevers. She also complains about severe left-sided pleuritic chest pain and abdominal pain, and also cough with yellow sputum. Apparently had been off her HIV meds for 5 days. Patient states that recently viral load was undetectable and CD4 count was high even though she does not know how much. Review of records indicate that patient had MRSA endocarditis in the past. I evaluated the patient in the emergency department. Patient is hypotensive tachycardic in moderate to severe distress due to pain. Patient received 2 L normal saline bolus but remained hypotensive, Levophed had been started and now at 5 mcg/m. Patient was emergently moved to the ICU and I placed a right IJ central line. Additional 3 L normal saline bolus been ordered. WBC 31.2 with 36 % bands. Platelet count is 87, sodium is 128 BUN 37 with creatinine 4 (prev creat normal). Bilirubin is 4.4. Renal failure is acute due to severe sepsis and dehydration. She admits to injecting crystal meth IV to the left wrist, patient has tender swelling to the left wrist region. Otherwise she is a very poor historian and difficult to get history. CBC/BMP: 08/12/16192908/12/161929 Significant Findings Laboratory Tests Test 08/12/16 19:30 Red Blood Count 3.86 MIL/MM3 (4.00-5.30) Hemoglobin 11.3 GM/DL (11.6-15.3) Hematocrit 33.3 % (35.0-46.0) Estimat Glomerular Filtration 73 ML/MIN (>89) Rate Imaging Last Impressions Chest X-Ray 08/12/16 0000 Signed Impressions: Service Date/Time: Friday, August 12, 2016 11:07 - CONCLUSION: PICC distal tip in appropriate position in the SVC. Leonard Canas MD Wrist MRI 08/05/16 0000 Signed Impressions: Service Date/Time: Friday, August 05, 2016 11:25 - CONCLUSION: Superficial soft tissue edema and minimal extensor tenosynovitis. No evidence of abscess or osteomyelitis. Sidney Campuzano MD Cervical Spine MRI 08/05/16 0000 Signed Impressions: Service Date/Time: Friday, August 05, 2016 10:59 - CONCLUSION: Cervical MRI within normal limits. Sidney Campuzano MD Wrist X-Ray 08/04/16 0000 Signed Impressions: Service Date/Time: Thursday, August 04, 2016 16:18 - CONCLUSION: 1. Negative examination of the wrist. Jw Alvarez MD Gall Bladder Ultrasound 08/04/16 0000 Signed Impressions: Service Date/Time: Thursday, August 04, 2016 15:29 - CONCLUSION: Mild, nonspecific wall thickening of the gallbladder. Negative sonographic Mullins's sign. Mildly enlarged liver. The rest of the right upper quadrant ultrasound is normal. Leonard Colvin MD Chest CT 08/04/16 0000 Signed Impressions: Service Date/Time: Thursday, August 04, 2016 13:01 - CONCLUSION: Minimal bibasilar parenchymal changes, predominantly peribronchial thickening without pleural effusion, pneumothorax or alveolar consolidation. Truong Holly MD FACR Abdomen/Pelvis CT 08/04/16 0000 Signed Impressions: Service Date/Time: Thursday, August 04, 2016 13:01 - CONCLUSION: I do not see colitis or other etiology for patient's abdominal pain. Truong Holly MD FACR PE at Discharge General: No acute distress. HEENT: Right ear tympanic membrane not erythematous or bulging; possible effusion. Heart: Regular rate and rhythm. No murmur. Lungs: Clear to auscultation bilaterally. No wheezes, rales, or rhonchi. Breathing is nonlabored. Abdomen: Soft, nontender, nondistended. Extremities: No lower extremity edema. Psych: Alert and oriented. 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 She denies any fevers. She also complains about severe left-sided pleuritic chest pain and abdominal pain, and also cough with yellow sputum. Apparently had been off her HIV meds for 5 days. Patient states that recently viral load was undetectable and CD4 count was high even though she does not know how much. Review of records indicate that patient had MRSA endocarditis in the past. I evaluated the patient in the emergency department. Patient is hypotensive tachycardic in moderate to severe distress due to pain. Patient received 2 L normal saline bolus but remained hypotensive, Levophed had been started and now at 5 mcg/m. Patient was emergently moved to the ICU and I placed a right IJ central line. Additional 3 L normal saline bolus been ordered. WBC 31.2 with 36 % bands. Platelet count is 87, sodium is 128 BUN 37 with creatinine 4 (prev creat normal). Bilirubin is 4.4. Renal failure is acute due to severe sepsis and dehydration. She admits to injecting crystal meth IV to the left wrist, patient has tender swelling to the left wrist region. Otherwise she is a very poor historian and difficult to get history. 08/05: Remains critically ill but improving. Currently on 4 mics per minute of Levophed. Urine output more than 8 L since admission. White count improved to 13.7, creatinine 2.15 08/06: Clinically improving, UO >4 L. labs pending. ABX narrowed to Oxacillin by ID due to MSSA in blood. SIENA possible tomorrow Hospital Course patient is treated with IV antibiotics as per infectious disease, with improvement. She is to continue IV antibiotics. She was found to have GERD paraphernalia in her room, and was moved across nursing station. She decided to leave AMA. ==== 08/14/16 High suspicion for patient using outside drugs. Drugs and paraphernalia found in room. Outside visitation limited. Patient unfortunately left AGAINST MEDICAL ADVICE. //Sepsis, staph bacteremia: -Positive blood and urine cultures from admission. Repeat blood culture 08/08 negative to date. -2-D echocardiogram and SIENA did not show vegetation. -Continue oxacillin as per infectious disease. PICC line removed prior to AMA discharge. Recommend patient seek treatment at any hospital for continuation of IV antibiotics to complete treatment course. //Acute encephalopathy: Appears resolved. // History of IV drug abuse (methamphetamine, Dilaudid): Urine drug screen positive for cocaine, opiates, benzodiazepines. -Counseling provided. Risks of continued IV drug use, which include and disability discussed. -Throughout hospitalization patient has conveyed understanding of risks associated with continued use, as well as importance of continued antibiotic treatment. //Pain management. Patient offered urinalysis which was negative for opioids suspected being on opioids. No clinical evidence for pain or opioid withdrawal. // Hepatitis C: Ultrasound shows enlarged liver, negative Mullins sign. We'll need to follow-up with primary care as outpatient. Appreciate infectious disease assistance. // Acute kidney failure: Resolved. Secondary to dehydration. // HIV: Continue HAART medications per infectious disease. // Left wrist swelling: MRI negative for infection. Appears resolved. // Pancytopenia: Secondary to sepsis. Hemoglobin appears stable at 11.3. // DVT prophylaxis: SCDs, JULISSA coxe. Discharge Planning patient will need IV antibiotics to complete treatment course for bacteremia. PICC line was removed prior to AGAINST MEDICAL ADVICE discharge. Pt Condition on Discharge: Stable Discharge Time: <= 30 minutes Discharge Instructions DIET: Follow Instructions for: As Tolerated, No Restrictions Francis Jane MD August 14, 2016 23:43
--- NOTE | 2016-08-20 21:20 | HHI.DS ---
Discharge Summary Admission Date August 04, 2016 at 08:54 Discharge Date: August 14, 2016 Admitting Diagnosis Sepsis, hypotension, HIV, Hep C (1) Septic shock ICD Code: A41.9 Diagnosis: Principal (2) Acute kidney failure ICD Code: N17.9 Diagnosis: Principal (3) Acute encephalopathy ICD Code: G93.40 Diagnosis: Principal (4) Probable infective endocarditis Diagnosis: Principal (5) Hyponatremia ICD Code: E87.1 Diagnosis: Principal (6) MSSA bacteremia Diagnosis: Principal (7) Thrombocytopenia ICD Code: D69.6 Diagnosis: Principal (8) Elevated liver enzymes ICD Code: R74.8 Diagnosis: Principal (9) Hepatitis C ICD Code: B19.20 Diagnosis: Secondary (10) HIV (human immunodeficiency virus infection) ICD Code: Z21 Diagnosis: Secondary (11) Polysubstance dependence ICD Code: F19.20 Diagnosis: Secondary (12) IVDU (intravenous drug user) ICD Code: F19.90 Diagnosis: Secondary Procedures central line placement. 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 She denies any fevers. She also complains about severe left-sided pleuritic chest pain and abdominal pain, and also cough with yellow sputum. Apparently had been off her HIV meds for 5 days. Patient states that recently viral load was undetectable and CD4 count was high even though she does not know how much. Review of records indicate that patient had MRSA endocarditis in the past. I evaluated the patient in the emergency department. Patient is hypotensive tachycardic in moderate to severe distress due to pain. Patient received 2 L normal saline bolus but remained hypotensive, Levophed had been started and now at 5 mcg/m. Patient was emergently moved to the ICU and I placed a right IJ central line. Additional 3 L normal saline bolus been ordered. WBC 31.2 with 36 % bands. Platelet count is 87, sodium is 128 BUN 37 with creatinine 4 (prev creat normal). Bilirubin is 4.4. Renal failure is acute due to severe sepsis and dehydration. She admits to injecting crystal meth IV to the left wrist, patient has tender swelling to the left wrist region. Otherwise she is a very poor historian and difficult to get history. Imaging Last Impressions Chest X-Ray 08/12/16 Signed Impressions: Service Date/Time: Friday, August 12, 2016 11:07 - CONCLUSION: PICC distal tip in appropriate position in the SVC. Leonard Canas MD Wrist MRI 08/05/16 Signed Impressions: Service Date/Time: Friday, August 05, 2016 11:25 - CONCLUSION: Superficial soft tissue edema and minimal extensor tenosynovitis. No evidence of abscess or osteomyelitis. Sidney Campuzano MD Cervical Spine MRI 08/05/16 Signed Impressions: Service Date/Time: Friday, August 05, 2016 10:59 - CONCLUSION: Cervical MRI within normal limits. Sidney Campuzano MD Wrist X-Ray 08/04/16 Signed Impressions: Service Date/Time: Thursday, August 04, 2016 16:18 - CONCLUSION: 1. Negative examination of the wrist. Jw Alvarez MD Gall Bladder Ultrasound 08/04/16 Signed Impressions: Service Date/Time: Thursday, August 04, 2016 15:29 - CONCLUSION: Mild, nonspecific wall thickening of the gallbladder. Negative sonographic Mullisn's sign. Mildly enlarged liver. The rest of the right upper quadrant ultrasound is normal. Leonard Colvin MD Chest CT 08/04/16 Signed Impressions: Service Date/Time: Thursday, August 04, 2016 13:01 - CONCLUSION: Minimal bibasilar parenchymal changes, predominantly peribronchial thickening without pleural effusion, pneumothorax or alveolar consolidation. Truong Holly MD FACR Abdomen/Pelvis CT 08/04/16 Signed Impressions: Service Date/Time: Thursday, August 04, 2016 13:01 - CONCLUSION: I do not see colitis or other etiology for patient's abdominal pain. Truong Holly MD FACR PE at Discharge General: No acute distress. HEENT: Right ear tympanic membrane not erythematous or bulging; possible effusion. Heart: Regular rate and rhythm. No murmur. Lungs: Clear to auscultation bilaterally. No wheezes, rales, or rhonchi. Breathing is nonlabored. Abdomen: Soft, nontender, nondistended. Extremities: No lower extremity edema. Psych: Alert and oriented. 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 She denies any fevers. She also complains about severe left-sided pleuritic chest pain and abdominal pain, and also cough with yellow sputum. Apparently had been off her HIV meds for 5 days. Patient states that recently viral load was undetectable and CD4 count was high even though she does not know how much. Review of records indicate that patient had MRSA endocarditis in the past. I evaluated the patient in the emergency department. Patient is hypotensive tachycardic in moderate to severe distress due to pain. Patient received 2 L normal saline bolus but remained hypotensive, Levophed had been started and now at 5 mcg/m. Patient was emergently moved to the ICU and I placed a right IJ central line. Additional 3 L normal saline bolus been ordered. WBC 31.2 with 36 % bands. Platelet count is 87, sodium is 128 BUN 37 with creatinine 4 (prev creat normal). Bilirubin is 4.4. Renal failure is acute due to severe sepsis and dehydration. She admits to injecting crystal meth IV to the left wrist, patient has tender swelling to the left wrist region. Otherwise she is a very poor historian and difficult to get history. 08/05: Remains critically ill but improving. Currently on 4 mics per minute of Levophed. Urine output more than 8 L since admission. White count improved to 13.7, creatinine 2.15 08/06: Clinically improving, UO >4 L. labs pending. ABX narrowed to Oxacillin by ID due to MSSA in blood. SIENA possible tomorrow Hospital Course Patient is treated with broad-spectrum antibiotics. Blood cultures grew out staph aureus from 4 out of 4 blood cultures on 08/04/16. Repeat blood cultures returned with staph aureus 1 out of 4 cultures. Infectious diseases consulted, recommended continued cefazolin 2 g every 8 hours until September 11, 2016. Patient with multiple visitors. Drug paraphilia was found. Patient was moved to a room across her nursing station, for her own safety. Patient left AGAINST MEDICAL ADVICE on 08/14/16. For problem-based summary from most recent progress note, please see below. ==== 08/14/16 High suspicion for patient using outside drugs. Drugs and paraphernalia found in room. Outside visitation limited. Patient unfortunately left AGAINST MEDICAL ADVICE. //Sepsis, staph bacteremia: -Positive blood and urine cultures from admission. Repeat blood culture 08/08 negative to date. -2-D echocardiogram and SIENA did not show vegetation. -Continue oxacillin as per infectious disease. PICC line removed prior to AMA discharge. Recommend patient seek treatment at any hospital for continuation of IV antibiotics to complete treatment course. //Acute encephalopathy: Appears resolved. // History of IV drug abuse (methamphetamine, Dilaudid): Urine drug screen positive for cocaine, opiates, benzodiazepines. -Counseling provided. Risks of continued IV drug use, which include and disability discussed. -Throughout hospitalization patient has conveyed understanding of risks associated with continued use, as well as importance of continued antibiotic treatment. //Pain management. Patient offered urinalysis which was negative for opioids suspected being on opioids. No clinical evidence for pain or opioid withdrawal. // Hepatitis C: Ultrasound shows enlarged liver, negative Mullins sign. We'll need to follow-up with primary care as outpatient. Appreciate infectious disease assistance. // Acute kidney failure: Resolved. Secondary to dehydration. // HIV: Continue HAART medications per infectious disease. // Left wrist swelling: MRI negative for infection. Appears resolved. // Pancytopenia: Secondary to sepsis. Hemoglobin appears stable at 11.3. // DVT prophylaxis: SCDs, JULISSA bourgeois. Discharge Planning patient will need IV antibiotics to complete treatment course for bacteremia. PICC line was removed prior to AGAINST MEDICAL ADVICE discharge. Pt Condition on Discharge: Stable Discharge Disposition: Discharge Home Discharge Time: <= 30 minutes Discharge Instructions DIET: Follow Instructions for: As Tolerated, No Restrictions Francis Jane MD Aug 20, 2016 21:20
== END 2016-08-14 14:19 | disposition left against medical advice (07) | DRG 871 ==
LOC: NEPC 07:17 → NEDA 08:54 → EEVIPCON 08:54 → HIMN 09:25 → N05A 08-06 18:02 → N05B 08-12 13:43
PROVIDERS: ADMIT Internal Medicine; ATTEND Internal Medicine
PROC: 05HM33Z Insertion of Infusion Device into Right Internal Jugular Vein, Percutaneous Approach (ICD-10-PCS; principal; 2016-08-04)
PROC: B246ZZ4 Ultrasonography of Right and Left Heart, Transesophageal (ICD-10-PCS; 2016-08-07)
DX: A41.9 Sepsis, unspecified organism (principal); R65.21 Severe sepsis with septic shock; I33.0 Acute and subacute infective endocarditis; G93.40 Encephalopathy, unspecified; I76 Septic arterial embolism; E87.1 Hypo-osmolality and hyponatremia; D69.59 Other secondary thrombocytopenia; N17.9 Acute kidney failure, unspecified; F19.20 Other psychoactive substance dependence, uncomplicated; B19.20 Unspecified viral hepatitis C without hepatic coma; R07.81 Pleurodynia; R74.8 Abnormal levels of other serum enzymes; Z86.14 Personal history of Methicillin resistant Staphylococcus aureus infection; E86.0 Dehydration; F41.9 Anxiety disorder, unspecified; F90.9 Attention-deficit hyperactivity disorder, unspecified type; Z86.711 Personal history of pulmonary embolism; Z72.0 Tobacco use; F11.10 Opioid abuse, uncomplicated; F13.10 Sedative, hypnotic or anxiolytic abuse, uncomplicated; F15.90 Other stimulant use, unspecified, uncomplicated; Z59.0 Homelessness; B95.61 Methicillin susceptible Staphylococcus aureus infection as the cause of diseases classified elsewhere; Z21 Asymptomatic human immunodeficiency virus [HIV] infection status; F31.9 Bipolar disorder, unspecified; Z91.14 Patient's other noncompliance with medication regimen; M25.551 Pain in right hip
CPT/HCPCS: 36556; 36569; 71010; 71250; 72141; 73100; 73221; 74176; 76705; 76937; 80048; 80053; 80069; 80307; 81001; 83605; 83690; 83735; 84702; 84703; 85007; 85025; 85027; 86355; 86357; 86359; 86360; 86403; 87040; 87086; 87147; 87186; 87205; 87641; 93005; 93306; 93312; 93320; 93325; 94640; 94664; 96374; 96375; C9113; J1170; J1200; J1642; J2060; J2310; J2405; J2543; J2700; J3370; J7030; J7050

== ENCOUNTER 2016-09-20 10:01 | Emergency (ER) | payer BC ==
[~2016-09-20] VITALS: Ht 175.3 cm; Wt 70.0 kg
[~2016-09-20 10:01] MED LIST changes: +CEFA2SOL IV; +EPIN1INJ21 IV PUSH; +EPIN1INJ21 SQ; -NAPR500T PO; +SOLU250I IV PUSH
[2016-09-20 10:03] VITALS: BP 121/77; PULSE 102; RESP 18; TEMP 98; O2SAT 100
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
[2016-09-20] MEDS ORDERED: IBUPROFEN 800 MG TAB PO ONE (10:30)
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
[2016-09-20] MEDS ORDERED: IBUP800T23 PO (12:01)
[2016-09-21] MEDS ORDERED: CEPH-460 PO (19:28)
[2016-09-21] MEDS ORDERED: BACT800T5 PO (19:28)
== END 2016-09-20 13:06 | disposition home or self-care (01) ==
LOC: NEPK 10:01
DX: S89.92XA Unspecified injury of left lower leg, initial encounter (principal); F17.210 Nicotine dependence, cigarettes, uncomplicated; F12.10 Cannabis abuse, uncomplicated; F11.20 Opioid dependence, uncomplicated; Y04.8XXA Assault by other bodily force, initial encounter; Y93.9 Activity, unspecified; Y92.9 Unspecified place or not applicable; Y99.9 Unspecified external cause status
CPT/HCPCS: 73564; 99283; E0113

== ENCOUNTER 2016-09-21 18:24 | Emergency (ER) | payer BC, OTHER ==
[~2016-09-21] VITALS: Ht 177.8 cm; Wt 110.0 kg
[~2016-09-21 18:24] MED LIST changes: +IBUP800T23 PO
[2016-09-21 18:42] VITALS: BP 125/54; PULSE 116; RESP 18; O2SAT 96
[2016-09-21] MEDS ORDERED: BACT800T5 PO (19:28)
[2016-09-21] MEDS ORDERED: CEPH-460 PO (19:28)
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
[2016-09-21] MEDS ORDERED: SULFAMETHOXAZOLE-TRIMETHOPRIM DS 800-160 MG TAB PO ONE (19:30)
[2016-09-21] MEDS ORDERED: CEPHALEXIN MONOHYDRATE 500 MG CAP PO ONE (19:30)
[2016-09-21 20:18] VITALS: PULSE 94; RESP 16; TEMP 98.8; O2SAT 97
--- NOTE | 2016-09-22 13:44 | EKG ---
Date Performed: 09/21/2016 Time Performed: 20:03:59 PTAGE: 21 years EKG: Sinus rhythm POSSIBLE RIGHT VENTRICULAR CONDUCTION DELAY BORDERLINE ECG Compared to prior tracing no significant change PREVIOUS TRACING : 08/04/2016 08.29 DOCTOR: Jw Austin Interpretating Date/Time 09/22/2016 13:42:33
== END 2016-09-21 20:20 | disposition home or self-care (01) ==
LOC: NEDAMB 18:24
DX: L03.116 Cellulitis of left lower limb (principal); L02.413 Cutaneous abscess of right upper limb; B95.0 Streptococcus, group A, as the cause of diseases classified elsewhere; T14.8 Other injury of unspecified body region; B20 Human immunodeficiency virus [HIV] disease; R00.0 Tachycardia, unspecified; F19.99 Other psychoactive substance use, unspecified with unspecified psychoactive substance-induced disorder
CPT/HCPCS: 87070; 87205; 93005

== ENCOUNTER 2017-01-29 16:06 | Inpatient (IN) | payer BC, OTHER ==
[~2017-01-29] VITALS: Ht 175.3 cm; Wt 76.8 kg
[~2017-01-29 16:06] MED LIST changes: +BACT800T5 PO; +CEPH-460 PO; +IBUP1TAB7 PO; -IBUP800T23 PO
[2017-01-29] MEDS ORDERED: IOHEXOL 350 MG/ML 10 ML VIAL (for RAD DIAG) IVCONTRAST ONE (16:07)
[2017-01-29 16:08] VITALS: BP 120/80; PULSE 142; RESP 26; TEMP 100.6; O2SAT 100
[2017-01-29 16:49] VITALS: BP 108/63; PULSE 130; RESP 26; TEMP 100.8; O2SAT 98
[2017-01-29] MEDS ORDERED: ONDANSETRON HCL 4 MG/2 ML VIAL IV PUSH ONE (17:15)
[2017-01-29] MEDS ORDERED: SODIUM CHLOR 0.9% 1000 ML INJ 1,000 ML IV ONE ×3 (17:15→23:30)
--- NOTE | 2017-01-29 17:15 | PD ---
HPI Chief Complaint: Cardiac Complaint Time Seen by Provider: 16:51 Travel History International Travel<30 days: No Contact w/Intl Traveler<30days: No Traveled to known affect area: No History of Present Illness HPI 21-year-old female with history of IV drug use, septic emboli, endocarditis, HIV presents to the emergency department for evaluation of fever, chest pain, shortness breath, abdominal pain, vomiting, constipation this started last night. Patient states she quit using IV drugs for several months. However, she has restarted using methamphetamine and IV heroin. She last used 2 days ago. Patient is uncooperative on exam, she is moaning in pain. She is unsure if she has had any abdominal surgeries. Patient is unsure she could be . Her fianc is at bedside who answers questions. She states she drinks alcohol occasionally. Patient states she is currently on her menstrual cycle. Severity is moderate. No exacerbating or alleviating symptoms. PFSH Past Medical History ADHD: Yes Arthritis: No Asthma: No Autoimmune Disease: Yes Bipolar Disorder: Yes Anxiety: Yes Depression: Yes Heart Rhythm Problems: No Cancer: No Cardiovascular Problems: No High Cholesterol: No Chemotherapy: No Chest Pain: No Congestive Heart Failure: No COPD: No Cerebrovascular Accident: No Diabetes: No Diminished Hearing: No Endocrine: No Gastrointestinal Disorders: Yes GERD: No Genitourinary: No Headaches: No Hiatal Hernia: No Heparin Induced Thrombocytopen: No Hypertension: No Immune Disorder: Yes (HIV: DIAGNOSED JANUARY 2014) Implanted Vascular Access Dvce: No Kidney Stones: No Musculoskeletal: No Neurologic: Yes Psychiatric: Yes Reproductive: No Respiratory: No Immunizations Current: Yes (ALL UTD ) Migraines: Yes Pneumonia: Yes (HX) Radiation Therapy: No Renal Failure: No Seizures: No Sickle Cell Disease: No Sleep Apnea: No Thyroid Disease: No Ulcer: No Tetanus Vaccination: < 5 Years ?: Unknown : 1 : 1 Past Surgical History Abdominal Surgery: Yes (hernia repair as an infant) AICD: No Arteriovenous Shunt: No Cardiac Surgery: No Ear Surgery: No Endocrine Surgery: No Eye Surgery: No Genitourinary Surgery: No Gynecologic Surgery: No Hysterectomy: Yes (Endocarditis ) Insulin Pump: No Joint Replacement: No Neurologic Surgery: No Oral Surgery: No Pacemaker: No Thoracic Surgery: No Tonsillectomy: Yes Other Surgery: Yes ("shattered face" with stitches, LEFT ARM) Social History Alcohol Use: Yes (OCC) Tobacco Use: Yes (1PPD) Substance Use: Yes (MARIJUANA, DILAUDID IV/METH) Allergies-Medications (Allergen,Severity, Reaction): Coded Allergies: buspirone (Unverified Adverse Reaction, Severe, Irritability/Anxiety, ) *MDRO Multi-Drug Resistant Organism (Verified Adverse Reaction, Unknown, 01/29/17) MRSA (wrist wound) 11/2014; MRSA (blood & arm-08/2015)&(hand-01/21/16) MRSA PCR screen POSITIVE-08/04/16 Reported Meds & Prescriptions Reported Meds & Active Scripts Active Keflex (Cephalexin) 500 Mg Cap 500 Mg PO Q6H 5 Days Bactrim DS (Sulfamethoxazole-Trimethoprim) 800-160 Mg Tab 1 Tab PO BID Ibuprofen 800 Mg Tab 800 Mg PO Q6HR PRN Epinephrine Inj 1 Mg/Ml Inj 0.3 Mg SQ ONCE PRN Give with any signs of respiratory distress. Epinephrine Inj 1 Mg/Ml Inj 0.3 Mg IV PUSH ONCE PRN Solu-Cortef Inj (Hydrocortisone Sodium Succinate) 250 Mg Inj 250 Mg IV PUSH ONCE PRN Give over 30-60 seconds. Cefazolin Inj (Cefazolin Sodium/Dextrose) 2 Gm/50 Ml Bagp 2 Gm IV Q8H 30 Days Reported Truvada (Emtricitabine-Tenofovir Disoproxil Fumarate) 100-150 Mg Tab 1 Tab PO DAILY Klonopin (Clonazepam) 2 Mg Tab 2 Mg PO BID Review of Systems Except as stated in HPI: all other systems reviewed are Neg Physical Exam Narrative GENERAL: Well-nourished, well-developed female patient, temp 100.8. SKIN: Focused skin assessment warm/dry. HEAD: Normocephalic. Atraumatic. EYES: No scleral icterus. No injection or drainage. NECK: Supple, trachea midline. No JVD or lymphadenopathy. CARDIOVASCULAR: Regular rhythm without murmurs, gallops, or rubs. Patient is tachycardic with HR in the 120's and 130's. RESPIRATORY: Breath sounds equal bilaterally. No accessory muscle use. Lungs sounds are clear to auscultation. GASTROINTESTINAL: Abdomen soft and nondistended. Patient has diffuse tenderness throughout. MUSCULOSKELETAL: No cyanosis, or edema. Patient has tenderness to palpation of midsternal chest wall. BACK: Nontender without obvious deformity. No CVA tenderness. Data Data Last Documented VS Vital Signs Date Time Temp Pulse Resp B/P (MAP) Pulse Ox O2 Delivery O2 Flow Rate FiO2 01/29/17 20:12 112 20 107/55 (72) 100 Room Air 01/29/17 16:49 100.8 Orders Orders Sepsis Workup Initiated (01/29/17 ) Electrocardiogram (01/29/17 16:13) Complete Blood Count With Diff (01/29/17 16:13) Comprehensive Metabolic Panel (01/29/17 16:13) Prothrombin Time / Inr (Pt) (01/29/17 16:13) Act Partial Throm Time (Ptt) (01/29/17 16:13) Lactic Acid Sepsis Protocol (01/29/17 16:13) Lipase (01/29/17 16:13) Ckmb (Isoenzyme) Profile (01/29/17 16:13) Troponin I (01/29/17 16:13) Urinalysis - C+S If Indicated (01/29/17 16:13) Blood Culture (01/29/17 16:13) Ed Urine Pregnancytest Poc (01/29/17 17:03) Sodium Chlor 0.9% 1000 Ml Inj (Ns 1000 M (01/29/17 17:15) Sodium Chlor 0.9% 1000 Ml Inj (Ns 1000 M (01/29/17 17:15) Ondansetron Inj (Zofran Inj) (01/29/17 17:15) Vancomycin Inj (Vancomycin Inj) (01/29/17 17:45) Piperacil-Tazo 3.375 Gm Premix (Zosyn 3. (01/29/17 17:45) Vascular Access Team Consult/P PRN (01/29/17 17:42) Vascular Poc Ultrasound (01/29/17 ) Ct Thorax/ Chest W Iv Contrast (01/29/17 ) Ct Abd/Pel W Iv Contrast(Rout) (01/29/17 ) Chest, Single Ap (01/29/17 16:13) Urine Culture (01/29/17 18:05) Morphine Inj (Morphine Inj) (01/29/17 19:30) Iohexol 350 Inj (Omnipaque 350 Inj) (01/29/17 16:07) Admit Order (Ed Use Only) (01/29/17 21:55) Labs Laboratory Tests Test 01/29/17 17:25 01/29/17 18:05 01/29/17 19:20 White Blood Count 25.5 TH/MM3 Red Blood Count 4.49 MIL/MM3 Hemoglobin 13.4 GM/DL Hematocrit 39.5 % Mean Corpuscular Volume 87.8 FL Mean Corpuscular Hemoglobin 29.8 PG Mean Corpuscular Hemoglobin Concent 33.9 % Red Cell Distribution Width 12.8 % Platelet Count 187 TH/MM3 Mean Platelet Volume 8.7 FL Neutrophils (%) (Auto) 89.6 % Lymphocytes (%) (Auto) 5.8 % Monocytes (%) (Auto) 4.4 % Eosinophils (%) (Auto) 0.1 % Basophils (%) (Auto) 0.1 % Neutrophils # (Auto) 22.9 TH/MM3 Lymphocytes # (Auto) 1.5 TH/MM3 Monocytes # (Auto) 1.1 TH/MM3 Eosinophils # (Auto) 0.0 TH/MM3 Basophils # (Auto) 0.0 TH/MM3 CBC Comment DIFF FINAL Differential Comment Blood Urea Nitrogen 10 MG/DL Creatinine 0.79 MG/DL Random Glucose 88 MG/DL Total Protein 8.7 GM/DL Albumin 3.8 GM/DL Calcium Level 9.0 MG/DL Alkaline Phosphatase 198 U/L Aspartate Amino Transf (AST/SGOT) 60 U/L Alanine Aminotransferase (ALT/SGPT) 93 U/L Total Bilirubin 1.2 MG/DL Sodium Level 129 MEQ/L Potassium Level 4.0 MEQ/L Chloride Level 97 MEQ/L Carbon Dioxide Level 23.3 MEQ/L Anion Gap 9 MEQ/L Estimat Glomerular Filtration Rate 92 ML/MIN Lactic Acid Level 1.2 mmol/L Total Creatine Kinase 43 U/L Troponin I LESS THAN 0.02 NG/ML Lipase 43 U/L Urine Color YELLOW Urine Turbidity CLEAR Urine pH 6.5 Urine Specific [place] 1.026 Urine Protein 30 mg/dL Urine Glucose (UA) NEG mg/dL Urine Ketones NEG mg/dL Urine Occult Blood MOD Urine Nitrite NEG Urine Bilirubin NEG Urine Urobilinogen 4.0 MG/DL Urine Leukocyte Esterase SMALL Urine RBC 35 /hpf Urine WBC 13 /hpf Urine Mucus FEW /lpf Microscopic Urinalysis Comment CATH-CULTURE IND Prothrombin Time 13.4 SEC Prothromb Time International Ratio 1.2 RATIO Activated Partial Thromboplast Time 39.8 SEC MDM Medical Decision Making Medical Screen Exam Complete: Yes Emergency Medical Condition: Yes Medical Record Reviewed: Yes Interpretation(s) Last Impressions Chest X-Ray 01/29/17 1613 Signed Impressions: Service Date/Time: Sunday, January 29, 2017 19:07 - CONCLUSION: No acute disease. Leonard Azevedo MD Chest CT 01/29/17 0000 Signed Impressions: Service Date/Time: Sunday, January 29, 2017 19:42 - CONCLUSION: Minimal suspected atelectasis or consolidation at the right lower lobe. Leonard Azevedo MD Abdomen/Pelvis CT 01/29/17 0000 Signed Impressions: Service Date/Time: Sunday, January 29, 2017 19:42 - CONCLUSION: 1. Nonspecific mild dilation of the small bowel. The cause is not seen. 2. Suspected small area of focal fatty infiltration at the anterior aspect of the liver in the region of the falciform ligament. Leonard Azevedo MD Differential Diagnosis Septic emboli versus UTI versus pyelonephritis versus sepsis versus polysubstance abuse Narrative Course 21-year-old female presents to the emergency department for evaluation of fever , chest pain, shortness breath, abdominal pain, vomiting. Patient has a temperature 100.8 and is tachycardic in the 130s and 140s. She is currently using IV drugs. EKG, CBC, CMP, PTT, PT/INR, lactic acid, lipase, CK, troponin, UA, blood cultures 2, urine test are ordered and pending. Patient is given normal saline liter IV bolus 2, Zofran [address] the abdomen and chest with IV contrast are ordered and pending. Patient started on vancomycin 1 g IV, Zosyn 3.375 g IV. EKG shows sinus tachycardia, HR 129, no acute ST changes. CBC shows leukocytosis 25.5. CMP shows hyponatremia of 129, bilirubin 1.2, AST 60, ALT 93 , alkaline phosphatase 198. Lipase is 43. Lactic acid is 1.2. CK is 43. Troponin is less than 0.02. PT is 13.4, INR 1.2; PTT is 39.8. UA shows moderate occult blood, small leukocyte esterase, 35 RBCs, 13 WBC. UPT is negative. Chest x-ray shows no acute disease. CT of the chest with IV contrast shows minimal suspected atelectasis or consolidation at the right lower lobe. CT abdomen/pelvis with IV contrast shows nonspecific mild dilation of the small bowel. The cause is not seen; Suspected small area of focal fatty infiltration at the anterior aspect of the liver in the region of the falciform ligament. [facility] is page for admission. Sepsis Criteria SIRS Criteria (2 or more): Heart rate over 90, RR > 20 or PaCO2 < 32, WBC > 39061, < 4000 or > 10% bands Sepsis Criteria (SIRS+source): Infect source susp/known Diagnosis Primary Impression: Sepsis Qualified Codes: A41.9 - Sepsis, unspecified organism Additional Impressions: Possible endocarditis Pneumonia Qualified Codes: J18.1 - Lobar pneumonia, unspecified organism IVDU (intravenous drug user) Admitting Information Admitting Physician Requests: it Danielle Gillette Jan 29, 2017 17:15
[2017-01-29] MEDS ORDERED: PIPERACIL-TAZO 3.375 GM PREMIX 50 ML IV ONE (17:45)
[2017-01-29] MEDS ORDERED: VANCOMYCIN INJ 1,000 MG in SODIUM CHLOR 0.9% 250 ML INJ 250 ML IV ONE (17:45)
[2017-01-29 18:02] LABS: AUTOMATED NEUTROPHIL # 22.9 TH/MM3 (1.8-7.7); BASOPHIL % 0.1 % (0.0-2.0); EOSINOPHIL % 0.1 % (0.0-4.0); HEMATOCRIT 39.5 % (35.0-46.0); HEMO FLAGS DIFF FINAL; LYMPH % 5.8 % (9.0-44.0); LYMPHOCYTE # 1.5 TH/MM3 (1.0-4.8); MEAN CELL VOLUME 87.8 FL (80.0-100.0); MEAN CORPUSCULAR HEMOGLOBIN 29.8 PG (27.0-34.0); MEAN CORPUSCULAR HGB CONC 33.9 % (32.0-36.0); MONO % 4.4 % (0.0-8.0); NEUT % 89.6 % (16.0-70.0); PLATELET COUNT 187 TH/MM3 (150-450); RED BLOOD COUNT 4.49 MIL/MM3 (4.00-5.30); RED CELL DISTRIBUTION WIDTH 12.8 % (11.6-17.2); WHITE BLOOD COUNT 25.5 TH/MM3 (4.0-11.0)
[2017-01-29 18:04] LABS: ANION GAP 9 MEQ/L (5-15); AST (GOT) 60 U/L (15-37); BICARBONATE 23.3 MEQ/L (21.0-32.0); BLOOD UREA NITROGEN 10 MG/DL (7-18); CHLORIDE 97 MEQ/L (98-107); GLOMERULAR FILTRATION RATE 92 ML/MIN (>89); SODIUM (NA) 129 MEQ/L (136-145)
[2017-01-29 18:08] LABS: ALKALINE PHOSPHATASE 198 U/L (45-117); ALT (GPT) 93 U/L (10-53); TOTAL BILIRUBIN ADULT 1.2 MG/DL (0.2-1.0)
[2017-01-29 18:10] LABS: CREATINE KINASE 43 U/L (26-192)
[2017-01-29 18:36] LABS: BLOOD, URINE MOD (NEG); GLUCOSE,URINE NEG (NEG); KETONE, URINE NEG (NEG); MUCUS URINE FEW /lpf (OCC); NITRITE,URINE NEG (NEG); PH, URINE 6.5 (5.0-8.5); URINE COLOR YELLOW (YELLW/STRAW)
[2017-01-29 18:38] LABS: COMMENT (UR) CATH-CULTURE IND; CULTURE IF INDICATED CATH CULTURE IND
--- NOTE | 2017-01-29 19:21 | PD ---
Physical Exam Date Seen by Provider: Jan 29, 2017 Time Seen by Provider: 15:00 Narrative I, Dr. Zapata, have reviewed the advance practice practitioner's documentation and am in agreement, met with the patient face to face, made the diagnosis, and the medical decision making was done by me. *My assessment and Findings: Patient seen and evaluated with PA, please see PA note for further details. Patient is IV drug user, endocarditis history, running fevers, and there is great concern for underlying sepsis or endocarditis. Sepsis workup was initiated IV antibiotics were initiated in the ER after cultures were drawn. Planning to admit for further treatment. Laboratory Tests Test 01/29/17 17:25 01/29/17 18:05 White Blood Count 25.5 TH/MM3 (4.0-11.0) Neutrophils (%) (Auto) 89.6 % (16.0-70.0) Lymphocytes (%) (Auto) 5.8 % (9.0-44.0) Neutrophils # (Auto) 22.9 TH/MM3 (1.8-7.7) Monocytes # (Auto) 1.1 TH/MM3 (0-0.9) Total Protein 8.7 GM/DL (6.4-8.2) Alkaline Phosphatase 198 U/L (45-117) Aspartate Amino Transf (AST/SGOT) 60 U/L (15-37) Alanine Aminotransferase (ALT/SGPT) 93 U/L (10-53) Total Bilirubin 1.2 MG/DL (0.2-1.0) Sodium Level 129 MEQ/L (136-145) Chloride Level 97 MEQ/L (98-107) Troponin I LESS THAN 0.02 NG/ML Lipase 43 U/L (73-393) Urine Protein 30 mg/dL (NEG-TRACE) Urine Occult Blood MOD (NEG) Urine Urobilinogen 4.0 MG/DL (LESS THAN Urine Leukocyte Esterase SMALL (NEG) Urine RBC 35 /hpf (0-3) Urine WBC 13 /hpf (0-5) Urine Mucus FEW /lpf (OCC) Data Data Last Documented VS Vital Signs Date Time Temp Pulse Resp B/P (MAP) Pulse Ox O2 Delivery O2 Flow Rate FiO2 01/29/17 16:49 100.8 130 26 108/63 (78) 98 01/29/17 16:49 Room Air Orders Orders Sepsis Workup Initiated (01/29/17 ) Electrocardiogram (01/29/17 16:13) Complete Blood Count With Diff (01/29/17 16:13) Comprehensive Metabolic Panel (01/29/17 16:13) Prothrombin Time / Inr (Pt) (01/29/17 16:13) Act Partial Throm Time (Ptt) (01/29/17 16:13) Lactic Acid Sepsis Protocol (01/29/17 16:13) Lipase (01/29/17 16:13) Ckmb (Isoenzyme) Profile (01/29/17 16:13) Troponin I (01/29/17 16:13) Urinalysis - C+S If Indicated (01/29/17 16:13) Blood Culture (01/29/17 16:13) Ed Urine Pregnancytest Poc (01/29/17 17:03) Sodium Chlor 0.9% 1000 Ml Inj (Ns 1000 M (01/29/17 17:15) Sodium Chlor 0.9% 1000 Ml Inj (Ns 1000 M (01/29/17 17:15) Ondansetron Inj (Zofran Inj) (01/29/17 17:15) Vancomycin Inj (Vancomycin Inj) (01/29/17 17:45) Piperacil-Tazo 3.375 Gm Premix (Zosyn 3. (01/29/17 17:45) Vascular Access Team Consult/P PRN (01/29/17 17:42) Vascular Poc Ultrasound (01/29/17 ) Ct Thorax/ Chest W Iv Contrast (01/29/17 ) Ct Abd/Pel W Iv Contrast(Rout) (01/29/17 ) Chest, Single Ap (01/29/17 16:13) Urine Culture (01/29/17 18:05) Morphine Inj (Morphine Inj) (01/29/17 19:30) Labs Laboratory Tests Test 01/29/17 17:25 01/29/17 18:05 White Blood Count 25.5 TH/MM3 Red Blood Count 4.49 MIL/MM3 Hemoglobin 13.4 GM/DL Hematocrit 39.5 % Mean Corpuscular Volume 87.8 FL Mean Corpuscular Hemoglobin 29.8 PG Mean Corpuscular Hemoglobin Concent 33.9 % Red Cell Distribution Width 12.8 % Platelet Count 187 TH/MM3 Mean Platelet Volume 8.7 FL Neutrophils (%) (Auto) 89.6 % Lymphocytes (%) (Auto) 5.8 % Monocytes (%) (Auto) 4.4 % Eosinophils (%) (Auto) 0.1 % Basophils (%) (Auto) 0.1 % Neutrophils # (Auto) 22.9 TH/MM3 Lymphocytes # (Auto) 1.5 TH/MM3 Monocytes # (Auto) 1.1 TH/MM3 Eosinophils # (Auto) 0.0 TH/MM3 Basophils # (Auto) 0.0 TH/MM3 CBC Comment DIFF FINAL Differential Comment Blood Urea Nitrogen 10 MG/DL Creatinine 0.79 MG/DL Random Glucose 88 MG/DL Total Protein 8.7 GM/DL Albumin 3.8 GM/DL Calcium Level 9.0 MG/DL Alkaline Phosphatase 198 U/L Aspartate Amino Transf (AST/SGOT) 60 U/L Alanine Aminotransferase (ALT/SGPT) 93 U/L Total Bilirubin 1.2 MG/DL Sodium Level 129 MEQ/L Potassium Level 4.0 MEQ/L Chloride Level 97 MEQ/L Carbon Dioxide Level 23.3 MEQ/L Anion Gap 9 MEQ/L Estimat Glomerular Filtration Rate 92 ML/MIN Lactic Acid Level 1.2 mmol/L Total Creatine Kinase 43 U/L Troponin I LESS THAN 0.02 NG/ML Lipase 43 U/L Urine Color YELLOW Urine Turbidity CLEAR Urine pH 6.5 Urine Specific [place] 1.026 Urine Protein 30 mg/dL Urine Glucose (UA) NEG mg/dL Urine Ketones NEG mg/dL Urine Occult Blood MOD Urine Nitrite NEG Urine Bilirubin NEG Urine Urobilinogen 4.0 MG/DL Urine Leukocyte Esterase SMALL Urine RBC 35 /hpf Urine WBC 13 /hpf Urine Mucus FEW /lpf Microscopic Urinalysis Comment CATH-CULTURE IND MDM Medical Record Reviewed: Yes Supervised Visit with MAHSA: Yes Diagnosis Primary Impression: Probable infective endocarditis Additional Impression: Sepsis Admitting Information Admitting Physician Requests: Admit Thomas Zapata MD Jan 29, 2017 19:21
[2017-01-29] MEDS ORDERED: MORPHINE SULFATE 4 MG/ML INJ IV PUSH ONE (19:30)
--- NOTE | 2017-01-29 20:09 | RADRPT ---
EXAM DATE/TIME: 01/29/2017 19:07 [facility] COMPARISON: CHEST SINGLE AP, August 12, 2016, 11:07. INDICATIONS : Dyspnea. MEDICAL HISTORY : None. SURGICAL HISTORY : None. ENCOUNTER: Initial ACUITY: 1 day PAIN SCORE: 0/10 LOCATION: Bilateral chest FINDINGS: The patient is rotated towards the right. The heart size is normal. The lungs are grossly clear. No e ffusion is seen. CONCLUSION: No acute disease. Leonard Azevedo MD on January 29, 2017 at 20:07 Board Certified Radiologist. This report was verified electronically.
[2017-01-29 20:12] VITALS: BP 107/55; PULSE 112; RESP 20; O2SAT 100
[2017-01-29 20:21] LABS: APTT (PATIENT) 39.8 SEC (24.3-30.1); INTERNATIONAL NORMALIZED RATIO 1.2 RATIO; PROTHROMBIN TIME - PATIENT 13.4 SEC (9.8-11.6)
--- NOTE | 2017-01-29 20:52 | RADRPT ---
EXAM DATE/TIME: 01/29/2017 19:42 [facility] COMPARISON: No previous studies available for comparison. INDICATIONS : Lower abdomen pain,fever. IV CONTRAST: 85 cc Omnipaque 350 (iohexol) IV ; Cumulative dose for multiple exams. ORAL CONTRAST: No oral contrast ingested. RADIATION DOSE: 5.1 CTDIvol (mGy) ; Combined studies - Thorax/Abdomen/Pelvis MEDICAL HISTORY : HIV. Endocarditis SURGICAL HISTORY : Hernia repair ENCOUNTER: Initial ACUITY: 1 day PAIN SCALE: 7/10 LOCATION: Abdomen TECHNIQUE: Volumetric scanning of the abdomen and pelvis was performed. Using automated exposure control and ad justment of the mA and/or kV according to patient size, radiation dose was kept as low as reasonably achievable to obtain optimal diagnostic quality images. DICOM format image data is available electro nically for review and comparison. FINDINGS: LOWER LUNGS: The visualized lower lungs are clear. LIVER: There is a 1.9 cm area of low density seen in the anterior aspect of the falciform ligament region wh ich is a good location for a small area of fatty infiltration. There is no dilation of the biliary tr ee. No calcified gallstones. SPLEEN: Normal size without lesion. PANCREAS: Within normal limits. KIDNEYS: Normal in size and shape. There is no mass, stone or hydronephrosis. ADRENAL GLANDS: Within normal limits. VASCULAR: There is no aortic aneurysm. BOWEL/MESENTERY: There is dilatation of the small bowel measuring up to 3.9 cm. The small bowel is fluid filled. Sign ificant inflammatory change is not seen. A mass is not seen. The appendix is not identified. Colon is unremarkable. ABDOMINAL WALL: Within normal limits. RETROPERITONEUM: There is no lymphadenopathy. BLADDER: No wall thickening or mass. REPRODUCTIVE: Within normal limits. INGUINAL: There is no lymphadenopathy or hernia. MUSCULOSKELETAL: Within normal limits for patient age. CONCLUSION: 1. Nonspecific mild dilation of the small bowel. The cause is not seen. 2. Suspected small area of focal fatty infiltration at the anterior aspect of the liver in the region of the falciform ligament. Leonard Azevedo MD on January 29, 2017 at 20:46 Board Certified Radiologist. This report was verified electronically.
--- NOTE | 2017-01-29 21:35 | RADRPT ---
EXAM DATE/TIME: 01/29/2017 19:42 [facility] COMPARISON: CT THORAX W CONTRAST, August 20, 2015, 17:36. INDICATIONS : Fever shortness of breath,chest pain IV CONTRAST: 85 cc Omnipaque 350 (iohexol) IV ; Cumulative dose for multiple exams. RADIATION DOSE: 5.1 CTDIvol (mGy) ; Combined studies - Thorax/Abdomen/Pelvis MEDICAL HISTORY : HIV. Endocarditis SURGICAL HISTORY : Hernia repair ENCOUNTER: Initial ACUITY: 1 day PAIN SCALE: 7/10 LOCATION: chest TECHNIQUE: Volumetric scanning of the chest was performed. Using automated exposure control and adjustment of t he mA and/or kV according to patient size, radiation dose was kept as low as reasonably achievable to obtain optimal diagnostic quality images. DICOM format image data is available electronically for review and comparison. Follow-up recommendations for detected pulmonary nodules are based at a minimum on nodule size and pa tient risk factors according to Fleischner Society Guidelines. FINDINGS: LUNGS: There is minimal increased density at the posterior right lower lobe likely related to atelectasis or minimal consolidation. The left lung is grossly clear. PLEURA: There is no pleural thickening or pleural effusion. MEDIASTINUM: The heart and great vessels demonstrate no acute abnormality. There is no mediastinal or hilar lymph adenopathy. AXILLAE: Within normal limits. No lymphadenopathy. SKELETAL: Within normal limits for patient age. MISCELLANEOUS: The visualized upper abdominal organs demonstrate no acute abnormality. CONCLUSION: Minimal suspected atelectasis or consolidation at the right lower lobe. Leonard Azevedo MD on January 29, 2017 at 21:31 Board Certified Radiologist. This report was verified electronically.
[2017-01-29] MEDS ORDERED: BISACODYL 10 MG SUPP RECTAL PRN (22:45)
[2017-01-29] MEDS ORDERED: Vancomycin Consult Pharmacy 1 EA OTHER SCH (22:45)
[2017-01-29] MEDS ORDERED: SENNOSIDES 8.6 MG TAB PO PRN (22:45)
[2017-01-29] MEDS ORDERED: NALOXONE HCL 0.4 MG/ML AMP IV PUSH PRN (22:45)
[2017-01-29] MEDS ORDERED: ACETAMINOPHEN/HYDROcodone 325 MG/5 MG TAB PO PRN (22:45)
[2017-01-29] MEDS ORDERED: ONDANSETRON HCL 4 MG/2 ML VIAL IVP PRN (22:45)
[2017-01-29] MEDS ORDERED: MAGNESIUM HYDROXIDE SUSP 30 ML CUP PO PRN (22:45)
[2017-01-29] MEDS ORDERED: SODIUM CHLORIDE 0.9% FLUSH 10 ML FLUSH IV FLUSH PRN (22:45)
[2017-01-29] MEDS ORDERED: ACETAMINOPHEN 325 MG TAB PO PRN (22:45)
[2017-01-29] MEDS: SODIUM CHLOR 0.9% 1000 ML INJ 1,000 ML IV SCH (23:21)
[2017-01-29] MEDS: ENOXAPARIN SODIUM 40 MG/0.4 ML SYRINGE SQ SCH (23:23)
[2017-01-29] MEDS ORDERED: VANCOMYCIN 500 MG/NS 100 ML IV ONE ×2 (23:45)
[2017-01-29 23:51] VITALS: BP 107/60; PULSE 106; RESP 22; O2SAT 97
--- NOTE | 2017-01-30 01:26 | HHI.HP ---
[facility] No Primary Care Physician Admission Diagnosis sepsis, pneumonia, IVDU Diagnoses: Travel History International Travel<30 Days: No Contact w/Intl Traveler <30 Da: No Traveled to Known Affected Are: No History of Present Illness 21-year-old female with a past medical history significant for HIV and IV drug abuse presents with a 2 day history of nausea/vomiting and severe abdominal pain. The patient is uncooperative during her interview, and either refuses to answer questions or answers them with a single word. The patient endorses subjective fever/chills. She states she has been unable to walk because her pain is so great. She reports abdominal distention and extreme tenderness to palpation. Laboratory values significant for leukocytosis of 25.5 with a left shift. She is hyponatremic with a sodium of 129 and a mild transaminitis. Urine consistent with UTI. CT of the abdomen/pelvis showed nonspecific mild dilation of the small bowel. Chest CT showed minimal suspected atelectasis or consolidation at the right lower lobe. Patient was febrile to 100.8 and remains tachycardic in the 130s. The patient admitted in the emergency department to using IV drugs 2 days ago however during our interview she states it has been several weeks. Review of Systems Subjective fever/chills Denies blurry vision, otorrhea, rhinorrhea Denies sore throat and cough Endorses chest pain and shortness of breath Positive abdominal pain Positive constipation/diarrhea/nausea/vomiting Muscle pain and weakness throughout her body No rashes Past Family Social History Past Medical History HIV IV drug abuse Past Surgical History None Reported Medications Reported Meds & Active Scripts Active Keflex (Cephalexin) 500 Mg Cap 500 Mg PO Q6H 5 Days Bactrim DS (Sulfamethoxazole-Trimethoprim) 800-160 Mg Tab 1 Tab PO BID Ibuprofen 800 Mg Tab 800 Mg PO Q6HR PRN Epinephrine Inj 1 Mg/Ml Inj 0.3 Mg SQ ONCE PRN Give with any signs of respiratory distress. Epinephrine Inj 1 Mg/Ml Inj 0.3 Mg IV PUSH ONCE PRN Solu-Cortef Inj (Hydrocortisone Sodium Succinate) 250 Mg Inj 250 Mg IV PUSH ONCE PRN Give over 30-60 seconds. Cefazolin Inj (Cefazolin Sodium/Dextrose) 2 Gm/50 Ml Bagp 2 Gm IV Q8H 30 Days Reported Truvada (Emtricitabine-Tenofovir Disoproxil Fumarate) 100-150 Mg Tab 1 Tab PO DAILY Klonopin (Clonazepam) 2 Mg Tab 2 Mg PO BID Allergies: Coded Allergies: buspirone (Unverified Adverse Reaction, Severe, Irritability/Anxiety, ) *MDRO Multi-Drug Resistant Organism (Verified Adverse Reaction, Unknown, 01/29/17) MRSA (wrist wound) 11/2014; MRSA (blood & arm-08/2015)&(hand-01/21/16) MRSA PCR screen POSITIVE-08/04/16 Family History Mother recently , patient refuses to say more. Social History Occasional tobacco. Occasional alcohol. Admits to shooting and smoking meth, last use a few weeks ago. Physical Exam Vital Signs Vital Signs Date Time Temp Pulse Resp B/P (MAP) Pulse Ox O2 Delivery O2 Flow Rate FiO2 01/29/17 23:51 106 22 107/60 (76) 97 01/29/17 23:51 01/29/17 20:12 112 20 107/55 (72) 100 Room Air 01/29/17 16:49 100.8 130 26 108/63 (78) 98 01/29/17 16:49 26 Room Air 01/29/17 16:08 100.6 142 26 120/80 (93) 100 Physical Exam GENERAL: female lying in bed SKIN: No rashes, ecchymoses or lesions. Cool and dry. HEAD: Atraumatic. Normocephalic. No temporal or scalp tenderness. EYES: Pupils equal round and reactive. Extraocular motions intact. No scleral icterus. No injection or drainage. ENT: Nose without bleeding, purulent drainage or septal hematoma. Throat without erythema, tonsillar hypertrophy or exudate. Uvula midline. Airway patent. NECK: Trachea midline. No JVD or lymphadenopathy. Supple, nontender, no meningeal signs. CARDIOVASCULAR: Regular rate and rhythm without murmurs, gallops, or rubs. RESPIRATORY: Clear to auscultation. Breath sounds equal bilaterally. No wheezes , rales, or rhonchi. GASTROINTESTINAL: Abdomen with mild distention, exquisitely tender to palpation in all 4 quadrants. No guarding. MUSCULOSKELETAL: Extremities without clubbing, cyanosis, or edema. No joint tenderness, effusion, or edema noted. NEUROLOGICAL: Awake and alert. Cranial nerves II through XII intact. Motor and sensory grossly within normal limits. Normal speech. Laboratory Laboratory Tests Test 01/29/17 17:25 01/29/17 18:05 01/29/17 19:20 White Blood Count 25.5 Red Blood Count 4.49 Hemoglobin 13.4 Hematocrit 39.5 Mean Corpuscular Volume 87.8 Mean Corpuscular Hemoglobin 29.8 Mean Corpuscular Hemoglobin Concent 33.9 Red Cell Distribution Width 12.8 Platelet Count 187 Mean Platelet Volume 8.7 Neutrophils (%) (Auto) 89.6 Lymphocytes (%) (Auto) 5.8 Monocytes (%) (Auto) 4.4 Eosinophils (%) (Auto) 0.1 Basophils (%) (Auto) 0.1 Neutrophils # (Auto) 22.9 Lymphocytes # (Auto) 1.5 Monocytes # (Auto) 1.1 Eosinophils # (Auto) 0.0 Basophils # (Auto) 0.0 CBC Comment DIFF FINAL Differential Comment Blood Urea Nitrogen 10 Creatinine 0.79 Random Glucose 88 Total Protein 8.7 Albumin 3.8 Calcium Level 9.0 Alkaline Phosphatase 198 Aspartate Amino Transf (AST/SGOT) 60 Alanine Aminotransferase (ALT/SGPT) 93 Total Bilirubin 1.2 Sodium Level 129 Potassium Level 4.0 Chloride Level 97 Carbon Dioxide Level 23.3 Anion Gap 9 Estimat Glomerular Filtration Rate 92 Lactic Acid Level 1.2 Total Creatine Kinase 43 Troponin I LESS THAN 0.02 Lipase 43 Urine Color YELLOW Urine Turbidity CLEAR Urine pH 6.5 Urine Specific [place] 1.026 Urine Protein 30 Urine Glucose (UA) NEG Urine Ketones NEG Urine Occult Blood MOD Urine Nitrite NEG Urine Bilirubin NEG Urine Urobilinogen 4.0 Urine Leukocyte Esterase SMALL Urine RBC 35 Urine WBC 13 Urine Mucus FEW Microscopic Urinalysis Comment CATH-CULTURE IND Prothrombin Time 13.4 Prothromb Time International Ratio 1.2 Activated Partial Thromboplast Time 39.8 Date/Time Source Procedure Growth Status 01/29/17 19:20 Blood Peripheral Aerobic Blood Culture Pending Received 01/29/17 19:20 Blood Peripheral Anaerobic Blood Culture Pending Received 01/29/17 18:05 Urine Catheterized Urine Urine Culture Pending Received Result Diagram: 01/29/17 1725 01/29/17 1725 Caprini VTE Risk Assessment Caprini VTE Risk Assessment: No/Low Risk (score <= 1) Caprini Risk Assessment Model Point Value = 1 Point Value = 2 Point Value = 3 Point Value = 5 Age 41-60 Minor surgery BMI > 25 kg/m2 Swollen legs Varicose veins or History of unexplained or recurrent spontaneous Oral contraceptives or hormone replacement Sepsis (< 1 month) Serious lung disease, including pneumonia (< 1 month) Abnormal pulmonary function Acute myocardial infarction Congestive heart failure (< 1 month) History of inflammatory bowel disease Medical patient at bed rest Age 61-74 Arthroscopic surgery Major open surgery (> 45 min) Laparoscopic surgery (> 45 min) Malignancy Confined to bed (> 72 hours) Immobilizing plaster cast Central venous access Age >= 75 History of VTE Family history of VTE Factor V Leiden Prothrombin [id number] Lupus anticoagulant Anticardiolipin antibodies Elevated serum homocysteine Heparin-induced thrombocytopenia Other congenital or acquired thrombophilia Stroke (< 1 month) Elective arthroplasty Hip, pelvis, or leg fracture Acute spinal cord injury (< 1 month) Prophylaxis Regimen Total Risk Factor Score Risk Level Prophylaxis Regimen 0-1 Low Early ambulation 2 Moderate Order ONE of the following: *Sequential Compression Device (SCD) *Heparin 5000 units SQ BID 3-4 Higher Order ONE of the following medications: *Heparin 5000 units SQ TID *Enoxaparin/Lovenox 40 mg SQ daily (WT < 150 kg, CrCl > 30 mL/min) *Enoxaparin/Lovenox 30 mg SQ daily (WT < 150 kg, CrCl > 10-29 mL/min) *Enoxaparin/Lovenox 30 mg SQ BID (WT < 150 kg, CrCl > 30 mL/min) AND/OR *Sequential Compression Device (SCD) 5 or more Highest Order ONE of the following medications: *Heparin 5000 units SQ TID (Preferred with Epidurals) *Enoxaparin/Lovenox 40 mg SQ daily (WT < 150 kg, CrCl > 30 mL/min) *Enoxaparin/Lovenox 30 mg SQ daily (WT < 150 kg, CrCl > 10-29 mL/min) *Enoxaparin/Lovenox 30 mg SQ BID (WT < 150 kg, CrCl > 30 mL/min) AND *Sequential Compression Device (SCD) Assessment and Plan Assessment and Plan 21-year-old female with a past medical history significant for HIV and IV drug abuse presents with sepsis. 1. Sepsis Patient febrile, tachycardic with leukocytosis UA remarkable for UTI, urine cultures pending Chest x-ray with possible left lower lobe consolidation Blood cultures pending Concern for endocarditis, echo pending Infectious disease consulted, appreciate recommendations Vancomycin and Zosyn IV fluid hydration Lactic acid 1.2 2. HIV Patient does not know her last CD4 count CD4 CD8 count pending She states she has an infectious disease doctor and is compliant with her medications Will continue home medication once med reconciliation has been done 3. Hyponatremia Normal saline Monitor with BMP in the a.m. 4. IV drug abuse Unclear when patient last used IV drugs UDS pending FEN Heart healthy diet Electrolytes: as above NS at 100 cc/hr Lovenox Physician Certification 2 Midnight Certification Type: Admission for Inpatient Services Order for Inpatient Services The services are ordered in accordance with Medicare regulations or non- Medicare payer requirements, as applicable. In the case of services not specified as inpatient-only, they are appropriately provided as inpatient services in accordance with the 2-midnight benchmark. Estimated LOS (days): 2 2 days is the estimated time the patient will need to remain in the hospital, assuming treatment plan goals are met and no additional complications. Post-Hospital Plan: Not yet determined Ana Francis MD Jan 30, 2017 01:26
[2017-01-30] MEDS: PIPERACIL-TAZO 3.375 GM PREMIX 50 ML IV SCH ×4 (02:06→20:23)
[2017-01-30 04:00] VITALS: BP 95/52; PULSE 86; RESP 20; TEMP 97.6; O2SAT 99
[2017-01-30 08:03] LABS: BASOPHIL % 0.2 % (0.0-2.0); EOSINOPHIL # 0.1 TH/MM3 (0-0.4); EOSINOPHIL % 0.8 % (0.0-4.0); HEMATOCRIT 31.2 % (35.0-46.0); HEMO FLAGS DIFF FINAL; LYMPH % 12.6 % (9.0-44.0); LYMPHOCYTE # 1.6 TH/MM3 (1.0-4.8); MEAN CELL VOLUME 87.6 FL (80.0-100.0); MEAN CORPUSCULAR HEMOGLOBIN 30.3 PG (27.0-34.0); MEAN CORPUSCULAR HGB CONC 34.6 % (32.0-36.0); MONO % 7.7 % (0.0-8.0); NEUT % 78.7 % (16.0-70.0); PLATELET COUNT 176 TH/MM3 (150-450); RED BLOOD COUNT 3.57 MIL/MM3 (4.00-5.30); RED CELL DISTRIBUTION WIDTH 12.8 % (11.6-17.2); WHITE BLOOD COUNT 12.8 TH/MM3 (4.0-11.0)
[2017-01-30 08:11] VITALS: BP 100/58; PULSE 90; RESP 18; TEMP 97.9; O2SAT 99
[2017-01-30] MEDS: SODIUM CHLOR 0.9% 1000 ML INJ 1,000 ML IV SCH ×3 (08:34→18:25)
[2017-01-30 08:41] LABS: ALKALINE PHOSPHATASE 149 U/L (45-117); ALT (GPT) 62 U/L (10-53); ANION GAP 10 MEQ/L (5-15); AST (GOT) 33 U/L (15-37); BICARBONATE 22.8 MEQ/L (21.0-32.0); BLOOD UREA NITROGEN 10 MG/DL (7-18); CHLORIDE 104 MEQ/L (98-107); GLOMERULAR FILTRATION RATE 111 ML/MIN (>89); POTASSIUM 3.4 MEQ/L (3.5-5.1); SODIUM (NA) 137 MEQ/L (136-145); TOTAL BILIRUBIN ADULT 0.9 MG/DL (0.2-1.0)
--- NOTE | 2017-01-30 09:03 | HHI.PR ---
Subjective Remarks Follow-up for nausea, vomiting, abdominal pain in a patient with a history of HIV and IV drug use. Patient complains of abdominal pain. Nausea and vomiting improved. Would like to eat. No fever or chills. Objective Vitals Vital Signs Date Time Temp Pulse Resp B/P (MAP) Pulse Ox O2 Delivery O2 Flow Rate FiO2 01/30/17 08:11 97.9 90 18 100/58 (72) 99 01/30/17 04:00 97.6 86 20 95/52 (66) 99 01/29/17 23:51 106 22 107/60 (76) 97 01/29/17 23:51 01/29/17 20:12 112 20 107/55 (72) 100 Room Air 01/29/17 16:49 100.8 130 26 108/63 (78) 98 01/29/17 16:49 26 Room Air 01/29/17 16:08 100.6 142 26 120/80 (93) 100 I/O 01/29/17 01/29/17 01/29/17 01/30/17 01/30/17 01/30/17 07:00 15:00 23:00 07:00 15:00 23:00 Intake Total 2300 ml 1000 ml Balance 2300 ml 1000 ml Intake IV Total 2300 ml 1000 ml # Voids 1 # Bowel Movements 0 Result Diagram: 01/30/17 0540 01/30/17 0540 Imaging Last Impressions Chest X-Ray 01/29/17 1613 Signed Impressions: Service Date/Time: Sunday, January 29, 2017 19:07 - CONCLUSION: No acute disease. Leonard Azevedo MD Chest CT 01/29/17 0000 Signed Impressions: Service Date/Time: Sunday, January 29, 2017 19:42 - CONCLUSION: Minimal suspected atelectasis or consolidation at the right lower lobe. Leonard Azevedo MD Abdomen/Pelvis CT 01/29/17 0000 Signed Impressions: Service Date/Time: Sunday, January 29, 2017 19:42 - CONCLUSION: 1. Nonspecific mild dilation of the small bowel. The cause is not seen. 2. Suspected small area of focal fatty infiltration at the anterior aspect of the liver in the region of the falciform ligament. Leonard Azevedo MD Objective Remarks GENERAL: Alert, oriented 3, NAD. SKIN: Warm and dry. HEAD: Normocephalic. EYES: No scleral icterus. No injection or drainage. NECK: Supple, trachea midline. No JVD or lymphadenopathy. CARDIOVASCULAR: Regular rate and rhythm without murmurs, gallops, or rubs. RESPIRATORY: Breath sounds equal bilaterally. No accessory muscle use. GASTROINTESTINAL: Abdomen soft, nondistended. Abdomen tender to palpation. MUSCULOSKELETAL: No cyanosis, or edema. BACK: Nontender without obvious deformity. No CVA tenderness. Procedures None A/P Assessment and Plan 21-year-old female with a past medical history significant for HIV and IV drug abuse presents with sepsis. - Sepsis Patient febrile, tachycardic with leukocytosis UA remarkable for UTI, urine cultures pending Chest CT with possible left lower lobe consolidation Blood cultures NG X 1 day. Concern for endocarditis, echo pending. Infectious disease consulted, appreciate recommendations Vancomycin and Zosyn IV fluid hydration Lactic acid 1.2 - Gastroenteritis - N/V improving. Continue fluid. - Patient wants to eat. Continue heart healthy diet. - HIV Patient does not know her last CD4 count CD4 CD8 count pending She states she has an infectious disease doctor and is compliant with her medications Will continue home medication once med reconciliation has been done - Hyponatremia - likely due to hypovolemia. Normal saline Na 129 --> 137. Likely hypovolumic hyponatremia. - IV drug abuse Patient quit IVDU for 4 months but relapsed about 6 weeks prior to this admission. Full code. Ambulation. Ruiz Hall DO Jan 30, 2017 09:03
[2017-01-30] MEDS: MORPHINE SULFATE 4 MG/ML INJ IV PUSH PRN ×4 (09:41→22:04)
[2017-01-30] MEDS: SODIUM CHLORIDE 0.9% FLUSH 10 ML FLUSH IV FLUSH SCH ×2 (09:44→20:23)
[2017-01-30 12:00] VITALS: BP 102/54; PULSE 85; RESP 18; TEMP 97.6; O2SAT 99
[2017-01-30] MEDS: VANCOMYCIN INJ 1,250 MG in SODIUM CHLOR 0.9% 250 ML INJ 250 ML IV SCH (12:38)
--- NOTE | 2017-01-30 14:21 | EKG ---
Date Performed: 01/29/2017 Time Performed: 17:04:49 PTAGE: 21 years EKG: SINUS TACHYCARDIA NONSPECIFIC T-WAVE ABNORMALITY ABNORMAL RHYTHM ECG PREVIOUS TRACING : 09/21/2016 20.03 Compared to prior tracing no significant change DOCTOR: Trevor Simmons Interpretating Date/Time 01/30/2017 14:15:57
--- NOTE | 2017-01-30 14:59 | MB ---
cc: JANE HIGUERA MD Corrected Copy: 01/31/17 DATE OF CONSULTATION: 01/30/2017 REQUESTING PHYSICIAN: Marleny Garcia. ATTENDING PHYSICIAN: Dr. Hall. REASON FOR CONSULTATION: 21-year-old female presenting with concern for infective endocarditis. HISTORY OF PRESENT ILLNESS This is a 21-year-old white female who presented to the emergency department on 01/29/2017 with fever, shortness of breath, abdominal pain and vomiting. The patient was reported to have used IV drugs 2 days prior. She denied to me that she used any IV drugs within the past few weeks. The patient notes that she used a tampon the night before she presented to emergency department and shortly thereafter she developed vomiting and started feeling sick. She is now complaining of abdominal cramping. Upon evaluation in the emergency department the patient had temperature of 100.8 degrees and heart rate of 112 and white count was elevated at 25.5. The chest x-ray reveals no acute disease. Chest CT scan was performed and showed minimal suspected atelectasis or consolidation at the right lower lobe. CT scan of abdomen and pelvis showed nonspecific mild dilatation of the small bowel. The patient has been drinking soup while I was interviewing her. She denied to me any zonia chills. Blood cultures were taken on admission and have no growth in 1 day. Urinalysis was performed and showed 13 white cells. Urine culture is pending. The patient's white blood cell count has improved today, it is down to 12.8. She does not appear to be in any acute distress. The patient was last admitted to the hospital in July 2016 and treated for staph aureus bacteremia and endocarditis. Upon SIENA the mitral valve appeared to have rather thickened leaflets and trace regurgitation. There was no evidence of endocarditis appreciated on that test. The 2-D echocardiogram also showed no evidence of endocarditis in July. PAST MEDICAL HISTORY: 1. Bacteremia due to MRSA in August 2015 2. Bacteremia due to staph aureus MSSA July 2016. 3. IVDU. 4. HIV ALLERGIES BUSPIRONE MEDICATIONS: 1. Vancomycin 2. Morphine sulfate p.r.n. 3. Piperacillin/tazobactam 4. Lovenox 5. Tylenol 6. Cascade 5 p.r.n. SOCIAL HISTORY The patient is single. Occasional tobacco. Occasional alcohol. Positive IV drugs. REVIEW OF SYSTEMS Pertinent mentioned above. In addition, the patient notes occasional headaches. PHYSICAL EXAMINATION IN GENERAL: This is a well-developed female who is in no acute distress. She is awake and alert and oriented. VITAL SIGNS: Include temperature 97.6, BP 102/54, respirations 18, Heart rate 85. HEAD, EYES, EARS, NOSE, AND THROAT: Extraocular movements grossly intact, pupils reactive to light. No icterus. No conjunctival erythema. Oropharynx moist mucosa without lesions. NECK: Supple. Decreased breath sounds. Slight rhonchi at the bases. HEART: Regular S1-S2 without murmurs or rubs or gallops. ABDOMEN: Bowel sounds present, soft, tenderness on palpation on both left and right lower quadrant. RECTUM: Rectal was not performed. EXTREMITIES: No clubbing or cyanosis or edema. SKIN: No rash. NEUROLOGIC: No gross focal findings. PSYCHIATRIC: The patient is calm and cooperative. LABORATORY DATA WBC 12.8, platelet 176, 78% neutrophils, 12% lymphocytes, hemoglobin 10.8. Creatinine 0.67, BUN 10, sodium 137, AST 33, ALT 62. IMPRESSION 1. Fever and leukocytosis in patient who has a history of IV drug use and history of bacteremia. 2. Abnormal urinalysis. Possible urinary tract infection. The patient reportedly recently use a tampon and subsequently developed nausea and vomiting and abdominal pain. Probable urinary tract infection accounting for her symptoms. 3. IV drug abuse 4. HIV disease in patient who has been on medication. It is unclear whether or not she is compliant with medication treatment. RECOMMENDATIONS 1. Continue vancomycin. 2. Continue piperacillin/tazobactam. 3. Monitor blood cultures. 4. Monitor urine cultures. 5. Follow the 2-D echocardiogram which has been ordered. 6. The patient should continue to take HIV medication. Follow the blood cultures and urine cultures. 7. Currently the patient does not appear toxic. However, given the fever. It is possible she may have bacteremia again. Thank you this consultation. I will follow progress with the and make further recommendations on followup if necessary. Jane Higuera MD FD/aura /2:15 PM /3:39 PM
[2017-01-30 16:00] VITALS: BP 102/61; PULSE 80; RESP 18; TEMP 97.8; O2SAT 100
[2017-01-30 20:00] VITALS: BP 108/57; PULSE 84; RESP 20; TEMP 97.6; O2SAT 100
[2017-01-30] MEDS: ENOXAPARIN SODIUM 40 MG/0.4 ML SYRINGE SQ SCH (22:03)
[2017-01-31] VITALS: BP 95/52; PULSE 86; RESP 19; TEMP 98; O2SAT 97
[2017-01-31] MEDS: VANCOMYCIN INJ 1,250 MG in SODIUM CHLOR 0.9% 250 ML INJ 250 ML IV SCH ×2 (00:15→12:37)
[2017-01-31] MEDS: PIPERACIL-TAZO 3.375 GM PREMIX 50 ML IV SCH ×4 (02:00→20:14)
[2017-01-31 04:00] VITALS: BP 103/58; PULSE 80; RESP 18; TEMP 98; O2SAT 98
[2017-01-31] MEDS: SODIUM CHLOR 0.9% 1000 ML INJ 1,000 ML IV SCH ×2 (04:34→08:45)
[2017-01-31] MEDS: MORPHINE SULFATE 4 MG/ML INJ IV PUSH PRN ×4 (07:57→22:15)
[2017-01-31] MEDS: SODIUM CHLORIDE 0.9% FLUSH 10 ML FLUSH IV FLUSH SCH ×2 (07:57→20:14)
[2017-01-31 08:00] VITALS: BP 97/55; PULSE 77; RESP 16; TEMP 97.8; O2SAT 100
[2017-01-31] MEDS ORDERED: NON-FORMULARY DRUG (Emtricitabine-Tenofovir Disoproxil Fumarate (Truvada) 1 TAB) PO SCH (09:00)
--- NOTE | 2017-01-31 10:04 | HHI.PR ---
Subjective Remarks Follow-up for nausea, vomiting, abdominal pain in a patient with a history of HIV and IV drug use. Patient is currently doing well. Sitting up and eating her breakfast. Denies any chest pain, shortness of breath, fever or chills. Objective Vitals Vital Signs Date Time Temp Pulse Resp B/P (MAP) Pulse Ox O2 Delivery O2 Flow Rate FiO2 01/31/17 08:00 97.8 77 16 97/55 (69) 100 01/31/17 04:00 98.0 80 18 103/58 (73) 98 01/31/17 00:00 98.0 86 19 95/52 (66) 97 01/30/17 20:00 97.6 84 20 108/57 (74) 100 01/30/17 16:00 97.8 80 18 102/61 (75) 100 01/30/17 12:00 97.6 85 18 102/54 (70) 99 I/O 01/30/17 01/30/17 01/30/17 01/31/17 01/31/17 01/31/17 07:00 15:00 23:00 07:00 15:00 23:00 Intake Total 1000 ml 1328 ml 895 ml Balance 1000 ml 1328 ml 895 ml Intake Oral 720 ml IV Total 1000 ml 1328 ml 175 ml # Voids 1 2 3 # Bowel Movements 0 0 0 Result Diagram: 01/30/17 0540 01/30/17 0540 Imaging Last Impressions Chest X-Ray 01/29/17 1613 Signed Impressions: Service Date/Time: Sunday, January 29, 2017 19:07 - CONCLUSION: No acute disease. Leonard Azevedo MD Chest CT 01/29/17 0000 Signed Impressions: Service Date/Time: Sunday, January 29, 2017 19:42 - CONCLUSION: Minimal suspected atelectasis or consolidation at the right lower lobe. Leonard Azevedo MD Abdomen/Pelvis CT 01/29/17 0000 Signed Impressions: Service Date/Time: Sunday, January 29, 2017 19:42 - CONCLUSION: 1. Nonspecific mild dilation of the small bowel. The cause is not seen. 2. Suspected small area of focal fatty infiltration at the anterior aspect of the liver in the region of the falciform ligament. Leonard Azevedo MD Objective Remarks GENERAL: Alert, oriented 3, NAD. SKIN: Warm and dry. HEAD: Normocephalic. EYES: No scleral icterus. No injection or drainage. NECK: Supple, trachea midline. No JVD or lymphadenopathy. CARDIOVASCULAR: Regular rate and rhythm without murmurs, gallops, or rubs. RESPIRATORY: Breath sounds equal bilaterally. No accessory muscle use. GASTROINTESTINAL: Abdomen soft, nondistended. Abdomen tender to palpation. MUSCULOSKELETAL: No cyanosis, or edema. BACK: Nontender without obvious deformity. No CVA tenderness. Procedures None A/P Assessment and Plan 21-year-old female with a past medical history significant for HIV and IV drug abuse presents with sepsis. - Sepsis Patient febrile, tachycardic with leukocytosis UA remarkable for UTI, urine cultures negative Chest CT with possible left lower lobe consolidation Blood cultures NG X 2 day. Concern for endocarditis, echo pending. Infectious disease following. Vancomycin and Zosyn Discontinue IV fluid Lactic acid 1.2 - Possible left-sided pneumonia - CT chest indicated possible left-sided consolidation. - If okay with infectious disease, we can switch IV antibiotics to by mouth Levaquin only. - If patient continues to do well tomorrow, we'll consider discharging patient home on 02/01/2017. - Gastroenteritis - N/V improving. - Patient is tolerating diet well. - HIV Patient does not know her last CD4 count CD4 CD8 count pending Patient is encouraged to follow-up with her outpatient infectious disease doctor regarding HIV. - Hyponatremia - likely due to hypovolemia. Normal saline Na 129 --> 137. Likely hypovolumic hyponatremia. - IV drug abuse Patient quit IVDU for 4 months but relapsed about 6 weeks prior to this admission. Full code. Ambulation. Discharge plan: Patient is currently afebrile, blood cultures negative urine culture negative. If okay with infectious disease, we can likely discharge patient on oral Levaquin for possible pneumonia. Ruiz Hall DO Jan 31, 2017 10:04 am
[2017-01-31] MEDS ORDERED: PHARMACY ORDERED LAB ONE (11:45)
[2017-01-31 12:00] VITALS: BP 100/52; PULSE 83; RESP 18; TEMP 97.6; O2SAT 98
--- NOTE | 2017-01-31 13:18 | HHI.IDPN ---
Note Infectious Disease Note Patient says she feels better. Afebrile. Notes that she still has some abdominal pain. No cough or SOB. Notes sweats. Denies chills. Drug toxicology screen positive. PAST MEDICAL HISTORY: 1. Bacteremia due to MRSA in August 2015 2. Bacteremia due to staph aureus MSSA July 2016. 3. IVDU. 4. HIV ALLERGIES BUSPIRONE MEDICATIONS: 1. Vancomycin 2. Piperacillin / tazobactam SOCIAL HISTORY The patient is single. Occasional tobacco. Occasional alcohol. Positive IV drugs. OBJECTIVE: Vital Signs Date Time Temp Pulse Resp B/P (MAP) Pulse Ox O2 Delivery O2 Flow Rate FiO2 01/31/17 12:00 97.6 83 18 100/52 (68) 98 01/31/17 08:00 97.8 77 16 97/55 (69) 100 01/31/17 04:00 98.0 80 18 103/58 (73) 98 01/31/17 00:00 98.0 86 19 95/52 (66) 97 01/30/17 20:00 97.6 84 20 108/57 (74) 100 01/30/17 16:00 97.8 80 18 102/61 (75) 100 Laboratory Tests Test 01/29/17 17:25 01/30/17 05:40 White Blood Count 25.5 TH/MM3 12.8 TH/MM3 Red Blood Count 4.49 MIL/MM3 3.57 MIL/MM3 Hemoglobin 13.4 GM/DL 10.8 GM/DL Hematocrit 39.5 % 31.2 % Mean Corpuscular Volume 87.8 FL 87.6 FL Mean Corpuscular Hemoglobin 29.8 PG 30.3 PG Mean Corpuscular Hemoglobin Concent 33.9 % 34.6 % Red Cell Distribution Width 12.8 % 12.8 % Platelet Count 187 TH/MM3 176 TH/MM3 Mean Platelet Volume 8.7 FL 8.5 FL Neutrophils (%) (Auto) 89.6 % 78.7 % Lymphocytes (%) (Auto) 5.8 % 12.6 % Monocytes (%) (Auto) 4.4 % 7.7 % Eosinophils (%) (Auto) 0.1 % 0.8 % Basophils (%) (Auto) 0.1 % 0.2 % Neutrophils # (Auto) 22.9 TH/MM3 10.0 TH/MM3 Lymphocytes # (Auto) 1.5 TH/MM3 1.6 TH/MM3 Monocytes # (Auto) 1.1 TH/MM3 1.0 TH/MM3 Eosinophils # (Auto) 0.0 TH/MM3 0.1 TH/MM3 Basophils # (Auto) 0.0 TH/MM3 0.0 TH/MM3 CBC Comment DIFF FINAL DIFF FINAL Differential Comment Laboratory Tests Test 01/29/17 17:25 01/30/17 05:40 Blood Urea Nitrogen 10 MG/DL 10 MG/DL Creatinine 0.79 MG/DL 0.67 MG/DL Random Glucose 88 MG/DL 76 MG/DL Total Protein 8.7 GM/DL 7.0 GM/DL Albumin 3.8 GM/DL 2.9 GM/DL Calcium Level 9.0 MG/DL 8.6 MG/DL Alkaline Phosphatase 198 U/L 149 U/L Aspartate Amino Transf (AST/SGOT) 60 U/L 33 U/L Alanine Aminotransferase (ALT/SGPT) 93 U/L 62 U/L Total Bilirubin 1.2 MG/DL 0.9 MG/DL Sodium Level 129 MEQ/L 137 MEQ/L Potassium Level 4.0 MEQ/L 3.4 MEQ/L Chloride Level 97 MEQ/L 104 MEQ/L Carbon Dioxide Level 23.3 MEQ/L 22.8 MEQ/L Anion Gap 9 MEQ/L 10 MEQ/L Estimat Glomerular Filtration Rate 92 ML/MIN 111 ML/MIN Lactic Acid Level 1.2 mmol/L Total Creatine Kinase 43 U/L Troponin I LESS THAN 0.02 NG/ML Lipase 43 U/L Microbiology Date/Time Source Procedure Growth Status 01/29/17 19:20 Blood Peripheral Aerobic Blood Culture - Preliminary NO GROWTH IN 2 DAYS Resulted 01/29/17 19:20 Blood Peripheral Anaerobic Blood Culture - Preliminary NO GROWTH IN 2 DAYS Resulted 01/29/17 19:10 Blood Peripheral Aerobic Blood Culture - Preliminary NO GROWTH IN 2 DAYS Resulted 01/29/17 19:10 Blood Peripheral Anaerobic Blood Culture - Preliminary NO GROWTH IN 2 DAYS Resulted 01/29/17 18:05 Urine Catheterized Urine Urine Culture - Final NO GROWTH IN 48 HOURS. Complete PHYSICAL EXAMINATION GENERAL: No acute distress. She is awake and alert and oriented. HEENT: Extraocular movements grossly intact, pupils reactive to light. No icterus. No conjunctival erythema. Oropharynx moist mucosa without lesions. NECK: Supple. Decreased breath sounds. No rhonchi. HEART: Regular S1-S2 without murmurs or rubs or gallops. ABDOMEN: Bowel sounds present, soft, tenderness on palpation on both left and right lower quadrant. EXTREMITIES: No clubbing or cyanosis or edema. SKIN: No rash. NEUROLOGIC: No gross focal findings. PSYCHIATRIC: Calm and cooperative. IMPRESSION 1. Fever and leukocytosis in patient who has a history of IV drug use with history of bacteremia. 2. Abnormal urine analysis. Possible urinary tract infection. 3. IV drug abuse 4. HIV disease in patient who has been on medication. It is unclear whether or not she is compliant with medication treatment. RECOMMENDATIONS 1. Continue vancomycin 2. Continue piperacillin / tazobactam 3. Monitor blood cultures 4. Monitor urine culture. No growth 24 hours. 5. Follow the 2-D echocardiogram which has been ordered. Can switch to PO Levaquin if Blood culture negative at 72 hours. 6. The patient should continue to take HIV medication. Jonas Mirza MD Jan 31, 2017 13:18
[2017-01-31 16:00] VITALS: BP 100/55; PULSE 95; RESP 18; O2SAT 100
--- NOTE | 2017-01-31 16:53 | ECHRPT ---
Indication: Acute and subacute endocarditis, unspecified CONCLUSIONS Normal left ventricular size and wall thickness. The left ventricular systolic function is normal wi th an estimated ejection fraction in the range of 60-65%. Left ventricular diastolic function parameters a re normal. There is mild to moderate tricuspid valve regurgitation. The estimated pulmonary arterial pressure is 38.1 mmHg. BP: / HR: 80 Rhythm: Sinus MEASUREMENTS (Male / Female) Normal Values Technical Quality:Good 2D ECHO LV Diastolic Diameter PLAX 3.9 cm 4.2 - 5.9 / 3.9 - 5.3 cm LV Systolic Diameter PLAX 2.7 cm IVS Diastolic Thickness 0.9 cm 0.6 - 1.0 / 0.6 - 0.9 cm LVPW Diastolic Thickness 0.9 cm 0.6 - 1.0 / 0.6 - 0.9 cm LV Relative Wall Thickness 0.5 LVOT Diameter 2.0 cm M-MODE Aortic Root Diameter MM 3.0 cm LA Systolic Diameter MM 2.7 cm LA Ao Ratio MM 0.9 AV Cusp Separation MM 2.0 cm DOPPLER AV Peak Velocity 149.0 cm/s AV Peak Gradient 8.9 mmHg LVOT Peak Velocity 129.0 cm/s LVOT Peak Gradient 6.7 mmHg AV Area Cont Eq pk 2.7 cm Mitral E Point Velocity 115.0 cm/s Mitral A Point Velocity 54.3 cm/s Mitral E to A Ratio 2.1 LV E' Lateral Velocity 15.8 cm/s Mitral E to LV E' Lateral Ratio 7.3 LV E' Septal Velocity 13.3 cm/s Mitral E to LV E' Septal Ratio 8.6 TR Peak Velocity 265.0 cm/s TR Peak Gradient 28.1 mmHg Right Atrial Pressure 10.0 mmHg Pulmonary Artery Systolic Pressu 38.1 mmHg Right Ventricular Systolic Press 38.1 mmHg PV Peak Velocity 137.0 cm/s PV Peak Gradient 7.5 mmHg FINDINGS LEFT VENTRICLE Normal left ventricular size and wall thickness. The left ventricular systolic function is normal wi th an estimated ejection fraction in the range of 60-65%. Left ventricular diastolic function parameters a re normal. RIGHT VENTRICLE Normal right ventricular size and systolic function. LEFT ATRIUM The left atrial size is normal. RIGHT ATRIUM The right atrial size is normal. ATRIAL SEPTUM Normal atrial septal thickness without atrial level shunting by limited color doppler interrogation. AORTA The aortic root and proximal ascending aorta are normal in size on limited imaging. MITRAL VALVE Structurally normal mitral valve. No mitral valve stenosis or regurgitation. AORTIC VALVE Trileaflet aortic valve. No aortic valve stenosis or regurgitation. TRICUSPID VALVE There is mild to moderate tricuspid valve regurgitation. The estimated pulmonary arterial pressure is 38.1 mmHg. PULMONARY VALVE No pulmonary valve regurgitation or stenosis. VESSELS The inferior vena cava is normal in size. PERICARDIUM No pericardial effusion. Colin Gallegos MD (Electronically Signed) Final Date:31 January 2017 16:53
[2017-01-31] MEDS: VANCOMYCIN INJ 1,750 MG in SODIUM CHLORID 0.9% 500 ML INJ 500 ML IV SCH (20:14)
[2017-01-31 21:16] VITALS: BP 115/64; PULSE 82; RESP 18; TEMP 99; O2SAT 99
[2017-01-31] MEDS: ENOXAPARIN SODIUM 40 MG/0.4 ML SYRINGE SQ SCH (22:16)
[2017-02-01 01:08] VITALS: BP 91/50; PULSE 73; RESP 18; TEMP 97.8; O2SAT 98
[2017-02-01] MEDS: PIPERACIL-TAZO 3.375 GM PREMIX 50 ML IV SCH ×2 (03:58→09:01)
[2017-02-01] MEDS: MORPHINE SULFATE 4 MG/ML INJ IV PUSH PRN ×2 (03:58→10:12)
[2017-02-01 06:19] VITALS: BP 98/55; PULSE 77; RESP 18; TEMP 98.1; O2SAT 98
[2017-02-01 07:52] LABS: AUTOMATED NEUTROPHIL # 2.2 TH/MM3 (1.8-7.7); BASOPHIL % 0.5 % (0.0-2.0); EOSINOPHIL # 0.4 TH/MM3 (0-0.4); EOSINOPHIL % 9.1 % (0.0-4.0); HEMATOCRIT 35.5 % (35.0-46.0); HEMO FLAGS DIFF FINAL; LYMPH % 24.1 % (9.0-44.0); MEAN CELL VOLUME 87.7 FL (80.0-100.0); MEAN CORPUSCULAR HEMOGLOBIN 29.9 PG (27.0-34.0); MEAN CORPUSCULAR HGB CONC 34.1 % (32.0-36.0); MONO % 11.4 % (0.0-8.0); NEUT % 54.9 % (16.0-70.0); PLATELET COUNT 246 TH/MM3 (150-450); RED BLOOD COUNT 4.05 MIL/MM3 (4.00-5.30); RED CELL DISTRIBUTION WIDTH 12.6 % (11.6-17.2); WHITE BLOOD COUNT 4.1 TH/MM3 (4.0-11.0)
[2017-02-01 08:05] LABS: BICARBONATE 24.3 MEQ/L (21.0-32.0); POTASSIUM 4.1 MEQ/L (3.5-5.1)
[2017-02-01 08:26] VITALS: BP 84/45; PULSE 70; RESP 20; TEMP 97.8; O2SAT 97
[2017-02-01] MEDS: SODIUM CHLORIDE 0.9% FLUSH 10 ML FLUSH IV FLUSH SCH (09:00)
[2017-02-01] MEDS: VANCOMYCIN INJ 1,750 MG in SODIUM CHLORID 0.9% 500 ML INJ 500 ML IV SCH (09:02)
[2017-02-01] MEDS ORDERED: LEVA750T9 PO (11:33)
[2017-02-01 12:00] VITALS: BP 105/53; PULSE 78; RESP 20; TEMP 98.6; O2SAT 99
[2017-02-01] MEDS ORDERED: LEVOFLOXACIN 750 MG TAB PO SCH (12:00)
--- NOTE | 2017-02-01 12:27 | RADRPT ---
EXAM DATE/TIME: 02/01/2017 12:18 [facility] COMPARISON: No previous studies available for comparison. INDICATIONS : Abdominal pain. MEDICAL HISTORY : HIV. Endocarditis SURGICAL HISTORY : Hernia repair. ENCOUNTER: Initial ACUITY: 1 day PAIN SCORE: 6/10 LOCATION: abdomen FINDINGS: Supine view of the abdomen was performed. The abdominal bowel gas pattern is normal. There is moder ate stool in the colon. No abnormal masses, calcifications, or organomegaly is seen. The osseous str uctures are unremarkable. Lung bases are clear. CONCLUSION: Benign abdomen. Abdifatah Pinzon MD on February 01, 2017 at 12:25 Board Certified Radiologist. This report was verified electronically.
--- NOTE | 2017-02-01 12:54 | HHI.DS ---
Discharge Summary Admission Date Jan 29, 2017 at 9:57 pm Discharge Date: Feb 01, 2017 Admitting Diagnosis sepsis, pneumonia, IVDU (1) Pneumonia ICD Code: J18.9 - Pneumonia, unspecified organism Diagnosis: Principal (2) IVDU (intravenous drug user) ICD Code: F19.90 - Other psychoactive substance use, unspecified, uncomplicated Status: Acute (3) HIV (human immunodeficiency virus infection) ICD Code: Z21 - Asymptomatic human immunodeficiency virus [HIV] infection status Status: Chronic (4) Sepsis ICD Code: A41.9 - Sepsis, unspecified organism Diagnosis: Principal Status: Acute Procedures None Brief History - From Admission 21-year-old female with a past medical history significant for HIV and IV drug abuse presents with a 2 day history of nausea/vomiting and severe abdominal pain. The patient is uncooperative during her interview, and either refuses to answer questions or answers them with a single word. The patient endorses subjective fever/chills. She states she has been unable to walk because her pain is so great. She reports abdominal distention and extreme tenderness to palpation. Laboratory values significant for leukocytosis of 25.5 with a left shift. She is hyponatremic with a sodium of 129 and a mild transaminitis. Urine consistent with UTI. CT of the abdomen/pelvis showed nonspecific mild dilation of the small bowel. Chest CT showed minimal suspected atelectasis or consolidation at the right lower lobe. Patient was febrile to 100.8 and remains tachycardic in the 130s. The patient admitted in the emergency department to using IV drugs 2 days ago however during our interview she states it has been several weeks. CBC/BMP: 02/01/17 0635 02/01/17 0635 Significant Findings Laboratory Tests Test 01/29/17 17:25 01/29/17 18:05 01/29/17 19:20 01/30/17 05:40 White Blood Count 25.5 TH/MM3 (4.0-11.0) 12.8 TH/MM3 (4.0-11.0) Neutrophils (%) (Auto) 89.6 % (16.0-70.0) 78.7 % (16.0-70.0) Lymphocytes (%) (Auto) 5.8 % (9.0-44.0) Neutrophils # (Auto) 22.9 TH/MM3 (1.8-7.7) 10.0 TH/MM3 (1.8-7.7) Monocytes # (Auto) 1.1 TH/MM3 (0-0.9) 1.0 TH/MM3 (0-0.9) Total Protein 8.7 GM/DL (6.4-8.2) Alkaline Phosphatase 198 U/L (45-117) 149 U/L (45-117) Aspartate Amino Transf (AST/SGOT) 60 U/L (15-37) Alanine Aminotransferase (ALT/SGPT) 93 U/L (10-53) 62 U/L (10-53) Total Bilirubin 1.2 MG/DL (0.2-1.0) Sodium Level 129 MEQ/L (136-145) Chloride Level 97 MEQ/L (98-107) Troponin I LESS THAN 0.02 NG/ML Lipase 43 U/L (73-393) Urine Protein 30 mg/dL (NEG-TRACE) Urine Occult Blood MOD (NEG) Urine Urobilinogen 4.0 MG/DL (LESS THAN Urine Leukocyte Esterase SMALL (NEG) Urine RBC 35 /hpf (0-3) Urine WBC 13 /hpf (0-5) Urine Mucus FEW /lpf (OCC) Prothrombin Time 13.4 SEC (9.8-11.6) Activated Partial Thromboplast Time 39.8 SEC (24.3-30.1) Red Blood Count 3.57 MIL/MM3 (4.00-5.30) Hemoglobin 10.8 GM/DL (11.6-15.3) Hematocrit 31.2 % (35.0-46.0) Albumin 2.9 GM/DL (3.4-5.0) Potassium Level 3.4 MEQ/L (3.5-5.1) Test 01/30/17 18:05 01/31/17 11:30 02/01/17 06:35 Urine Opiates Screen POS (NEG) Urine Amphetamines Screen POS (NEG) Urine Cannabinoids Screen POS (NEG) Vancomycin Level Trough 10.5 MCG/ML (5.0-10.0) Monocytes (%) (Auto) 11.4 % (0.0-8.0) Eosinophils (%) (Auto) 9.1 % (0.0-4.0) Imaging Last Impressions Abdomen X-Ray 02/01/17 0000 Signed Impressions: Service Date/Time: January 12:18 - CONCLUSION: Benign abdomen. Abdifatah Pinzon MD Chest X-Ray 01/29/17 1613 Signed Impressions: Service Date/Time: Sunday, January 29, 2017 19:07 - CONCLUSION: No acute disease. Leonard Azevedo MD Chest CT 01/29/17 0000 Signed Impressions: Service Date/Time: Sunday, January 29, 2017 19:42 - CONCLUSION: Minimal suspected atelectasis or consolidation at the right lower lobe. Leonard Azevedo MD Abdomen/Pelvis CT 01/29/17 0000 Signed Impressions: Service Date/Time: Sunday, January 29, 2017 19:42 - CONCLUSION: 1. Nonspecific mild dilation of the small bowel. The cause is not seen. 2. Suspected small area of focal fatty infiltration at the anterior aspect of the liver in the region of the falciform ligament. Leonard Azevedo MD PE at Discharge GENERAL: Alert, oriented 3, NAD. SKIN: Warm and dry. HEAD: Normocephalic. EYES: No scleral icterus. No injection or drainage. NECK: Supple, trachea midline. No JVD or lymphadenopathy. CARDIOVASCULAR: Regular rate and rhythm without murmurs, gallops, or rubs. RESPIRATORY: Breath sounds equal bilaterally. No accessory muscle use. GASTROINTESTINAL: Abdomen soft, nondistended. Abdomen tender to palpation. MUSCULOSKELETAL: No cyanosis, or edema. BACK: Nontender without obvious deformity. No CVA tenderness. Pt update on day of discharge Patient is doing well. Complains of some abdominal pain. Tolerating diet well. No fever, chills. ID cleared for discharge. Hospital Course 21-year-old female with a past medical history significant for HIV and IV drug abuse presents with sepsis. - Sepsis Patient febrile, tachycardic with leukocytosis UA remarkable for UTI, urine cultures negative Chest CT with possible left lower lobe consolidation Blood cultures NG X 3 day. Echo shows no evidence of vegetations. Infectious disease following. d/c Vanc/Zosyn, start Levaquin. - Possible left-sided pneumonia - CT chest indicated possible left-sided consolidation. - Will continue Levaquin for 5 days upon discharge today. - Gastroenteritis - N/V improving. - Patient is tolerating diet well. KUB unremarkable. - HIV Patient does not know her last CD4 count. Last CD4 count I see is from July 2016 and it was over 400. CD4 CD8 count pending Patient is encouraged to follow-up with her outpatient infectious disease doctor regarding HIV. - Hyponatremia - likely due to hypovolemia. Normal saline Na 129 --> 137. Likely hypovolumic hyponatremia. - IV drug abuse Patient quit IVDU for 4 months but relapsed about 6 weeks prior to this admission. Patient is heavily encouraged to abstain from IV drugs. Pt Condition on Discharge: Good Discharge Disposition: Discharge Home Discharge Time: <= 30 minutes Discharge Instructions DIET: Follow Instructions for: As Tolerated, No Restrictions Activities you can perform: Regular-No Restrictions Follow up Referrals: PCP Follow-up - 1 Week New Medications: Levofloxacin (Levaquin) 750 Mg Tablet 750 MG PO DAILY for Infection, #5 TAB 0 Refills Continued Medications: Clonazepam (Klonopin) 2 Mg Tab 2 MG PO BID, #60 TAB 0 Refills Emtricitabine-Tenofovir Disoproxil Fumarate (Truvada) 100-150 Mg Tab 1 TAB PO DAILY for Mgmt Viral Infection, #30 TAB 0 Refills Discontinued Medications: Cefazolin Inj (Cefazolin Inj) 2 Gm/50 Ml Bagp 2 GM IV Q8H for Infection for 30 Days, BAG 0 Refills Cephalexin (Keflex) 500 Mg Cap 500 MG PO Q6H for Infection for 5 Days, CAP 0 Refills Epinephrine Inj (Epinephrine Inj) 1 Mg/Ml Inj 0.3 MG IV PUSH ONCE PRN for ALLERGIC REACTION, #1 VIAL Epinephrine Inj (Epinephrine Inj) 1 Mg/Ml Inj 0.3 MG SQ ONCE PRN for ALLERGIC REACTION, #1 VIAL Give with any signs of respiratory distress. Hydrocortisone Inj (Solu-Cortef Inj) 250 Mg Inj 250 MG IV PUSH ONCE PRN for ALLERGIC REACTION, #1 VIAL 0 Refills Give over 30-60 seconds. Ibuprofen (Ibuprofen) 800 Mg Tab 800 MG PO Q6HR PRN for PAIN, #30 TAB 0 Refills Sulfamethoxazole-Trimethoprim (Bactrim DS) 800-160 Mg Tab 1 TAB PO BID for Infection, #20 TAB 0 Refills Ruiz Hall DO Feb 01, 2017 12:54
--- NOTE | 2017-02-01 12:55 | HHI.IDPN ---
Note Infectious Disease Note Patient says she feels better. Afebrile. Notes that she still has abdominal pain but is feels better. No cough or SOB. 2D ECHO negative. Blood culture has no growth. PAST MEDICAL HISTORY: 1. Bacteremia due to MRSA in August 2015 2. Bacteremia due to staph aureus MSSA July 2016. 3. IVDU. 4. HIV ALLERGIES BUSPIRONE MEDICATIONS: 1. Vancomycin 2. Piperacillin / tazobactam SOCIAL HISTORY The patient is single. Occasional tobacco. Occasional alcohol. Positive IV drugs. OBJECTIVE: Vital Signs Date Time Temp Pulse Resp B/P (MAP) Pulse Ox O2 Delivery O2 Flow Rate FiO2 02/01/17 10:34 16 02/01/17 08:26 97.8 70 20 84/45 (58) 97 02/01/17 06:19 98.1 77 18 98/55 (69) 98 02/01/17 01:08 97.8 73 18 91/50 (64) 98 01/31/17 21:16 99.0 82 18 115/64 (81) 99 01/31/17 16:00 95 18 100/55 (70) 100 Laboratory Tests Test 02/01/17 06:35 White Blood Count 4.1 TH/MM3 Red Blood Count 4.05 MIL/MM3 Hemoglobin 12.1 GM/DL Hematocrit 35.5 % Mean Corpuscular Volume 87.7 FL Mean Corpuscular Hemoglobin 29.9 PG Mean Corpuscular Hemoglobin Concent 34.1 % Red Cell Distribution Width 12.6 % Platelet Count 246 TH/MM3 Mean Platelet Volume 7.8 FL Neutrophils (%) (Auto) 54.9 % Lymphocytes (%) (Auto) 24.1 % Monocytes (%) (Auto) 11.4 % Eosinophils (%) (Auto) 9.1 % Basophils (%) (Auto) 0.5 % Neutrophils # (Auto) 2.2 TH/MM3 Lymphocytes # (Auto) 1.0 TH/MM3 Monocytes # (Auto) 0.5 TH/MM3 Eosinophils # (Auto) 0.4 TH/MM3 Basophils # (Auto) 0.0 TH/MM3 CBC Comment DIFF FINAL Differential Comment Laboratory Tests Test 02/01/17 06:35 Blood Urea Nitrogen 10 MG/DL Creatinine 0.77 MG/DL Random Glucose 82 MG/DL Calcium Level 8.9 MG/DL Sodium Level 138 MEQ/L Potassium Level 4.1 MEQ/L Chloride Level 104 MEQ/L Carbon Dioxide Level 24.3 MEQ/L Anion Gap 10 MEQ/L Estimat Glomerular Filtration Rate 95 ML/MIN Microbiology Date/Time Source Procedure Growth Status 01/29/17 19:20 Blood Peripheral Aerobic Blood Culture - Preliminary NO GROWTH IN 3 DAYS Resulted 01/29/17 19:20 Blood Peripheral Anaerobic Blood Culture - Preliminary NO GROWTH IN 3 DAYS Resulted 01/29/17 19:10 Blood Peripheral Aerobic Blood Culture - Preliminary NO GROWTH IN 3 DAYS Resulted 01/29/17 19:10 Blood Peripheral Anaerobic Blood Culture - Preliminary NO GROWTH IN 3 DAYS Resulted 01/29/17 18:05 Urine Catheterized Urine Urine Culture - Final NO GROWTH IN 48 HOURS. Complete PHYSICAL EXAMINATION GENERAL: No acute distress. She is awake and alert and oriented. HEENT: Extraocular movements grossly intact, pupils reactive to light. No icterus. No conjunctival erythema. Oropharynx moist mucosa without lesions. NECK: Supple. LUNGS: Decreased breath sounds. HEART: Regular S1-S2 without murmurs or rubs or gallops. ABDOMEN: Bowel sounds present, soft, mild tenderness on palpation on both left and right lower quadrant. EXTREMITIES: No clubbing or cyanosis or edema. SKIN: No rash. NEUROLOGIC: No gross focal findings. PSYCHIATRIC: Calm and cooperative. IMPRESSION 1. Fever and leukocytosis in patient who has a history of IV drug use with history of bacteremia. Improved. No evidence of endocarditis and blood cultures negative. 2. Abnormal urine analysis. culture negative. 3. IV drug abuse 4. HIV disease in patient who has been on medication. It is unclear whether or not she is compliant with medication treatment. RECOMMENDATIONS 1. Stop vancomycin 2. Stop piperacillin / tazobactam 3. Patient can be discharged on Levaquin PO x 5 days. 4. The patient should continue to take her HIV medication and follow up with her HIV physician. Jonas Mirza MD Feb 01, 2017 12:55
[2017-02-02 05:40] LABS: CD4/CD8 RATIO 0.9 (0.86-5.00)
[2017-02-02] MEDS ORDERED: PHARMACY ORDERED LAB ONE (07:45)
== END 2017-02-01 18:45 | disposition home or self-care (01) | DRG 975 ==
LOC: NEPC 16:06 → NEDA 21:57 → N05A 01-30 00:13
PROVIDERS: ADMIT Hospitalist; ATTEND Hospitalist
DX: B20 Human immunodeficiency virus [HIV] disease (principal); A41.9 Sepsis, unspecified organism; N39.0 Urinary tract infection, site not specified; J18.1 Lobar pneumonia, unspecified organism; E87.1 Hypo-osmolality and hyponatremia; J18.9 Pneumonia, unspecified organism; F19.10 Other psychoactive substance abuse, uncomplicated; K52.9 Noninfective gastroenteritis and colitis, unspecified; K59.00 Constipation, unspecified; F31.9 Bipolar disorder, unspecified; F90.9 Attention-deficit hyperactivity disorder, unspecified type; F11.10 Opioid abuse, uncomplicated; F15.10 Other stimulant abuse, uncomplicated; F17.219 Nicotine dependence, cigarettes, with unspecified nicotine-induced disorders; F41.9 Anxiety disorder, unspecified; F12.10 Cannabis abuse, uncomplicated; Z86.14 Personal history of Methicillin resistant Staphylococcus aureus infection
CPT/HCPCS: 71010; 71260; 74000; 74177; 76937; 80048; 80053; 80202; 80307; 81001; 82550; 83605; 83690; 84484; 84703; 85025; 85610; 85730; 86355; 86357; 86359; 86360; 87040; 87086; 93005; 93306; 96365; 96367; 96375; J1650; J2270; J2405; J2543; J3370; J7030; J7040; J7050; Q9967

== ENCOUNTER 2017-03-07 12:55 | Emergency (ER) | payer BC ==
[~2017-03-07] VITALS: Ht 177.8 cm; Wt 72.0 kg
[~2017-03-07 12:55] MED LIST changes: -BACT800T5 PO; -CEFA2SOL IV; -CEPH-460 PO; -EPIN1INJ21 IV PUSH; -EPIN1INJ21 SQ; -IBUP1TAB7 PO; +LEVA750T9 PO; -SOLU250I IV PUSH
[2017-03-07 13:00] VITALS: BP 103/57; PULSE 100; RESP 18; TEMP 98.6; O2SAT 100
[2017-03-07] MEDS ORDERED: SODIUM CHLORIDE 0.9% FLUSH 10 ML FLUSH IVF PRN (13:15)
[2017-03-07] MEDS ORDERED: DOLU1TAB4 PO (13:27)
[2017-03-07 13:40] LABS: BILIRUBIN, URINE NEG (NEG); BLOOD, URINE NEG (NEG); GLUCOSE,URINE NEG (NEG); KETONE, URINE NEG (NEG); NITRITE,URINE POS (NEG); URINE LEUKOCYTE ESTERASE SMALL (NEG)
[2017-03-07 13:41] LABS: URINE COLOR YELLOW (YELLW/STRAW)
[2017-03-07 13:53] LABS: BACTERIA, URINE MANY /hpf; WBC, URINE 15-19 /hpf (0-5)
[2017-03-07 13:54] LABS: AMORPHOUS SEDIMENT, URINE FEW; WHITE BLOOD CELL CLUMPS FEW
--- NOTE | 2017-03-07 13:54 | PD ---
HPI . Cough and congestion Right upper quadrant/right flank pain Chief Complaint: Cold / Flu Symptoms Time Seen by Provider: 13:11 Travel History International Travel<30 days: No Contact w/Intl Traveler<30days: No Traveled to known affect area: No History of Present Illness HPI This patient presents with 2 chief complaints. The first chief complaint is cough and congestion which has been present for a couple of weeks. She reports an associated fever with a MAXIMUM TEMPERATURE of 103.5 yesterday. She reports associated yellow sputum production. She states that she has not taken anything for her symptoms at home. Her second complaint is right upper quadrant/flank pain has been present for about a week. She states that it is so severe that it causes her to curl up in a ball. It is exacerbated by extending her back. She does not have any obvious cause for her symptoms such as urinary tract complaints or GI complaints. Pertinent medical history is HIV. She denied recent IV drug abuse. PFSH Past Medical History ADHD: Yes Arthritis: No Asthma: No Autoimmune Disease: Yes Bipolar Disorder: Yes Anxiety: Yes Depression: Yes Heart Rhythm Problems: No Cancer: No Cardiovascular Problems: Yes (ENDOCARDITIS) High Cholesterol: No Chemotherapy: No Chest Pain: No Congestive Heart Failure: No COPD: No Cerebrovascular Accident: No Diabetes: No Diminished Hearing: No Endocrine: No Gastrointestinal Disorders: Yes GERD: No Genitourinary: No Headaches: No Hepatitis: Yes (HEP C) Hiatal Hernia: No Heparin Induced Thrombocytopen: No Hypertension: No Immune Disorder: Yes (HIV: DIAGNOSED JANUARY 2014) Implanted Vascular Access Dvce: No Kidney Stones: No Musculoskeletal: No Neurologic: Yes Psychiatric: Yes Reproductive: No Respiratory: No Immunizations Current: Yes (ALL UTD ) Migraines: Yes Pneumonia: Yes (HX) Radiation Therapy: No Renal Failure: No Seizures: No Sickle Cell Disease: No Sleep Apnea: No Thyroid Disease: No Ulcer: No Influenza Vaccination: No ?: Unknown LMP: 11/2016 : 1 : 1 Past Surgical History Abdominal Surgery: Yes (hernia repair as an ) AICD: No Arteriovenous Shunt: No Cardiac Surgery: No Ear Surgery: No Endocrine Surgery: No Eye Surgery: No Genitourinary Surgery: No Gynecologic Surgery: No Hysterectomy: Yes (Endocarditis ) Insulin Pump: No Joint Replacement: No Neurologic Surgery: No Oral Surgery: No Pacemaker: No Thoracic Surgery: No Tonsillectomy: Yes Other Surgery: Yes ("shattered face" with stitches, LEFT ARM) Social History Alcohol Use: Yes (OCC) Tobacco Use: Yes (1PPD) Substance Use: Yes (HX OF meth, fentanyl, heroin. 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 Reported Meds & Prescriptions Reported Meds & Active Scripts Active Macrobid (Nitrofurantoin Monoh/Nitrofur Macro) 100 Mg Cap 100 Mg PO BID 5 Days Reported Tivicay (Dolutegravir Sodium) 10 Mg Tab Unknown Dose PO Truvada (Emtricitabine-Tenofovir Disoproxil Fumarate) 100-150 Mg Tab 1 Tab PO DAILY Review of Systems Except as stated in HPI: all other systems reviewed are Neg General / Constitutional: Positive: Fever, Chills HENT: Positive: Congestion Respiratory: Positive: Cough Gastrointestinal: Positive: Abdominal Pain, No: Nausea, Vomiting, Diarrhea Genitourinary: Positive: Flank Pain, No: Urgency, Frequency, Dysuria Physical Exam Narrative GENERAL: Awake and alert and in no acute distress. SKIN: warm/dry. Multiple tattoos. Normal color and turgor. HEAD: Normocephalic. Atraumatic. EYES: Pupils equal and round. No scleral icterus. No injection or drainage. ENT: No nasal bleeding or discharge. Mucous membranes pink and moist. Oropharynx has no erythema or exudate. NECK: Trachea midline. Full range of motion without pain.. No cervical lymphadenopathy. CARDIOVASCULAR: Regular rate and rhythm. Lungs are clear with full air movement throughout. RESPIRATORY: No accessory muscle use. Clear to auscultation. Breath sounds equal bilaterally. GASTROINTESTINAL: Abdomen soft. Nontender. Bowel sounds present. Nondistended. : No CVA tenderness. MUSCULOSKELETAL: No obvious deformities. NEUROLOGICAL: Awake and alert. No obvious cranial nerve deficits. Motor grossly within normal limits. Normal speech. PSYCHIATRIC: Appropriate mood and affect; insight and judgment normal. Data Data Last Documented VS Vital Signs Date Time Temp Pulse Resp B/P (MAP) Pulse Ox O2 Delivery O2 Flow Rate FiO2 03/07/17 13:00 98.6 100 18 103/57 (72) 100 Orders Orders Basic Metabolic Panel (Bmp) (03/07/17 13:11) Comprehensive Metabolic Panel (03/07/17 13:11) Influenzae A/B Antigen (03/07/17 13:11) Urinalysis - C+S If Indicated (03/07/17 13:11) Chest, Pa & Lat (03/07/17 13:11) Sodium Chloride 0.9% Flush (Ns Flush) (03/07/17 13:15) Lipase (03/07/17 13:11) Ed Urine Pregnancytest Poc (03/07/17 13:11) Complete Blood Count With Diff (03/07/17 13:32) Urine Culture (03/07/17 13:20) Drug Screen, Random Urine (03/07/17 13:55) Ceftriaxone Inj (Rocephin Inj) (03/07/17 14:15) Ketorolac Inj (Toradol Inj) (03/07/17 15:00) Ed Discharge Order (03/07/17 16:17) Labs Laboratory Tests Test 03/07/17 13:20 03/07/17 13:50 03/07/17 15:30 Urine Collection Type CLEAN CATCH Urine Color YELLOW Urine Turbidity SLIGHT Urine pH 6.0 Urine Specific [place] 1.011 Urine Protein TRACE mg/dL Urine Glucose (UA) NEG mg/dL Urine Ketones NEG mg/dL Urine Occult Blood NEG Urine Nitrite POS Urine Bilirubin NEG Urine Leukocyte Esterase SMALL Urine WBC 15-19 /hpf Urine WBC Clumps FEW Urine Squamous Epithelial Cells 6-8 /hpf Urine Amorphous Sediment FEW Urine Bacteria MANY /hpf Microscopic Urinalysis Comment CULTURE INDICATED Urine Collection Time 1320 Urine Opiates Screen NEG Urine Barbiturates Screen NEG Urine Amphetamines Screen NEG Urine Benzodiazepines Screen NEG Urine Cocaine Screen NEG Urine Cannabinoids Screen POS White Blood Count 8.9 TH/MM3 Red Blood Count 4.18 MIL/MM3 Hemoglobin 11.6 GM/DL Hematocrit 35.8 % Mean Corpuscular Volume 85.7 FL Mean Corpuscular Hemoglobin 27.7 PG Mean Corpuscular Hemoglobin Concent 32.3 % Red Cell Distribution Width 12.1 % Platelet Count 251 TH/MM3 Mean Platelet Volume 8.2 FL Neutrophils (%) (Auto) 64.8 % Lymphocytes (%) (Auto) 22.8 % Monocytes (%) (Auto) 9.8 % Eosinophils (%) (Auto) 0.8 % Basophils (%) (Auto) 1.8 % Neutrophils # (Auto) 5.7 TH/MM3 Lymphocytes # (Auto) 2.0 TH/MM3 Monocytes # (Auto) 0.9 TH/MM3 Eosinophils # (Auto) 0.1 TH/MM3 Basophils # (Auto) 0.2 TH/MM3 CBC Comment DIFF FINAL Differential Comment Blood Urea Nitrogen 9 MG/DL Creatinine 0.68 MG/DL Random Glucose 84 MG/DL Total Protein 7.7 GM/DL Albumin 3.2 GM/DL Calcium Level 8.7 MG/DL Alkaline Phosphatase 171 U/L Aspartate Amino Transf (AST/SGOT) 29 U/L Alanine Aminotransferase (ALT/SGPT) 44 U/L Total Bilirubin 0.7 MG/DL Sodium Level 133 MEQ/L Potassium Level 4.2 MEQ/L Chloride Level 102 MEQ/L Carbon Dioxide Level 22.7 MEQ/L Anion Gap 8 MEQ/L Estimat Glomerular Filtration Rate 109 ML/MIN Lipase 47 U/L MDM Medical Decision Making Medical Screen Exam Complete: Yes Emergency Medical Condition: Yes Medical Record Reviewed: Yes (Pt admitted 01/29-02/01 for sepsis, UTI and ? RLL infiltrate. She was treated in the hospital with vancomycin and Zosyn and was discharged on Levaquin. She had an echo done which was negative for valvular vegetations. BC remained neg. She is admitted to recent IV drug abuse in the emergency department then denied it to the admitting team.) Differential Diagnosis Differential diagnosis includes but is not limited to viral respiratory illness , bronchitis, pneumonia, allergies, CHF, asthma/COPD. Differential diagnosis of flank pain includes but is not limited to kidney stone , pyelonephritis, musculoskeletal pain, PE Narrative Course This is a patient who is HIV positive and is an IV drug abuser. She comes in with complaints of cough and congestion but also complaints of right upper quadrant/right flank pain. I have initiated a septic workup. CBC Diagram 03/07/17 13:50 UA>>pos nit, small LE, 15-19 WBCs, few WBC clumps, many bact Rocephin has been ordered. She does not meet SIRS criteria. CXR neg. it was independently viewed by me. Last Impressions Chest X-Ray 03/07/17 1311 Signed Impressions: Service Date/Time: Tuesday, March 07, 2017 13:26 - CONCLUSION: No acute cardiopulmonary process. Augie Angel MD BMP Diagram 03/07/17 15:30 Total Protein 7.7, Albumin 3.2 L, Calcium Level 8.7, Alkaline Phosphatase 171 H , Aspartate Amino Transf (AST/SGOT) 29, Alanine Aminotransferase (ALT/SGPT) 44, Total Bilirubin 0.7 Sepsis Criteria SIRS Criteria (2 or more): Heart rate over 90 Diagnosis Primary Impression: Upper respiratory infection Qualified Codes: J06.9 - Acute upper respiratory infection, unspecified; B97.89 - Other viral agents as the cause of diseases classified elsewhere Additional Impression: Urinary tract infection Qualified Codes: N30.00 - Acute cystitis without hematuria Patient Instructions: General Instructions, Upper Respiratory Infection (DC), Urinary Tract Infection in Women (DC) Additional Instructions: I recommend the use of a Neti Pot. You may use a nasal spray such as Afrin for up to 3 days as needed for nasal congestion. You may take an [id number] antihistamine such as Zyrtec, Mahnaz or Claritin as needed for runny secretions. You may take pseudoephedrine as needed for congestion. You will need to sign for this at the pharmacy. You may take plain Mucinex, 1200 mg twice a day as needed for thick secretions. You may take a cough syrup such as Delsym as needed for cough. Motrin as needed for fever and body aches. Throat lozenges/sprays as needed for sore throat. Warm salt water gargles for sore throat. Hot tea with lemon and honey also helps soothe a sore throat. Med/Other Pt SpecificInfo: Prescription(s) given Scripts Nitrofurantoin Monohydrate Macrocrystals (Macrobid) 100 Mg Cap 100 MG PO BID for Infection for 5 Days, #10 CAP 0 Refills Prov: Zoe Nuñez MD 03/07/17 Disposition: 01 DISCHARGE HOME Condition: Stable Zoe Nuñez MD Mar 07, 2017 13:54
[2017-03-07 14:02] LABS: AUTOMATED NEUTROPHIL # 5.7 TH/MM3 (1.8-7.7); BASOPHIL # 0.2 TH/MM3 (0-0.2); BASOPHIL % 1.8 % (0.0-2.0); EOSINOPHIL # 0.1 TH/MM3 (0-0.4); EOSINOPHIL % 0.8 % (0.0-4.0); HEMATOCRIT 35.8 % (35.0-46.0); HEMOGLOBIN 11.6 GM/DL (11.6-15.3); LYMPH % 22.8 % (9.0-44.0); MEAN CELL VOLUME 85.7 FL (80.0-100.0); MEAN CORPUSCULAR HEMOGLOBIN 27.7 PG (27.0-34.0); MEAN CORPUSCULAR HGB CONC 32.3 % (32.0-36.0); MEAN PLATELET VOLUME 8.2 FL (7.0-11.0); MONO % 9.8 % (0.0-8.0); MONOCYTE # 0.9 TH/MM3 (0-0.9); NEUT % 64.8 % (16.0-70.0); PLATELET COUNT 251 TH/MM3 (150-450); RED BLOOD COUNT 4.18 MIL/MM3 (4.00-5.30); RED CELL DISTRIBUTION WIDTH 12.1 % (11.6-17.2); WHITE BLOOD COUNT 8.9 TH/MM3 (4.0-11.0)
--- NOTE | 2017-03-07 14:14 | RADRPT ---
EXAM DATE/TIME: 03/07/2017 13:26 [facility] COMPARISON: No previous studies available for comparison. INDICATIONS : Cough MEDICAL HISTORY : HIV Hepatitis C. Pneumonia, Endocarditis SURGICAL HISTORY : None. ENCOUNTER: Initial ACUITY: 1 day PAIN SCORE: 10 LOCATION: Bilateral chest FINDINGS: PA and lateral views of the chest demonstrate the lungs to be symmetrically aerated without evidence of mass, infiltrate or effusion. The cardiomediastinal contours are unremarkable. Osseous structure s are intact. CONCLUSION: No acute cardiopulmonary process. Augie Angel MD on March 07, 2017 at 14:10 Board Certified Radiologist. This report was verified electronically.
[2017-03-07] MEDS ORDERED: cefTRIAXone INJ 1,000 MG in SODIUM CHLORIDE 0.9% INJ 100 ML IV ONE (14:15)
[2017-03-07] MEDS ORDERED: MACR100C2 PO (14:52)
[2017-03-07] MEDS ORDERED: KETOROLAC TROMETHAMINE 30 MG/ML (IVP) VIAL IV PUSH ONE (15:00)
[2017-03-07 15:55] LABS: CHLORIDE 102 MEQ/L (98-107); SODIUM (NA) 133 MEQ/L (136-145)
[2017-03-07 16:00] LABS: ALBUMIN 3.2 GM/DL (3.4-5.0); BICARBONATE 22.7 MEQ/L (21.0-32.0); BLOOD UREA NITROGEN 9 MG/DL (7-18); CALCIUM 8.7 MG/DL (8.5-10.1); GLUCOSE,RANDOM 84 MG/DL (74-106); LIPASE 47 U/L (73-393)
[2017-03-07 16:03] LABS: ALT (GPT) 44 U/L (10-53); AST (GOT) 29 U/L (15-37); CREATININE 0.68 MG/DL (0.50-1.00); GLOMERULAR FILTRATION RATE 109 ML/MIN (>89)
[2017-03-07 16:05] LABS: TOTAL BILIRUBIN ADULT 0.7 MG/DL (0.2-1.0); TOTAL PROTEIN 7.7 GM/DL (6.4-8.2)
[2017-03-07 16:06] LABS: ALKALINE PHOSPHATASE 171 U/L (45-117)
== END 2017-03-07 16:43 | disposition home or self-care (01) ==
LOC: PHEFT 12:55
DX: J06.9 Acute upper respiratory infection, unspecified (principal); N30.00 Acute cystitis without hematuria; F90.9 Attention-deficit hyperactivity disorder, unspecified type; F31.9 Bipolar disorder, unspecified; B19.20 Unspecified viral hepatitis C without hepatic coma; F17.210 Nicotine dependence, cigarettes, uncomplicated; F12.90 Cannabis use, unspecified, uncomplicated; B96.20 Unspecified Escherichia coli [E. coli] as the cause of diseases classified elsewhere; Z21 Asymptomatic human immunodeficiency virus [HIV] infection status
CPT/HCPCS: 71020; 80053; 80307; 81001; 83690; 84703; 85025; 87077; 87086; 87186; 87804; 96365; 96375; 99284; J0696; J1885

== ENCOUNTER 2017-06-12 20:20 | Emergency (ER) | payer BC ==
[~2017-06-12] VITALS: Ht 176.5 cm; Wt 75.5 kg
[~2017-06-12 20:20] MED LIST changes: +DOLU1TAB4 PO; -KLON2TAB PO; -LEVA750T9 PO; +MACR100C2 PO
[2017-06-12 20:28] VITALS: BP 122/78; PULSE 111; RESP 18; TEMP 99.6; O2SAT 99
--- NOTE | 2017-06-12 21:23 | PD ---
Physical Exam Date Seen by Provider: Jun 12, 2017 Time Seen by Provider: 20:46 Narrative 22 year old female presents to the emergency department for sore throat and she is also requesting a test. Patient states current pain is 9/10. Mild severity. Data Data Last Documented VS Vital Signs Date Time Temp Pulse Resp B/P (MAP) Pulse Ox O2 Delivery O2 Flow Rate FiO2 06/12/17 20:28 99.6 111 18 122/78 (93) 99 MDM Supervised Visit with [facility]SA: No Narrative Course 22 year old female presents to the emergency department requesting a test and complaining of a sore throat. Patient was initially seen in triage. She left AMA before she could be moved to a medical bed. Diagnosis Primary Impression: Left against medical advice Patient Instructions: General Instructions Departure Forms: Tests/Procedures Disposition: 07 AGAINST MEDICAL ADVICE Danielle Gillette Jun 12, 2017 21:23
== END 2017-06-12 20:46 | disposition left against medical advice (07) ==
LOC: NED 20:20
DX: J02.9 Acute pharyngitis, unspecified (principal); Z53.29 Procedure and treatment not carried out because of patient's decision for other reasons
CPT/HCPCS: 99281